=== PATIENT | male | born 1950 | race Caucasian/White ===

== ENCOUNTER 2018-08-16 14:28 | Inpatient (IN) ==
[2018-08-16] MEDS ORDERED: IPRATROPIUM/ALBUTEROL 3 ML AMPUL.NEB NEB ONE ×3 (14:31→19:34)
[2018-08-16] MEDS ORDERED: 0.9 % SODIUM CHLORIDE 1,000 ML IV ONE (14:31)
[2018-08-16 14:45] LABS: POC Blood Urea Nitrogen 19 mg/dl (8-23); POC CO2 22 mmol/L (22-30); POC Calcium, Ionized 1.14 mmol/L (1.16-1.32); POC Chloride 99 mmol/L (96-108); POC Creatinine 1.2 mg/dl (0.7-1.2); POC Glucose, Random 137 mg/dL (70-105); POC Potassium 5.3 mmol/L (3.3-5.1); POC Sodium 132 mmol/L (133-145)
--- NOTE | 2018-08-16 15:03 | Emergency Department Note ---
SOB HPI - General Chief Complaint: Shortness of Breath/Dyspnea Stated Complaint: Shortness of breath Time Seen by Provider: 08/16/18 14:49 Source: patient Mode of arrival: ambulatory Limitations: physical limitation - History of Present Illness This gentleman was wheezing and short of breath and feels like he has abdominal swelling pushing up into his lungs causing it to be difficult to breathe. He is felt like this bloating is been going on for the last week and a half. He is also noted that his legs have been swelling. He is concerned about may be having pulmonary edema, has not had this before. 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 He has no history of liver or kidney disease. No recent upper respiratory infection. He is gained 20 pounds in the last 2 weeks. He does have a history of a heart attack in his 30s in 1982 with an LAD that was two thirds blocked. He has not had angioplasty or bypass. - Related Data Home Medications Medication Instructions Recorded Confirmed Alprostadil [Edex] 40 mcg IC PRN PRN 08/16/18 08/16/18 Atenolol [Tenormin] 10 mg PO DAILY 08/16/18 08/16/18 FLUoxetine HCL [Prozac] 40 mg PO DAILY 08/16/18 08/16/18 HYDROcodone/APAP 10/325MG [[place] 1 tab PO Q4H PRN 08/16/18 08/16/18 10-325Mg] Ipratropium/Albuterol Sulfate 1 puff INH PRN PRN 08/16/18 08/16/18 [Combivent] Isosorbide Mononitrate [Isosorbide 120 mg PO DAILY 08/16/18 08/16/18 Mononitrate ER] Lisinopril [Zestril] 20 mg PO DAILY 08/16/18 08/16/18 OLANZapine [Zyprexa] 10 mg PO DAILY 08/16/18 08/16/18 Omeprazole [PriLOSEC] 20 mg PO BIDAC 08/16/18 08/16/18 amLODIPine [Norvasc] 5 mg PO DAILY 08/16/18 08/16/18 Allergies Allergy/AdvReac Type Severity Reaction Status Date / Time morphine [MORPHINE] Allergy Severe ITCHING Verified 08/16/18 15:00 oxycodone Allergy Unknown Verified 08/16/18 15:00 niacin [NIACIN] AdvReac Mild FLUSH Verified 08/16/18 15:00 aspirin AdvReac Itching Verified 08/16/18 15:01 Review of Systems Review of Systems: No fevers. No chills. Has had some sweats but he recently finished treatment under Dr. Saunders, oncologist of [facility] (sp?), 1 of the hormonal treatments for prostate cancer. No chest pain Has been coughing a fair amount and some wheezing this been significant. No phlegm or minimal. No nausea vomiting No dysuria or frequency Has some chronic back pain with history of surgery. No rashes Chronic anxiety and depression for which she recently has been placed on fluoxetine per Past Medical History - Past Medical History [facility] Narrative: Medical History (Last Updated 08/16/18 @ 16:25 by Ray Smith DO) Depression with anxiety (Chronic) Cigarette smoker (Chronic) Hypertension, essential (Chronic) Prostate cancer (Chronic) Obesity (BMI 30.0-34.9) (Chronic) CAD (coronary artery disease) (Chronic) Hx of myocardial infarction (Chronic) Past Surgical History (Last Updated 08/16/18 @ 16:28 by Ray Smith DO) S/P cholecystectomy (Acute) S/P lumbar discectomy (Acute) S/P lumbar fusion (Acute) Family History (Last Updated 08/16/18 @ 16:29 by Ray Smith DO) Father CAD (coronary artery disease) Diabetes mellitus Psychiatric history: Reports: anxiety, depression - Social History smoking status: Current every day smoker Packs per day: 1 Alcohol use: Reports: None Drug use: Reports: none. Denies: marijuana Physical Exam Limitations: physical limitation General appearance: alert, in distress (Mild tripoding and sitting up in chair, refuses bed.) Head: atraumatic, normocephalic Eye: Present: EOMI ENT: mucous membranes dry Neck: Present: trachea midline. Absent: lymphadenopathy, thyromegaly Chest: Present: symmetric chest wall rise Respiratory: Present: respiratory distress (Some rapid breathing.), rales/crack les (Trace), wheezes (Polyphonic expiratory mild moderately through multiple lung manning.), accessory muscle use (Mildly). Absent: stridor, prolonged expiratory phase Cardiovascular: Present: regular rate, normal rhythm. Absent: systolic murmur, diastolic murmur Abdominal: Present: soft. Absent: distention, tenderness, guarding, rebound, rigidity, organomegaly, mass Extremities: Present: pedal edema, pretibial edema (2+/4 pitting bilateral.). Absent: calf tenderness Neurological: Present: alert, oriented X3 Psychiatric: Present: normal affect, normal mood Skin: Present: warm, dry Course Vital Signs Pulse Rate 99 H 08/16/18 14:37 Respiratory Rate 30 H 08/16/18 14:37 Blood Pressure 141/121 08/16/18 14:37 Pulse Oximetry (%) 82 L 08/16/18 14:37 Pulse Rate 96 H 08/16/18 16:01 Respiratory Rate 22 08/16/18 15:09 Blood Pressure 117/77 08/16/18 16:01 Pulse Oximetry (%) 99 08/16/18 16:01 Shortness of Breath/Dyspnea - [facility] Narrative Medical decision making narrative: 2:52 PM - Patient received 1 DuoNeb early in his transport and stay. On my repeat exam was still wheezing and a second DuoNeb was ordered. Labs ordered. Ordered. ABG ordered. Chest x-ray is read as having increase in interstitial markings increased size of the heart but not specifically cardiomegaly at this point in time. No infiltrate visible. 3:32 PM - ABG demonstrates relatively normal pH and PCO2. PO2 is 69 but oximetry was 82%. Carboxyhemoglobin interestingly enough was 12%! We will place him on high flow oxygen. 4:00 PM - patient reports that he is not around any gas burning or propane burning or other sources of carbon monoxide that he is aware of. He does not have a sense of exhaust in his vehicle. He has not been in an enclosed garage around engines or equipment. He has had some headache and some dizziness recently. He is not had confusion or memory difficulties or visual disturbances. 5:10 PM - spoke with Dr. Lara, hospitalist, who kindly accepts this patient's care. He would like to have patient on BiPAP to help see if that will clear air spaces of her interstitial spaces of extra fluid. Patient is received furosemide 20 mg. His BNP was 2700; troponin less than 0.01. He was able to ambulate to the bathroom stably and easily and well. He still goes down to 84% on room air. We also concluded to go ahead with Solu- Medrol to 62.5 mg. Antibiotics are not being initiated at this point, patient had a procalcitonin less than 0.05. With patient having the 20 pound weight gain that is somewhat unexplained, if this does not turn around easily and well from a cardiopulmonary standpoint, consider CT scan of abdomen and pelvis. - Medical Records Medical records reviewed: Yes I reviewed the patient's medical records. - Lab Data Lab results reviewed: Yes I reviewed the patient's lab results. Result diagrams: 08/16/18 14:38 08/16/18 14:39 Lab Results 08/16/18 08/16/18 08/16/18 Range/Units 14:32 14:38 14:38 WBC 11.0 (4.5-11.0) K/mcL RBC 4.41 L (4.50-5.90) M/mcL Hgb 14.3 (13.5-16.5) g/dL Hct 43.0 (41.0-55.0) % POC Hct 44.0 (41.0-55.0) % MCV 97.6 (80.0-100.0) fL MCH 32.4 (26.0-34.0) pg MCHC 33.2 (31.0-36.0) g/dL RDW 16.3 H (11.5-14.5) % Plt Count 236 (140-440) K/mcL MPV 7.1 L (7.4-10.4) fL Gran % 83.5 H (38.0-78.0) % Lymph % (Auto) 9.5 L (15.5-49.0) % Dewey % (Auto) 6.0 (1.0-12.0) % Eos % (Auto) 0.7 (0.0-7.0) % Baso % (Auto) 0.3 (0.0-2.0) % Gran # 9.2 H (1.8-8.0) K/mcL Lymph # (Auto) 1.0 L (1.5-4.8) K/mcL Dewey # (Auto) 0.7 (0.1-0.9) K/mcL Eos # (Auto) 0.1 (0.0-0.7) K/mcL Baso # (Auto) 0 (0.0-0.3) K/mcL D-Dimer Patient Temperature ABG pH (7.35-7.45) U ABG pH (Temp Correct) ABG pCO2 (35.0-45.0) mmHg ABG pCO2 (Temp Corrct ABG pO2 (80-100) mmHg ABG pO2 (Temp Correct ABG HCO3 (22.0-26.0) mmol/L ABG Total CO2 (23.0-27.0) mmol/L ABG O2 Saturation (94.0-97.0) % ABG Base Excess (-2.0-2.0) ABG Methemoglobin (0.4-1.5) % VBG Lactic Acid (0.5-2.0) mmol/L Carboxyhemoglobin (0.0-1.5) % THgb Total Hemoglobin (13.5-16.5) gm/dL Respiration Rate O2 Delivery Method O2 Delivery Level Vent Mode FiO2 Tidal Volume PEEP POC Sodium 132 L (133-145) mmol/L Sodium 134 (133-145) mmol/L POC Potassium 5.3 H (3.3-5.1) mmol/L Potassium 5.6 H (3.3-5.1) mmol/L POC Chloride 99 (96-108) mmol/L Chloride 99 (96-108) mmol/L Carbon Dioxide 20 L (22-30) mmol/L POC Total CO2 22 (22-30) mmol/L Anion Gap 15.0 (8-16) POC BUN 19 (8-23) mg/dl BUN 17 (8-23) mg/dl Creatinine 1.2 (0.7-1.2) mg/dl POC Creatinine 1.2 (0.7-1.2) mg/dl GFR Calculation 63 Glucose 139 H (70-105) mg/dL POC Glucose 137 H (70-105) mg/dL Calcium 9.0 (8.6-10.4) mg/dl POC WB Ioniz Calcium 1.14 L (1.16-1.32) mmol/L Total Bilirubin 0.5 (0.0-1.0) mg/dL AST 14 (0-37) U/l ALT 52 H (0-40) U/l Alkaline Phosphatase 114 (39-117) U/L Total Creatine Kinase 194 (24-195) IU/L CK-MB (CK-2) 8.4 H (0-4.9) ng/ml Troponin T < 0.01 (0-0.03) ng/ml NT-Pro-B Natriuret Pep 2699.0 H (0-125) pg/ml Total Protein 6.0 (5.9-8.4) gm/dL Albumin 3.7 (3.2-5.2) gm/dL Globulin 2.3 (2.2-3.7) gm/dL Albumin/Globulin Ratio 1.6 (1.0-2.3) Procalcitonin (<0.10) ng/mL 08/16/18 08/16/18 08/16/18 Range/Units 14:38 14:38 14:39 WBC (4.5-11.0) K/mcL RBC (4.50-5.90) M/mcL Hgb (13.5-16.5) g/dL Hct (41.0-55.0) % POC Hct (41.0-55.0) % MCV (80.0-100.0) fL MCH (26.0-34.0) pg MCHC (31.0-36.0) g/dL RDW (11.5-14.5) % Plt Count (140-440) K/mcL MPV (7.4-10.4) fL Gran % (38.0-78.0) % Lymph % (Auto) (15.5-49.0) % Dewey % (Auto) (1.0-12.0) % Eos % (Auto) (0.0-7.0) % Baso % (Auto) (0.0-2.0) % Gran # (1.8-8.0) K/mcL Lymph # (Auto) (1.5-4.8) K/mcL [place]wey # (Auto) (0.1-0.9) K/mcL Eos # (Auto) (0.0-0.7) K/mcL Baso # (Auto) (0.0-0.3) K/mcL D-Dimer Cancelled Patient Temperature ABG pH (7.35-7.45) U ABG pH (Temp Correct) ABG pCO2 (35.0-45.0) mmHg ABG pCO2 (Temp Corrct ABG pO2 (80-100) mmHg ABG pO2 (Temp Correct ABG HCO3 (22.0-26.0) mmol/L ABG Total CO2 (23.0-27.0) mmol/L ABG O2 Saturation (94.0-97.0) % ABG Base Excess (-2.0-2.0) ABG Methemoglobin (0.4-1.5) % VBG Lactic Acid (0.5-2.0) mmol/L Carboxyhemoglobin (0.0-1.5) % THgb Total Hemoglobin (13.5-16.5) gm/dL Respiration Rate O2 Delivery Method O2 Delivery Level Vent Mode FiO2 Tidal Volume PEEP POC Sodium (133-145) mmol/L Sodium TNP (133-145) mmol/L POC Potassium (3.3-5.1) mmol/L Potassium TNP (3.3-5.1) mmol/L POC Chloride (96-108) mmol/L Chloride TNP (96-108) mmol/L Carbon Dioxide TNP (22-30) mmol/L POC Total CO2 (22-30) mmol/L Anion Gap TNP (8-16) POC BUN (8-23) mg/dl BUN TNP (8-23) mg/dl Creatinine TNP (0.7-1.2) mg/dl POC Creatinine (0.7-1.2) mg/dl GFR Calculation TNP Glucose TNP (70-105) mg/dL POC Glucose (70-105) mg/dL Calcium TNP (8.6-10.4) mg/dl POC WB Ioniz Calcium (1.16-1.32) mmol/L Total Bilirubin TNP (0.0-1.0) mg/dL AST TNP (0-37) U/l ALT TNP (0-40) U/l Alkaline Phosphatase TNP (39-117) U/L Total Creatine Kinase TNP (24-195) IU/L CK-MB (CK-2) (0-4.9) ng/ml Troponin T (0-0.03) ng/ml NT-Pro-B Natriuret Pep (0-125) pg/ml Total Protein TNP (5.9-8.4) gm/dL Albumin TNP (3.2-5.2) gm/dL Globulin TNP (2.2-3.7) gm/dL Albumin/Globulin Ratio TNP (1.0-2.3) Procalcitonin < 0.05 (<0.10) ng/mL 08/16/18 08/16/18 Range/Units 14:40 14:47 WBC (4.5-11.0) K/mcL RBC (4.50-5.90) M/mcL Hgb (13.5-16.5) g/dL Hct (41.0-55.0) % POC Hct (41.0-55.0) % MCV (80.0-100.0) fL MCH (26.0-34.0) pg MCHC (31.0-36.0) g/dL RDW (11.5-14.5) % Plt Count (140-440) K/mcL MPV (7.4-10.4) fL Gran % (38.0-78.0) % Lymph % (Auto) (15.5-49.0) % Dewey % (Auto) (1.0-12.0) % Eos % (Auto) (0.0-7.0) % Baso % (Auto) (0.0-2.0) % Gran # (1.8-8.0) K/mcL Lymph # (Auto) (1.5-4.8) K/mcL [place]wey # (Auto) (0.1-0.9) K/mcL Eos # (Auto) (0.0-0.7) K/mcL Baso # (Auto) (0.0-0.3) K/mcL D-Dimer Patient Temperature Not Reportable ABG pH 7.37 (7.35-7.45) U ABG pH (Temp Correct) Not Reportable ABG pCO2 39.5 (35.0-45.0) mmHg ABG pCO2 (Temp Corrct Not Reportable ABG pO2 69 L (80-100) mmHg ABG pO2 (Temp Correct Not Reportable ABG HCO3 22.1 (22.0-26.0) mmol/L ABG Total CO2 23.3 (23.0-27.0) mmol/L ABG O2 Saturation 80.3 L (94.0-97.0) % ABG Base Excess -3.0 L (-2.0-2.0) ABG Methemoglobin 0.3 L (0.4-1.5) % VBG Lactic Acid 2.2 H (0.5-2.0) mmol/L Carboxyhemoglobin 12.0 H (0.0-1.5) % THgb Total Hemoglobin 13.5 (13.5-16.5) gm/dL Respiration Rate Not Reportable O2 Delivery Method Not Reportable O2 Delivery Level Not Reportable Vent Mode Not Reportable FiO2 Not Reportable Tidal Volume Not Reportable PEEP Not Reportable POC Sodium (133-145) mmol/L Sodium (133-145) mmol/L POC Potassium (3.3-5.1) mmol/L Potassium (3.3-5.1) mmol/L POC Chloride (96-108) mmol/L Chloride (96-108) mmol/L Carbon Dioxide (22-30) mmol/L POC Total CO2 (22-30) mmol/L Anion Gap (8-16) POC BUN (8-23) mg/dl BUN (8-23) mg/dl Creatinine (0.7-1.2) mg/dl POC Creatinine (0.7-1.2) mg/dl GFR Calculation Glucose (70-105) mg/dL POC Glucose (70-105) mg/dL Calcium (8.6-10.4) mg/dl POC WB Ioniz Calcium (1.16-1.32) mmol/L Total Bilirubin (0.0-1.0) mg/dL AST (0-37) U/l ALT (0-40) U/l Alkaline Phosphatase (39-117) U/L Total Creatine Kinase (24-195) IU/L CK-MB (CK-2) (0-4.9) ng/ml Troponin T (0-0.03) ng/ml NT-Pro-B Natriuret Pep (0-125) pg/ml Total Protein (5.9-8.4) gm/dL Albumin (3.2-5.2) gm/dL Globulin (2.2-3.7) gm/dL Albumin/Globulin Ratio (1.0-2.3) Procalcitonin (<0.10) ng/mL - Radiology Data Radiology results reviewed: Yes I reviewed the patient's radiology results. - EKG Data EKG results narrative: No acute coronary syndrome findings. This ECG will be read by a equipment validation specialist. Disposition Pt seen by SALES PRODUCT MANAGER/PA only: No Clinical Impression: Hypoxia, Anasarca, Interstitial lung disease CHF (congestive heart failure) Qualifiers: Heart failure type: unspecified Heart failure chronicity: acute Qualified Code(s): I50.9 - Heart failure, unspecified Disposition: Xfer As Inpt ([facility]) Referrals: Papo Vega MD [Primary Care Provider] -
[2018-08-16 15:10] LABS: ABG HCO3 22.1 mmol/L (22.0-26.0); ABG Methemoglobin 0.3 % (0.4-1.5); ABG Oxygen Saturation 80.3 % (94.0-97.0); ABG PCO2 39.5 mmHg (35.0-45.0); ABG PH 7.37 U (7.35-7.45); ABG PO2 69 mmHg (80-100); ABG TCO2 23.3 mmol/L (23.0-27.0); Total Hemoglobin 13.5 gm/dL (13.5-16.5)
--- NOTE | 2018-08-16 15:13 | XRay Report ---
HISTORY: Shortness of breath FINDINGS: There are prominent increased interstitial lung markings bilaterally. Lung volumes are normal and there is no lobar consolidation or evidence of a mass. No pleural effusion is present. Although the heart is not enlarged, it has increased in size since 04/23/11. The interstitial lung disease has also become worse. IMPRESSION: Interstitial lung disease, predominantly involving the lower lobes. This could be a combination of underlying pulmonary fibrosis and inflammation. Superimposed congestive heart failure cannot be excluded. Increasing heart size since 2011 Interpreted and Authenticated by: Jose Gross 08/16/18
[2018-08-16 15:18] LABS: Basophils # (Auto) 0 K/mcL (0.0-0.3); Basophils % (Auto) 0.3 % (0.0-2.0); Eosinophils # (Auto) 0.1 K/mcL (0.0-0.7); Eosinophils % (Auto) 0.7 % (0.0-7.0); Granulocytes % (Auto) 83.5 % (38.0-78.0); Hemoglobin 14.3 g/dL (13.5-16.5); Lymphocytes % (Auto) 9.5 % (15.5-49.0); Mean Cell Volume 97.6 fL (80.0-100.0); Mean Corpuscular HGB Conc 33.2 g/dL (31.0-36.0); Mean Platelet Volume 7.1 fL (7.4-10.4); Monocytes # (Auto) 0.7 K/mcL (0.1-0.9); Platelet Count 236 K/mcL (140-440); RBC 4.41 M/mcL (4.50-5.90); Red Cell Distribution Width 16.3 % (11.5-14.5)
[2018-08-16] MEDS ORDERED: FUROSEMIDE 20 MG/2 ML VIAL IV ONE ×2 (15:26→17:05)
[2018-08-16 15:39] LABS: Creatine Kinase MB 8.4 ng/ml (0-4.9)
[2018-08-16 15:41] LABS: ALT/SGPT 52 U/l (0-40); AST/SGOT 14 U/l (0-37); Albumin 3.7 gm/dL (3.2-5.2); Albumin/Globulin Ratio 1.6 (1.0-2.3); Alkaline Phosphatase 114 U/L (39-117); Bilirubin,Total 0.5 mg/dL (0.0-1.0); Blood Urea Nitrogen 17 mg/dl (8-23); Carbon Dioxide 20 mmol/L (22-30); Chloride 99 mmol/L (96-108); Creatine Kinase 194 IU/L (24-195); Globulin 2.3 gm/dL (2.2-3.7); Glomerular Filtration Rate 63; Glucose 139 mg/dL (70-105); Potassium 5.6 mmol/L (3.3-5.1); Sodium 134 mmol/L (133-145)
[2018-08-16] MEDS ORDERED: methylPREDNISolone SOD SUCC 125 MG/2 ML VIAL IV ONE (17:23)
--- NOTE | 2018-08-16 18:30 | Internal Med History&Physical ---
Medical - H&P: [facility] Patient information: Note initiated : 08/16/18 at 6:27 pm Service Date, if different from initiated Date: [] Patient: Sam Dexter a 68 y/o M admitted on for SOB . Chief Complaint: [] Chief complaint: progressive shortness of breath, cough History of present illness: Mr. Dexter is a 68 year old M history of COPD/hypertension and coronary artery disease at age 33 who presents to 2 week onset of worsening shortness of breath, gradual weight gain, orthopnea and productive cough along with wheezing. Patient denied associated chest pain or changes in medication or NSAID intake. He tried to work with the symptoms only to get progressively worse with what started as dyspnea on maximal exertion dramatically progressed to dyspnea at rest along with orthopnea. In process patient endorses to gaining over 20 pounds weight mostly in the lower extremity and torso. He also continues to smoke a pack a day. He denies paroxysmal nocturnal dyspnea but endorses to non-bloody cough, denies chest palpitation, tearing headache, photophobia or fever. Denies sick contact. He lives alone and continues to smoke a pack a day. Denies alcohol or substance abuse. He denies previous hospitalization except for myocardial infarction is 33. Follows up with primary care physician Dr. Vega Review of systems 10 point review of system was performed and is negative except ones Medical - H&P: PMH Medical history: COPD Depression with anxiety (Chronic) Cigarette smoker (Chronic) Hypertension, essential (Chronic) Prostate cancer (Chronic) Obesity (BMI 30.0-34.9) (Chronic) History of [place]/CAD at age 33 (coronary artery disease) (Chronic) DJD GERD ANXIETY Past Surgical History S/P cholecystectomy (Acute) S/P lumbar discectomy (Acute) S/P lumbar fusion (Acute) Family History Father CAD (coronary artery disease) Diabetes mellitus Psychiatric history: Reports: anxiety, depression - Social History smoking status: Current every day smoker Packs per day: 1 Alcohol use: Reports: None Drug use: Reports: none. 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 Medical - H&P: Meds Home Medications Medication Instructions Recorded Confirmed Type Alprostadil [Edex] 40 mcg IC PRN PRN 08/16/18 08/16/18 History Atenolol [Tenormin] 10 mg PO DAILY 08/16/18 08/16/18 History FLUoxetine HCL [Prozac] 40 mg PO HS 08/16/18 08/17/18 History HYDROcodone/APAP 10/325MG [[place] 1 tab PO Q4H PRN 08/16/18 08/16/18 History 10-325Mg] Ipratropium/Albuterol Sulfate 1 puff INH PRN PRN 08/16/18 08/16/18 History [Combivent] Isosorbide Mononitrate [Isosorbide 120 mg PO DAILY 08/16/18 08/16/18 History Mononitrate ER] Lisinopril [Zestril] 20 mg PO DAILY 08/16/18 08/16/18 History OLANZapine [Zyprexa] 10 mg PO HS 08/16/18 08/17/18 History Omeprazole [PriLOSEC] 20 mg PO BIDAC 08/16/18 08/16/18 History amLODIPine [Norvasc] 5 mg PO DAILY 08/16/18 08/16/18 History Allergies Allergy/AdvReac Type Severity Reaction Status Date / Time aspirin AdvReac Mild Itching Verified 08/17/18 07:36 morphine [MORPHINE] AdvReac Mild Itching Verified 08/17/18 07:36 niacin [NIACIN] AdvReac Mild FLUSH Verified 08/16/18 15:00 oxycodone AdvReac Mild Itching Verified 08/17/18 10:18 Medical - H&P: Exam - Constitutional Vitals: Pulse Resp BP Pulse Ox 69 30 H 126/84 97 08/16/18 17:35 08/16/18 17:59 08/16/18 17:00 08/16/18 17:35 General appearance: average body habitus, no acute distress Exam: Short of breath but able to talk in near full sentences Head normocephalic Neck no lymphadenopathy oral cavity dry no ear discharge S1 and S2 regular rhythm no murmur Diminished breath sounds/bilateral late inspiratory crackles posteriorly and lateral chest Abdomen soft nontender Lower extremity bilateral pitting edema from knee to the dorsum of the foot Skin no suspicious lesion Psych alert cooperative Neuro nonfocal Medical - H&P: Reslt - Labs CBC & Chem 7: 08/17/18 03:45 08/17/18 03:45 Labs: Short CBC 08/16/18 Range/Units 14:38 WBC 11.0 (4.5-11.0) K/mcL Hgb 14.3 (13.5-16.5) g/dL Hct 43.0 (41.0-55.0) % Plt Count 236 (140-440) K/mcL BMP 08/16/18 08/16/18 14:38 14:39 Sodium 134 TNP Potassium 5.6 H TNP Chloride 99 TNP Carbon Dioxide 20 L TNP BUN 17 TNP Creatinine 1.2 TNP Glucose 139 H TNP Calcium 9.0 TNP Cardiac Enzymes 08/16/18 08/16/18 08/16/18 Range/Units 14:32 14:38 14:39 Total Creatine Kinase 194 TNP (24-195) IU/L CK-MB (CK-2) 8.4 H (0-4.9) ng/ml Troponin T < 0.01 (0-0.03) ng/ml Liver Function 08/16/18 08/16/18 Range/Units 14:38 14:39 Total Bilirubin 0.5 TNP (0.0-1.0) mg/dL AST 14 TNP (0-37) U/l ALT 52 H TNP (0-40) U/l Alkaline Phosphatase 114 TNP (39-117) U/L Albumin 3.7 TNP (3.2-5.2) gm/dL - ABG Interpretation ABG results: 08/16/18 14:40 ABG pH 7.37 ABG pCO2 39.5 ABG pO2 69 L ABG HCO3 22.1 ABG Total CO2 23.3 ABG O2 Saturation 80.3 L ABG Base Excess -3.0 L ABG Methemoglobin 0.3 L Medical - H&P: A/P (1) CHF (congestive heart failure) Current visit: Yes Status: Acute * Acute decompensated heart failure-start aggressive diuresis. Optimize management based on echo finding. Telemetry monitoring. * COPD exacerbation-continuous steroid/bronchodilators/smoking cessation counseling/oxygen * Hypoxic respiratory failure start noninvasive ventilation for increased work of breathing and clearing interstitial edema secondary to underlying CHF * Hypertension continue lisinopril/atenolol/amlodipine history of CAD continue isosorbide/ESTELA inhibitor * Anxiety disorder continue fluoxetine/olanzapine * GERD continue PPI * DJD continue home dose hydrocodone * Full code * Prophylaxis heparin Plan * Inpatient admission * Noninvasive ventilation * Aggressive diuresis/echocardiogram * Bronchodilators steroids * Smoking cessation counseling * Pre-existing medical condition management as above Time spent on his physical over 65 minutes, additional 25 minutes critical time spent on management of hypoxic respiratory failure/decompensated heart failure/noninvasive ventilation, reviewing blood gases and imaging (2) Hypoxia Current visit: Yes Status: Acute
[2018-08-16] MEDS ORDERED: MAGNESIUM SULFATE 2 GM/50 ML BAG IV PRN (19:19)
[2018-08-16] MEDS ORDERED: ACETAMINOPHEN 325 MG TABLET PO PRN (19:19)
[2018-08-16] MEDS ORDERED: ALPROSTADIL 40 MCG IC PRN (19:19)
[2018-08-16] MEDS ORDERED: ONDANSETRON 4 MG/2 ML VIAL IV PRN (19:19)
[2018-08-16] MEDS ORDERED: IPRATROPIUM/ALBUTEROL SULFATE 1 PUFF INHALER INH PRN (19:19)
[2018-08-16] MEDS ORDERED: ACETAMINOPHEN 1,000 MG/100 ML BOTTLE IV PRN (19:19)
[2018-08-16] MEDS ORDERED: POTASSIUM CHLORIDE 20 MEQ PACKET PO PRN (19:19)
[2018-08-16] MEDS: IPRATROPIUM/ALBUTEROL 3 ML AMPUL.NEB NEB SCH ×2 (19:28→23:20)
[2018-08-16] MEDS: BUDESONIDE 0.5 MG/2 ML AMPUL.NEB NEB SCH (19:28)
[2018-08-16 19:54] LABS: Appearance,Urine CLEAR; Bacteria,Urine 0 /hpf (0); Bilirubin,Urine NEG (NEG); Color,Urine YELLOW; Culture Indicated,Urine NO; Glucose,Urine (UA) NEGATIVE (NEG); Ketones,Urine NEG (NEG); Leukocyte Esterase,Urine NEG /uL (NEG); Mucus,Urine FEW /hpf (0); Nitrate,Urine NEG (NEG); Protein,Urine 100 mg/dL (NEG); Urine Blood NEG mg/dL (<0.03); Urine Hyaline Cast 14 /lpf (0-2); Urine RBC 1 /hpf (0-1); Urine Squamous Epithelial Cell 0 /hpf (0-4); Urine Transitional Epi Cells < 1 /hpf (0-2); Urine WBC 1 /hpf (0-4); Urobilinogen,Urine NEG (NEG)
[2018-08-16] MEDS: HYDROcodone/APAP 10/325MG TABLET PO PRN (20:34)
[2018-08-16] MEDS: OMEPRAZOLE 20 MG CAPSULE PO SCH (20:35)
[2018-08-16] MEDS: LEVOFLOXACIN 750 MG/150 ML BAG IV SCH (20:35)
[2018-08-16] MEDS: DOCUSATE SODIUM 100 MG CAPSULE PO SCH (21:25)
[2018-08-16] MEDS: SENNOSIDES/DOCUSATE SODIUM 1 TAB TABLET PO SCH (21:25)
[2018-08-16] MEDS: HEPARIN 5,000 UNIT/ML VIAL SQ SCH (21:25)
[2018-08-16] MEDS: 0.9 % SODIUM CHLORIDE 10 ML SYRINGE IV SCH (21:30)
[2018-08-16] MEDS: FLUoxetine HCL 20 MG CAPSULE PO SCH (22:56)
[2018-08-16] MEDS: OLANZapine 5 MG TABLET PO SCH (22:56)
[2018-08-17] MEDS ORDERED: FUROSEMIDE 40 MG/4 ML VIAL IV ONE ×2 (01:26→01:31)
[2018-08-17] MEDS: HYDROcodone/APAP 10/325MG TABLET PO PRN ×5 (01:31→20:23)
[2018-08-17] MEDS: IPRATROPIUM/ALBUTEROL 3 ML AMPUL.NEB NEB SCH ×4 (02:50→18:53)
[2018-08-17 06:09] LABS: Hematocrit 42.4 % (41.0-55.0); Hemoglobin 14.1 g/dL (13.5-16.5); Mean Cell Volume 98.3 fL (80.0-100.0); Mean Corpuscular HGB Conc 33.2 g/dL (31.0-36.0); Mean Platelet Volume 7.4 fL (7.4-10.4); Platelet Count 220 K/mcL (140-440); RBC 4.32 M/mcL (4.50-5.90); Red Cell Distribution Width 16.2 % (11.5-14.5); WBC 6.6 K/mcL (4.5-11.0)
[2018-08-17 06:33] LABS: ALT/SGPT 48 U/l (0-40); AST/SGOT 13 U/l (0-37); Albumin 3.7 gm/dL (3.2-5.2); Albumin/Globulin Ratio 1.5 (1.0-2.3); Alkaline Phosphatase 114 U/L (39-117); Bilirubin,Direct < 0.2 mg/dL (0.0-0.3); Bilirubin,Total 0.4 mg/dL (0.0-1.0); Blood Urea Nitrogen 17 mg/dl (8-23); Carbon Dioxide 22 mmol/L (22-30); Chloride 97 mmol/L (96-108); Gamma Glutamyl Transpeptidase 33 U/L (8-61); Globulin 2.4 gm/dL (2.2-3.7); Glomerular Filtration Rate 63; Glucose 168 mg/dL (70-105); Lactate Dehydrogenase 257 U/L (94-250); Magnesium 1.5 mg/dL (1.6-2.5); Potassium 4.9 mmol/L (3.3-5.1); Sodium 134 mmol/L (133-145); Triglycerides 90 mg/dl (<150); Uric Acid 5.3 mg/dL (2.5-8.0)
[2018-08-17] MEDS: 0.9 % SODIUM CHLORIDE 10 ML SYRINGE IV SCH ×3 (06:54→20:20)
[2018-08-17] MEDS: BUDESONIDE 0.5 MG/2 ML AMPUL.NEB NEB SCH ×3 (07:09→19:26)
[2018-08-17] MEDS: OMEPRAZOLE 20 MG CAPSULE PO SCH ×2 (07:42→16:24)
[2018-08-17] MEDS ORDERED: FUROSEMIDE 40 MG/4 ML VIAL IV SCH (08:00)
[2018-08-17 08:14] LABS: Anisocytosis 1+ (NONE SEEN); Band Neutrophils % 1 % (0-10); Lymphocytes % 6 % (15-49); Monocytes % (Manual) 2 % (1-12); Platelet Estimate NORMAL (NORMAL); RBC Morphology ABNORM (NORMAL); Segmented Neutrophils % 91 % (38-78)
[2018-08-17] MEDS ORDERED: ATENOLOL 25 MG TABLET PO SCH (09:00)
[2018-08-17] MEDS ORDERED: FLUoxetine HCL 20 MG CAPSULE PO SCH (09:00)
[2018-08-17] MEDS: LISINOPRIL 20 MG TABLET PO SCH (10:03)
[2018-08-17] MEDS: amLODIPine 5 MG TABLET PO SCH (10:03)
[2018-08-17] MEDS: ISOSORBIDE MONONITRATE 60 MG TAB.XL.24H PO SCH (10:03)
[2018-08-17] MEDS: THIAMINE 100 MG TABLET PO SCH (10:03)
[2018-08-17] MEDS: DOCUSATE SODIUM 100 MG CAPSULE PO SCH ×2 (10:03→20:19)
[2018-08-17] MEDS: MULTIVIT,THER IRON,CA,FA & MIN 1 TABLET PO SCH (10:03)
[2018-08-17] MEDS: HEPARIN 5,000 UNIT/ML VIAL SQ SCH ×2 (10:03→20:19)
[2018-08-17] MEDS: METOPROLOL SUCCINATE 25 MG TAB.XL.24H PO SCH (11:02)
--- NOTE | 2018-08-17 11:22 | Cat Scan Report ---
CLINICAL INFORMATION: COPD, pneumonia, cor pulmonale and prostate cancer COMPARISON: 04/13/10, 08/21/09 TECHNIQUE: 2.5 mm axial slices were obtained from the lung apices through the bases without intravenous contrast. Sagittal, coronal and axial reformatted images were processed and reviewed at bone, lung and soft tissue windows. 7 mm axial MIP images were also reconstructed. The radiation exposure was limited using dose reduction technology. FINDINGS: There is moderate centrilobular emphysema throughout both lungs with the greatest involvement in the upper lobes. This has gradually progressed since 2009. There is no evidence of pneumonia. There are bands of scar tissue in the right middle lobe, lingula and posteriorly in both lower lobes. Associated with this is some traction bronchiectasis in the medial segment of the right middle lobe. There are 8-10 small scattered peripheral noncalcified pulmonary nodules throughout both lungs. The largest is located laterally in the right lower lobe on image #[id number]. It Measures 10 mm. These nodules have been present for many years and there has been subtle variability in size of the nodules. The dominant nodule in the right lower lobe measured 8.3 mm in 2010. No new lung mass has developed. The pulmonary arteries are difficult to evaluate without contrast but there is enlargement of the central arteries. Main pulmonary artery is 3.8 cm in diameter. The ascending aorta is 3.3 cm in diameter. Pulmonary emboli cannot be detected on this study. There are a few reactive lymph nodes in the pretracheal retrocaval space. These were seen on prior studies and have not changed significantly. There is no pleural effusion. Patient does have bronchial wall thickening of both lower lobes and there are segments of the spleen; the third order branches in the medial and posterior basal segments of the right lower lobe. The heart is normal in size and contour. There is mild plaque formation in the left main proximal left anterior descending coronary artery. There is also plaque formation in the aorta. Bone windows show no lytic or blastic metastasis. IMPRESSION: Moderate emphysema which may cause pulmonary artery hypertension Multiple small peripheral pulmonary nodules. Some of them have increased in size when millimeter since 2010. These are most likely granulomata. Bronchitis in the lower lobes, right worse than left Interpreted and Authenticated by: Jose Gross 08/17/18
--- NOTE | 2018-08-17 14:48 | Internal Med Progress Note ---
Medical - PN: Subj Patient information: Note initiated : 08/17/18 at 2:46 pm Service Date, if different from initiated Date: [] Patient: Sam Dexter 68 y/o M admitted on 08/16/18 for SOB . Chief Complaint: [] Interval history: Mr. Dexter is a 68 year old M history of COPD/hypertension and coronary artery disease at age 33 who presents to 2 week onset of worsening shortness of breath, gradual weight gain, orthopnea and productive cough along with wheezing. Patient denied associated chest pain or changes in medication or NSAID intake. He tried to work with the symptoms only to get progressively worse with what started as dyspnea on maximal exertion dramatically progressed to dyspnea at rest along with orthopnea. In process patient endorses to gaining over 20 pounds weight mostly in the lower extremity and torso. He also continues to smoke a pack a day. He denies paroxysmal nocturnal dyspnea but endorses to non-bloody cough, denies chest palpitation, tearing headache, photophobia or fever. Denies sick contact. He lives alone and continues to smoke a pack a day. Denies alcohol or substance abuse. He denies previous hospitalization except for myocardial infarction is 33. Follows up with primary care physician Dr. Vega 08/17-patient clinically improving. Improved hypoxia. Off noninvasive ventilation currently on 4 L oxygen. However echocardiograms revealed severe hypertension with cor pulmonale. Tachycardic at 130s. Diuresis is discontinued as cardiac output preload dependent. Atenolol discontinued and switched to metoprolol. CT scan reveals emphysematous change. Neurology consulted for evaluation of severe pulmonary hypertension. Patient will require right heart catheterization/cardiology follow-up for better optimization of pulmonary hypertension. At this time patient will be continued on oxygen. Continue levofloxacin for COPD exacerbation along with bronchodilators. Discussed echo finding along with treatment plan with patient. - Constitutional Vitals: Vital Signs Temp Pulse Resp BP Pulse Ox 96.6 F L 111 H 24 H 102/61 90 08/17/18 11:51 08/17/18 11:51 08/17/18 11:51 08/17/18 11:51 08/17/18 11:51 Period Temp Pulse Resp BP Sys/Nuñez Pulse Ox Last 24 Hr 96.6 F-99.2 F 57-123 12-30 87-154/59-135 81-100 Intake and Output 08/17/18 08/17/18 08/17/18 05:59 13:59 21:59 Intake Total 387 530 Output Total 1575 1300 Balance -1188 -770 Weight 176 lb 8 oz Patient Weight 08/18/18 05:59 Weight 176 lb 8 oz Intake & Output: Intake & Output 08/17/18 08/17/18 08/17/18 05:59 13:59 21:59 Intake Total 387 530 Output Total 1575 1300 Balance -1188 -770 Weight 176 lb 8 oz Intake: IV 150 50 Oral 237 480 Output: Void Amount 1575 1300 Other: Meal 2 sandwiches/fruit cup Percent of Meal Consumed 100% Feeding Ability Independent Urine Appearance Clear Urine Color Bright Yellow General appearance: no acute distress Exam: Alert Much improved breathing Improving lymphedema Tachycardia Course respiratory crackles bilaterally Medical - PN: Obj Da - Labs CBC & Chem 7: 08/17/18 03:45 08/17/18 03:45 Labs: Abnormal Lab Results 08/17/18 08/17/18 08/16/18 03:45 03:45 19:15 RBC 4.32 L RDW 16.2 H MPV Gran % Lymph % (Auto) Gran # Lymph # (Auto) Seg Neutrophils % 91 H Lymphocytes % 6 L RBC Morphology Abnorm A Anisocytosis 1+ A ABG pO2 ABG O2 Saturation ABG Base Excess ABG Methemoglobin VBG Lactic Acid Carboxyhemoglobin POC Sodium POC Potassium Potassium Carbon Dioxide Glucose 168 H POC Glucose POC WB Ioniz Calcium Magnesium 1.5 L ALT 48 H Lactate Dehydrogenase 257 H CK-MB (CK-2) NT-Pro-B Natriuret Pep Urine Protein 100 A Hyaline Casts 14 H 08/16/18 08/16/18 08/16/18 14:47 14:40 14:38 RBC RDW MPV Gran % Lymph % (Auto) Gran # Lymph # (Auto) Seg Neutrophils % Lymphocytes % RBC Morphology Anisocytosis ABG pO2 69 L ABG O2 Saturation 80.3 L ABG Base Excess -3.0 L ABG Methemoglobin 0.3 L VBG Lactic Acid 2.2 H Carboxyhemoglobin 12.0 H POC Sodium 132 L POC Potassium 5.3 H Potassium 5.6 H Carbon Dioxide 20 L Glucose 139 H POC Glucose 137 H POC WB Ioniz Calcium 1.14 L Magnesium ALT 52 H Lactate Dehydrogenase CK-MB (CK-2) 8.4 H NT-Pro-B Natriuret Pep 2699.0 H Urine Protein Hyaline Casts 08/16/18 14:38 RBC 4.41 L RDW 16.3 H MPV 7.1 L Gran % 83.5 H Lymph % (Auto) 9.5 L Gran # 9.2 H Lymph # (Auto) 1.0 L Seg Neutrophils % Lymphocytes % RBC Morphology Anisocytosis ABG pO2 ABG O2 Saturation ABG Base Excess ABG Methemoglobin VBG Lactic Acid Carboxyhemoglobin POC Sodium POC Potassium Potassium Carbon Dioxide Glucose POC Glucose POC WB Ioniz Calcium Magnesium ALT Lactate Dehydrogenase CK-MB (CK-2) NT-Pro-B Natriuret Pep Urine Protein Hyaline Casts Meds: Medications Acetaminophen (Tylenol) 650 mg PO Q4-6HP PRN PRN Reason: PAIN/FEVER > 101 Hydrocodone Bitart/Acetaminophen ([place] 10/325mg) 1 tab PO Q4HP PRN PRN Reason: Pain Last Admin: 08/17/18 12:12 Dose: 1 tab Documented by: Albuterol/Ipratropium (Combivent) 1 puff INH Q4HP PRN PRN Reason: Shortness Of Breath Albuterol/Ipratropium (Duoneb) 3 ml NEB Q6HRT [facility] Amlodipine Besylate (Norvasc) 5 mg PO DAILY [facility] Last Admin: 08/17/18 10:03 Dose: 5 mg Documented by: Budesonide (Pulmicort) 0.5 mg NEB Q12 [facility] Last Admin: 08/17/18 07:09 Dose: 0.5 mg Documented by: Docusate Sodium (Colace) 100 mg PO BID [facility] Last Admin: 08/17/18 10:03 Dose: 100 mg Documented by: Fluoxetine HCl (Prozac) 40 mg PO HS [facility] Last Admin: 08/16/18 22:56 Dose: 40 mg Documented by: Heparin Sodium (Porcine) (Heparin) 5,000 unit SQ Q12 [facility] Last Admin: 08/17/18 10:03 Dose: 5,000 unit Documented by: Levofloxacin (Levaquin) 750 mg in 150 mls @ 100 mls/hr IV Q24H [facility]; Protocol Last Infusion: 08/16/18 22:10 Dose: Infused Documented by: Magnesium Sulfate (Magnesium Sulfate) 2 gm in 50 mls @ 50 mls/hr IV UD PRN PRN Reason: MG = or < 1.7 Last Infusion: 08/17/18 08:45 Dose: Infused Documented by: Acetaminophen (Ofirmev) 1,000 mg in 100 mls @ 200 mls/hr IV Q6HP PRN PRN Reason: PAIN/FEVER > 101 Iron Carb/Multivit/Recording Engineer/Folic Acid (Multivitamin W/Minerals) 1 tab PO DAILY [facility] Last Admin: 08/17/18 10:03 Dose: 1 tab Documented by: Isosorbide Mononitrate (Imdur) 120 mg PO DAILY [facility] Last Admin: 08/17/18 10:03 Dose: 120 mg Documented by: Lisinopril (Zestril) 20 mg PO DAILY [facility] Last Admin: 08/17/18 10:03 Dose: 20 mg Documented by: Metoprolol Succinate (Toprol Xl) 25 mg PO DAILY [facility] Last Admin: 08/17/18 11:02 Dose: 25 mg Documented by: Olanzapine (Zyprexa) 10 mg PO HS [facility] Last Admin: 08/16/18 22:56 Dose: 10 mg Documented by: Omeprazole (Prilosec) 20 mg PO BIDAC [facility] Last Admin: 08/17/18 07:42 Dose: 20 mg Documented by: Ondansetron HCl (Zofran) 4 mg IV Q4-6HP PRN PRN Reason: Nausea And Vomiting Potassium Chloride (Klor-Con) 40 meq PO DAILYP PRN PRN Reason: K+ < 3.5 Senna/Docusate Sodium (Senna Plus Tablet) 1 tab PO HS [facility] Last Admin: 08/16/18 21:25 Dose: 1 tab Documented by: Sodium Chloride (Saline Flush) 10 ml IV Q8 [facility] Last Admin: 08/17/18 06:54 Dose: Not Given Documented by: Thiamine HCl (Vitamin B1) 100 mg PO DAILY [facility] Last Admin: 08/17/18 10:03 Dose: 100 mg Documented by: - ABG Interpretation ABG results: 08/16/18 14:40 ABG pH 7.37 ABG pCO2 39.5 ABG pO2 69 L ABG HCO3 22.1 ABG Total CO2 23.3 ABG O2 Saturation 80.3 L ABG Base Excess -3.0 L ABG Methemoglobin 0.3 L Medical - PN: A/P - Time Spent With Patient Total time spent is greater than 50% in coordination of care (as documented) at patient's floor/unit and/or counseling patient: 25 - 35 minutes (1) CHF (congestive heart failure) Status: Acute Assessment and plan: * Severe pulmonary hypertension with cor pulmonale-oncology consulted. Patient on oxygen. Lower diuretic dose to avoid preload drop. Continue telemetry monitoring. Start beta shawn. Patient will need outpatient cardiology fol low-up/right heart catheterization for evaluation of pulmonary hypertension etiology. * COPD exacerbation-continuous steroid/bronchodilators/smoking cessation counseling/oxygen * Hypoxic respiratory failure off noninvasive ventilation. Currently on 4 L oxygen. Perform exercise or nocturnal oximetry/home oxygen * Hypertension continue lisinopril/atenolol/amlodipine history of CAD continue isosorbide/ESTELA inhibitor. Start beta shawn admission release metoprolol * Anxiety disorder continue fluoxetine/olanzapine * GERD continue PPI * DJD continue home dose hydrocodone * Full code * Prophylaxis heparin Plan * Pulmonary consult * Lower diuretic dose * Continue Bronchodilators steroids * Exercise/nocturnal oximetry/home oxygen on discharge * Cardiology follow-up for right heart catheterization/pulmonary hypertension evaluation * Continue Smoking cessation counseling * Pre-existing medical condition management as above Current Visit: Yes (2) Hypoxia Status: Acute Current Visit: Yes Medical - PN: Qual - Stroke Symptom Onset Unknown: No - VTE Deep Vein Thrombosis/Pulmonary Embolism Present on Admission: No
--- NOTE | 2018-08-17 15:25 | Consultation ---
DATE OF CONSULTATION: 08/17/2018 REQUESTING PHYSICIAN: Joseph Mcclure MD CONSULTING PHYSICIAN: Severo Devine MD HISTORY OF PRESENT ILLNESS: The patient is a 68-year-old gentleman who presented last evening to [facility] because of a chief complaint of increasing shortness of breath and cough. He does have a [id number] tobacco use history and continues to smoke. He indicates that he had become more difficult with his breathing and having swelling over the last 2 to 3 weeks. He had an arterial blood gas which showed a PaO2 of 65, PaCO2 of 39.5, a pH of 7.37 and a 12% carboxyhemoglobin level. He denied known source of his carbon monoxide level other than his smoking. He states that is approximately a pack plus of cigarettes a day. Echocardiogram subsequently demonstrated the presence of pulmonary hypertension with right ventricular enlargement and right ventricular systolic pressures in the 60s and 70s, estimated. The patient had not been on oxygen prior to presenting to the hospital. He was using albuterol and Combivent. He has been trying to get his health care through the [place] [facility] system. He reports a history of myocardial infarction in his early 30s. He apparently had a workup at the [place] in [place] approximately 8 years ago. He reports at that time he did have some atherosclerotic lesions, but they were either not in need of treatment or were in locations where a stent could not be delivered. He describes a dry cough going back some years, usually productive of clear sputum. He reports spring allergies. 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 He denies unusual pets, plants, or birds in the home. He does have fairly profound symptomatic gastroesophageal reflux disease. This time he is only treating stomach acid and is encouraged to implement an antireflux regimen with elevation of head of bed, empty stomach at bedtime and weight reduction as well. Regarding his pulmonary hypertension, he is given a description of circulation and hypoxic pulmonary vasoconstriction. He has carbon monoxide level of 12%. It is hard to imagine that he was not hypoxic for some extended period of time, perhaps contributing to his pulmonary hypertension. With his history of coronary artery disease, likely his pulmonary hypertension is multifactorial. He is encouraged as was discussion with Dr. Mcclure to consider cardiology evaluation in detail and consideration of right heart catheterization to better understand his pulmonary hypertension given his young age at 68 years. The patient does have issues with chronic pain and has a medical regimen, which includes hydrocodone. This could contribute to a central sleep apnea. He sleeps alone and has poor sleep secondary to pain issues. REVIEW OF SYSTEMS: Otherwise, negative on questioning in a detailed fashion. PHYSICAL EXAMINATION: GENERAL: A pleasant stated-age appearing gentleman in mild respiratory distress. High flow nasal prongs oxygen in place. HEAD: Atraumatic and normocephalic. NECK: Supple, carotids difficult to hear through high flow nasal cannula, but no apparent bruits. Neck is supple. LUNGS: Significant prolonged expiratory phase with coarse scattered rhonchi and rare wheeze. I do not hear rales. HEART: Regular at this time, pulse is weak and he is tachycardic in the 120s. There is significant dependent edema and a doughy abdomen. ABDOMEN: Soft. Bowel sounds present decreased. BONES/JOINTS/EXTREMITIES: Without acute changes. Edema significantly bilaterally, left slightly worse than the right. NEUROLOGIC: Nonfocal. LABORATORY DATA: Collected thus far has an initial white blood cell count of 11, improved today; hemoglobin in the 14 range yesterday and today despite diuresis, initially elevated potassium at 5.6; negative troponin on one determination; an elevated CK 8.4. Arterial blood gas as discussed. CT scan of the chest done today demonstrated significant emphysema, panlobular of a moderate degree and some thickened airways, some very small pulmonary nodules. IMPRESSION: 1. 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 2. Pulmonary hypertension, likely multifactorial hypoxemia and cardiac issues. 3. Significant gastroesophageal reflux disease with risk of aspiration and additional pulmonary compromise. Educated and discussed with the patient. 4. Ongoing tobacco use. 5. Elevated carboxyhemoglobin level. PLAN: Plan would be to agree with high flow oxygen to try and reduce carbon monoxide levels, gradual diuresis as able for dependent edema as blood pressure and heart rate will stand the therapy given his significant pulmonary vascular resistance. Recommend cardiology evaluation given his young age with right heart catheterization to determine the nature of his pulmonary hypertension and processes, with a plan. Will discuss. Thank you for the opportunity to participate in the care of this pleasant gentleman. DAKOTA:héctor Job ID: [id number] Doc ID: [id number] Severo Devine MD
[2018-08-17] MEDS: OLANZapine 5 MG TABLET PO SCH (20:18)
[2018-08-17] MEDS: FLUoxetine HCL 20 MG CAPSULE PO SCH (20:19)
[2018-08-17] MEDS: LEVOFLOXACIN 750 MG/150 ML BAG IV SCH (20:19)
[2018-08-17] MEDS: SENNOSIDES/DOCUSATE SODIUM 1 TAB TABLET PO SCH (20:19)
[2018-08-18] MEDS: IPRATROPIUM/ALBUTEROL 3 ML AMPUL.NEB NEB SCH ×4 (01:01→19:28)
[2018-08-18] MEDS: HYDROcodone/APAP 10/325MG TABLET PO PRN ×5 (04:10→20:10)
[2018-08-18] MEDS: 0.9 % SODIUM CHLORIDE 10 ML SYRINGE IV SCH ×3 (04:11→20:11)
[2018-08-18 06:38] LABS: Hematocrit 38.7 % (41.0-55.0); Hemoglobin 12.8 g/dL (13.5-16.5); Mean Cell Volume 98.5 fL (80.0-100.0); Mean Corpuscular HGB Conc 33.1 g/dL (31.0-36.0); Mean Platelet Volume 7.2 fL (7.4-10.4); Platelet Count 194 K/mcL (140-440); RBC 3.93 M/mcL (4.50-5.90); Red Cell Distribution Width 16.4 % (11.5-14.5); WBC 6.7 K/mcL (4.5-11.0)
[2018-08-18 07:11] LABS: ALT/SGPT 38 U/l (0-40); AST/SGOT 11 U/l (0-37); Albumin 3.5 gm/dL (3.2-5.2); Albumin/Globulin Ratio 1.8 (1.0-2.3); Alkaline Phosphatase 98 U/L (39-117); Bilirubin,Direct < 0.2 mg/dL (0.0-0.3); Bilirubin,Total 0.2 mg/dL (0.0-1.0); Blood Urea Nitrogen 22 mg/dl (8-23); Calcium 8.8 mg/dl (8.6-10.4); Carbon Dioxide 28 mmol/L (22-30); Chloride 94 mmol/L (96-108); Gamma Glutamyl Transpeptidase 29 U/L (8-61); Globulin 1.9 gm/dL (2.2-3.7); Glomerular Filtration Rate 78; Glucose 100 mg/dL (70-105); Lactate Dehydrogenase 235 U/L (94-250); Magnesium 1.9 mg/dL (1.6-2.5); Phosphorous 3.4 mg/dL (2.7-4.5); Potassium 4.8 mmol/L (3.3-5.1); Sodium 132 mmol/L (133-145); Triglycerides 161 mg/dl (<150); Uric Acid 5.1 mg/dL (2.5-8.0)
[2018-08-18] MEDS: OMEPRAZOLE 20 MG CAPSULE PO SCH ×2 (07:17→16:13)
[2018-08-18] MEDS: BUDESONIDE 0.5 MG/2 ML AMPUL.NEB NEB SCH ×2 (07:28→19:29)
[2018-08-18 07:57] LABS: Anisocytosis 1+ (NONE SEEN); Lymphocytes % 12 % (15-49); Monocytes % (Manual) 7 % (1-12); Platelet Estimate NORMAL (NORMAL); RBC Morphology ABNORM (NORMAL); Segmented Neutrophils % 81 % (38-78)
--- NOTE | 2018-08-18 08:09 | XRay Report ---
HISTORY: COPD with shortness of breath FINDINGS: Patient has interstitial fibrosis and COPD. The diaphragms are not abnormally flattened. No acute infiltrate is seen. On the CT scan performed yesterday several small peripheral lung nodules were identified. They cannot be clearly seen on the chest x-ray. The heart size is normal. IMPRESSION: pulmonary fibrosis and COPD with no significant change Interpreted and Authenticated by: Jose Gross 08/18/18
[2018-08-18] MEDS: amLODIPine 5 MG TABLET PO SCH (08:43)
[2018-08-18] MEDS: ISOSORBIDE MONONITRATE 60 MG TAB.XL.24H PO SCH (08:43)
[2018-08-18] MEDS: LISINOPRIL 20 MG TABLET PO SCH (08:43)
[2018-08-18] MEDS: MULTIVIT,THER IRON,CA,FA & MIN 1 TABLET PO SCH (08:43)
[2018-08-18] MEDS: HEPARIN 5,000 UNIT/ML VIAL SQ SCH ×2 (08:43→20:11)
[2018-08-18] MEDS: DOCUSATE SODIUM 100 MG CAPSULE PO SCH ×2 (08:43→20:11)
[2018-08-18] MEDS: THIAMINE 100 MG TABLET PO SCH (08:43)
[2018-08-18] MEDS: METOPROLOL SUCCINATE 25 MG TAB.XL.24H PO SCH (08:43)
--- NOTE | 2018-08-18 10:43 | Internal Med Progress Note ---
Medical - PN: Subj Patient information: Note initiated : 08/18/18 at 10:41 am Service Date, if different from initiated Date: [] Patient: Sam Dexter 68 y/o M admitted on 08/16/18 for SOB . Chief Complaint: [] Interval history: Mr. Dexter is a 68 year old M history of COPD/hypertension and coronary artery disease at age 33 who presents to 2 week onset of worsening shortness of breath, gradual weight gain, orthopnea and productive cough along with wheezing. Patient denied associated chest pain or changes in medication or NSAID intake. He tried to work with the symptoms only to get progressively worse with what started as dyspnea on maximal exertion dramatically progressed to dyspnea at rest along with orthopnea. In process patient endorses to gaining over 20 pounds weight mostly in the lower extremity and torso. He also continues to smoke a pack a day. He denies paroxysmal nocturnal dyspnea but endorses to non-bloody cough, denies chest palpitation, tearing headache, photophobia or fever. Denies sick contact. He lives alone and continues to smoke a pack a day. Denies alcohol or substance abuse. He denies previous hospitalization except for myocardial infarction is 33. Follows up with primary care physician Dr. Vega 08/17-patient clinically improving. Improved hypoxia. Off noninvasive ventilation currently on 4 L oxygen. However echocardiograms revealed severe hypertension with cor pulmonale. Tachycardic at 130s. Diuresis is discontinued as cardiac output preload dependent. Atenolol discontinued and switched to metoprolol. CT scan reveals emphysematous change. Neurology consulted for evaluation of severe pulmonary hypertension. Patient will require right heart c atheterization/cardiology follow-up for better optimization of pulmonary hypertension. At this time patient will be continued on oxygen. Continue levofloxacin for COPD exacerbation along with bronchodilators. Discussed echo finding along with treatment plan with patient. 08/18-patient continues to be on high flow oxygen. Persistent shortness of breath. Gentle diuresis is ongoing. Per pulmonology patient require right heart catheterization for evaluation of exact cause of pulmonary hypertension which is likely multifactorial at this time. Case management to help [facility] and [facility] follow-up. Continue current treatment. No overnight telemetry events or fever chills. Nonproductive persistent cough - Constitutional Vitals: Vital Signs Temp Pulse Resp BP Pulse Ox 96.4 F L 72 16 97/68 97 08/18/18 06:49 08/18/18 07:30 08/18/18 08:00 08/18/18 06:49 08/18/18 08:00 Period Temp Pulse Resp BP Sys/Nuñez Pulse Ox Last 24 Hr 96.3 F-98.2 F 72-116 14-24 74-102/56-70 90-97 Intake and Output 08/17/18 08/18/18 08/18/18 21:59 05:59 13:59 Intake Total 820 240 390 Output Total 400 100 Balance 820 -160 290 Weight 180 lb 8 oz Intake & Output: Intake & Output 08/17/18 08/18/18 08/18/18 21:59 05:59 13:59 Intake Total 820 240 390 Output Total 400 100 Balance 820 -160 290 Weight 180 lb 8 oz Intake: IV 150 Oral 820 240 240 Output: Void Amount 400 100 Other: Meal Breakfast Percent of Meal Consumed 100% Feeding Ability Independent Urine Appearance Clear Urine Color Light Meenu Bright Yellow Stool Size Moderate Stool Color Brown Stool Consistency Formed # Bowel Movements 1 General appearance: moderate distress (shortness of breath) Exam: Anxious and labored Diffuse rhonchus breath sounds Abdomen soft Persistent lymphedema but improving Medical - PN: Obj Da - Labs CBC & Chem 7: 08/18/18 03:30 08/18/18 03:30 Labs: Abnormal Lab Results 08/18/18 08/18/18 08/17/18 03:30 03:30 03:45 RBC 3.93 L Hgb 12.8 L Hct 38.7 L RDW 16.4 H MPV 7.2 L Gran % Lymph % (Auto) Gran # Lymph # (Auto) Seg Neutrophils % 81 H Lymphocytes % 12 L RBC Morphology Abnorm A Anisocytosis 1+ A ABG pO2 ABG O2 Saturation ABG Base Excess ABG Methemoglobin VBG Lactic Acid Carboxyhemoglobin POC Sodium Sodium 132 L POC Potassium Potassium Chloride 94 L Carbon Dioxide Glucose 168 H POC Glucose POC WB Ioniz Calcium Magnesium 1.5 L ALT 48 H Lactate Dehydrogenase 257 H CK-MB (CK-2) NT-Pro-B Natriuret Pep Total Protein 5.4 L Globulin 1.9 L Triglycerides 161 H Urine Protein Hyaline Casts 08/17/18 08/16/18 08/16/18 03:45 19:15 14:47 RBC 4.32 L Hgb Hct RDW 16.2 H MPV Gran % Lymph % (Auto) Gran # Lymph # (Auto) Seg Neutrophils % 91 H Lymphocytes % 6 L RBC Morphology Abnorm A Anisocytosis 1+ A ABG pO2 ABG O2 Saturation ABG Base Excess ABG Methemoglobin VBG Lactic Acid 2.2 H Carboxyhemoglobin POC Sodium Sodium POC Potassium Potassium Chloride Carbon Dioxide Glucose POC Glucose POC WB Ioniz Calcium Magnesium ALT Lactate Dehydrogenase CK-MB (CK-2) NT-Pro-B Natriuret Pep Total Protein Globulin Triglycerides Urine Protein 100 A Hyaline Casts 14 H 08/16/18 08/16/18 08/16/18 14:40 14:38 14:38 RBC 4.41 L Hgb Hct RDW 16.3 H MPV 7.1 L Gran % 83.5 H Lymph % (Auto) 9.5 L Gran # 9.2 H Lymph # (Auto) 1.0 L Seg Neutrophils % Lymphocytes % RBC Morphology Anisocytosis ABG pO2 69 L ABG O2 Saturation 80.3 L ABG Base Excess -3.0 L ABG Methemoglobin 0.3 L VBG Lactic Acid Carboxyhemoglobin 12.0 H POC Sodium 132 L Sodium POC Potassium 5.3 H Potassium 5.6 H Chloride Carbon Dioxide 20 L Glucose 139 H POC Glucose 137 H POC WB Ioniz Calcium 1.14 L Magnesium ALT 52 H Lactate Dehydrogenase CK-MB (CK-2) 8.4 H NT-Pro-B Natriuret Pep 2699.0 H Total Protein Globulin Triglycerides Urine Protein Hyaline Casts Meds: Medications Acetaminophen (Tylenol) 650 mg PO Q4-6HP PRN PRN Reason: PAIN/FEVER > 101 Hydrocodone Bitart/Acetaminophen ([place] 10/325mg) 1 tab PO Q4HP PRN PRN Reason: Pain Last Admin: 08/18/18 07:44 Dose: 1 tab Documented by: Albuterol/Ipratropium (Combivent) 1 puff INH Q4HP PRN PRN Reason: Shortness Of Breath Albuterol/Ipratropium (Duoneb) 3 ml NEB Q6HRT [facility] Last Admin: 08/18/18 07:27 Dose: 3 ml Documented by: Amlodipine Besylate (Norvasc) 5 mg PO DAILY [facility] Last Admin: 08/18/18 08:43 Dose: 5 mg Documented by: Budesonide (Pulmicort) 0.5 mg NEB Q12 [facility] Last Admin: 08/18/18 07:28 Dose: 0.5 mg Documented by: Docusate Sodium (Colace) 100 mg PO BID [facility] Last Admin: 08/18/18 08:43 Dose: 100 mg Documented by: Fluoxetine HCl (Prozac) 40 mg PO HS [facility] Last Admin: 08/17/18 20:19 Dose: 40 mg Documented by: Furosemide (Lasix) 40 mg PO BIDD [facility] Heparin Sodium (Porcine) (Heparin) 5,000 unit SQ Q12 [facility] Last Admin: 08/18/18 08:43 Dose: 5,000 unit Documented by: Levofloxacin (Levaquin) 750 mg in 150 mls @ 100 mls/hr IV Q24H [facility]; Protocol Last Infusion: 08/18/18 07:17 Dose: Infused Documented by: Magnesium Sulfate (Magnesium Sulfate) 2 gm in 50 mls @ 50 mls/hr IV UD PRN PRN Reason: MG = or < 1.7 Last Infusion: 08/17/18 08:45 Dose: Infused Documented by: Acetaminophen (Ofirmev) 1,000 mg in 100 mls @ 200 mls/hr IV Q6HP PRN PRN Reason: PAIN/FEVER > 101 Iron Carb/Multivit/[place]/Folic Acid (Multivitamin W/Minerals) 1 tab PO DAILY [facility] Last Admin: 08/18/18 08:43 Dose: 1 tab Documented by: Isosorbide Mononitrate (Imdur) 120 mg PO DAILY [facility] Last Admin: 08/18/18 08:43 Dose: 120 mg Documented by: Lisinopril (Zestril) 20 mg PO DAILY [facility] Last Admin: 08/18/18 08:43 Dose: 20 mg Documented by: Metoprolol Succinate (Toprol Xl) 25 mg PO DAILY [facility] Last Admin: 08/18/18 08:43 Dose: 25 mg Documented by: Olanzapine (Zyprexa) 10 mg PO HS [facility] Last Admin: 08/17/18 20:18 Dose: 10 mg Documented by: Omeprazole (Prilosec) 20 mg PO BIDAC [facility] Last Admin: 08/18/18 07:17 Dose: 20 mg Documented by: Ondansetron HCl (Zofran) 4 mg IV Q4-6HP PRN PRN Reason: Nausea And Vomiting Potassium Chloride (Klor-Con) 40 meq PO DAILYP PRN PRN Reason: K+ < 3.5 Senna/Docusate Sodium (Senna Plus Tablet) 1 tab PO HS [facility] Last Admin: 08/17/18 20:19 Dose: Not Given Documented by: Sodium Chloride (Saline Flush) 10 ml IV Q8 [facility] Last Admin: 08/18/18 04:11 Dose: 10 ml Documented by: Thiamine HCl (Vitamin B1) 100 mg PO DAILY [facility] Last Admin: 08/18/18 08:43 Dose: 100 mg Documented by: - ABG Interpretation ABG results: 08/16/18 14:40 ABG pH 7.37 ABG pCO2 39.5 ABG pO2 69 L ABG HCO3 22.1 ABG Total CO2 23.3 ABG O2 Saturation 80.3 L ABG Base Excess -3.0 L ABG Methemoglobin 0.3 L Medical - PN: A/P - Time Spent With Patient Total time spent is greater than 50% in coordination of care (as documented) at patient's floor/unit and/or counseling patient: 25 - 35 minutes (1) CHF (congestive heart failure) Status: Acute Assessment and plan: * Severe pulmonary hypertension with cor pulmonale-pulmonology recommends outpatient follow-up with cardiology however multifactorial etiology. Recommends continues oxygen/smoking cessation.will need outpatient cardiology follow-up/right heart catheterization case management [facility] * COPD exacerbation-continuous steroid/bronchodilators/smoking cessation counseling/oxygen * Acute Hypoxic respiratory failure - currently off noninvasive ventilation. On 45% FiO2 high flow. Anticipate discharge on 24-hour oxygen. * Hypertension continue lisinopril/metoprolol/amlodipine * History of CAD continue isosorbide/ESTELA inhibitor/extended release beta shawn * Anxiety disorder continue fluoxetine/olanzapine * GERD continue PPI * DJD continue home dose hydrocodone * Full code * Prophylaxis heparin Plan * High flow oxygen * Oral diuretics * Bronchodilators steroids * 24 7 oxygen * Cardiology follow-up for right heart catheterization/pulmonary hypertension evaluation * Smoking cessation counseling * Pre-existing medical condition management as above * Schedule follow-up with [facility] cardiology Current Visit: Yes (2) Hypoxia Status: Acute Current Visit: Yes Medical - PN: Qual - Stroke Symptom Onset Unknown: No - VTE Deep Vein Thrombosis/Pulmonary Embolism Present on Admission: No
[2018-08-18] MEDS: FUROSEMIDE 40 MG TABLET PO SCH ×2 (11:46→16:10)
[2018-08-18] MEDS: guaiFENesin 600 MG TAB.SR.12H PO PRN (11:46)
[2018-08-18] MEDS: LEVOFLOXACIN 750 MG/150 ML BAG IV SCH (16:13)
[2018-08-18] MEDS: OLANZapine 5 MG TABLET PO SCH (20:10)
[2018-08-18] MEDS: FLUoxetine HCL 20 MG CAPSULE PO SCH (20:10)
[2018-08-18] MEDS: SENNOSIDES/DOCUSATE SODIUM 1 TAB TABLET PO SCH (20:11)
[2018-08-19] MEDS: IPRATROPIUM/ALBUTEROL 3 ML AMPUL.NEB NEB SCH ×4 (00:54→19:18)
[2018-08-19] MEDS: HYDROcodone/APAP 10/325MG TABLET PO PRN ×4 (01:04→16:28)
[2018-08-19] MEDS: 0.9 % SODIUM CHLORIDE 10 ML SYRINGE IV SCH ×3 (05:15→20:23)
[2018-08-19 05:51] LABS: Hematocrit 37.8 % (41.0-55.0); Hemoglobin 12.5 g/dL (13.5-16.5); Mean Corpuscular HGB Conc 33.1 g/dL (31.0-36.0); Platelet Count 191 K/mcL (140-440); RBC 3.86 M/mcL (4.50-5.90); Red Cell Distribution Width 15.9 % (11.5-14.5); WBC 6.9 K/mcL (4.5-11.0)
[2018-08-19 06:07] LABS: ALT/SGPT 33 U/l (0-40); AST/SGOT 8 U/l (0-37); Albumin 3.3 gm/dL (3.2-5.2); Albumin/Globulin Ratio 1.7 (1.0-2.3); Alkaline Phosphatase 93 U/L (39-117); Bilirubin,Direct < 0.2 mg/dL (0.0-0.3); Bilirubin,Total 0.3 mg/dL (0.0-1.0); Blood Urea Nitrogen 21 mg/dl (8-23); Calcium 8.7 mg/dl (8.6-10.4); Carbon Dioxide 30 mmol/L (22-30); Chloride 95 mmol/L (96-108); Gamma Glutamyl Transpeptidase 29 U/L (8-61); Globulin 1.9 gm/dL (2.2-3.7); Glomerular Filtration Rate 78; Glucose 109 mg/dL (70-105); Lactate Dehydrogenase 207 U/L (94-250); Magnesium 1.8 mg/dL (1.6-2.5); Phosphorous 3.4 mg/dL (2.7-4.5); Potassium 4.9 mmol/L (3.3-5.1); Sodium 134 mmol/L (133-145); Triglycerides 202 mg/dl (<150); Uric Acid 5.2 mg/dL (2.5-8.0)
[2018-08-19] MEDS: OMEPRAZOLE 20 MG CAPSULE PO SCH ×2 (07:16→16:28)
[2018-08-19] MEDS: BUDESONIDE 0.5 MG/2 ML AMPUL.NEB NEB SCH ×2 (07:34→19:18)
[2018-08-19] MEDS: FUROSEMIDE 40 MG TABLET PO SCH ×2 (08:14→16:26)
[2018-08-19] MEDS: DOCUSATE SODIUM 100 MG CAPSULE PO SCH ×2 (09:07→20:23)
[2018-08-19] MEDS: ISOSORBIDE MONONITRATE 60 MG TAB.XL.24H PO SCH (09:07)
[2018-08-19] MEDS: THIAMINE 100 MG TABLET PO SCH (09:07)
[2018-08-19] MEDS: HEPARIN 5,000 UNIT/ML VIAL SQ SCH ×2 (09:07→20:23)
[2018-08-19] MEDS: METOPROLOL SUCCINATE 25 MG TAB.XL.24H PO SCH (09:07)
[2018-08-19] MEDS: LISINOPRIL 20 MG TABLET PO SCH (09:07)
[2018-08-19] MEDS: MULTIVIT,THER IRON,CA,FA & MIN 1 TABLET PO SCH (09:07)
[2018-08-19] MEDS: amLODIPine 5 MG TABLET PO SCH (09:07)
[2018-08-19] MEDS: LEVOFLOXACIN 750 MG/150 ML BAG IV SCH (09:08)
--- NOTE | 2018-08-19 10:13 | Internal Med Progress Note ---
Medical - PN: Subj Patient information: Note initiated : 08/19/18 at 10:09 am Service Date, if different from initiated Date: [] Patient: Sam Dexter a 68 y/o M admitted on 08/16/18 for SOB . Chief Complaint: [] Interval history: Mr. Dexter is a 68 year old M history of COPD/hypertension and coronary artery disease at age 33 who presents to 2 week onset of worsening shortness of breath, gradual weight gain, orthopnea and productive cough along with wheezing. Patient denied associated chest pain or changes in medication or NSAID intake. He tried to work with the symptoms only to get progressively worse with what started as dyspnea on maximal exertion dramatically progressed to dyspnea at rest along with orthopnea. In process patient endorses to gaining over 20 pounds weight mostly in the lower extremity and torso. He also continues to smoke a pack a day. He denies paroxysmal nocturnal dyspnea but endorses to non-bloody cough, denies chest palpitation, tearing headache, photophobia or fever. Denies sick contact. He lives alone and continues to smoke a pack a day. Denies alcohol or substance abuse. He denies previous hospitalization except for myocardial infarction is 33. Follows up with primary care physician Dr. Vega 08/17-patient clinically improving. Improved hypoxia. Off noninvasive ventilation currently on 4 L oxygen. However echocardiograms revealed severe hypertension with cor pulmonale. Tachycardic at 130s. Diuresis is discontinued as cardiac output preload dependent. Atenolol discontinued and switched to metoprolol. CT scan reveals emphysematous change. Neurology consulted for evaluation of severe pulmonary hypertension. Patient will require right heart c atheterization/cardiology follow-up for better optimization of pulmonary hypertension. At this time patient will be continued on oxygen. Continue levofloxacin for COPD exacerbation along with bronchodilators. Discussed echo finding along with treatment plan with patient. 08/18-patient continues to be on high flow oxygen. Persistent shortness of breath. Gentle diuresis is ongoing. Per pulmonology patient require right heart catheterization for evaluation of exact cause of pulmonary hypertension which is likely multifactorial at this time. Case management to help facilitate [facility] and [facility]ology follow-up. Continue current treatment. No overnight telemetry events or fever chills. Nonproductive persistent cough 08/19-patient continues to remain hypoxic on 40 L high flow oxygen. Persistent cough. No significant improvement since previous day. In the setting of persistent hypoxic respiratory failure patient with a candidate for transfer to tertiary Center for further evaluation including right heart. However case management and coordinating approval from [place] for the same. Patient made aware of labs, imaging, clinical status and possible transfer to tertiary Center. - Constitutional Vitals: Vital Signs Temp Pulse Resp BP Pulse Ox 97.2 F 89 18 114/81 99 08/19/18 08:00 08/19/18 07:37 08/19/18 08:00 08/19/18 08:00 08/19/18 08:00 Period Temp Pulse Resp BP Sys/Nuñez Pulse Ox Last 24 Hr 96.5 F-98.2 F 75-109 14-21 86-129/68-81 91-99 Intake and Output 08/18/18 08/19/18 08/19/18 21:59 05:59 13:59 Intake Total 3185 216 7952 Output Total 4064 762 1462 Balance -675 -405 -20 Weight 176 lb Intake & Output: Intake & Output 08/18/18 08/19/18 08/19/18 21:59 05:59 13:59 Intake Total 8552 042 5626 Output Total 9397 180 0217 Balance -675 -405 -20 Weight 176 lb Intake: IV 150 Oral 526 229 1539 Output: Void Amount 1627 408 3733 Other: Meal Breakfast Percent of Meal Consumed 100% Urine Appearance Clear Clear Clear Urine Color Pale Pale Straw Urine Odor Normal Normal General appearance: no acute distress Exam: Persistent shortness of breath on 40 L high flow Minimal anxiety Bilateral rhonchi Abdomen soft Lymphedema much improved Medical - PN: Obj Da - Labs CBC & Chem 7: 08/19/18 03:35 08/19/18 03:35 Labs: Abnormal Lab Results 08/19/18 08/19/18 08/18/18 03:35 03:35 03:30 RBC 3.86 L Hgb 12.5 L Hct 37.8 L RDW 15.9 H MPV 7.0 L Gran % Lymph % (Auto) Gran # Lymph # (Auto) Seg Neutrophils % Lymphocytes % RBC Morphology Anisocytosis ABG pO2 ABG O2 Saturation ABG Base Excess ABG Methemoglobin VBG Lactic Acid Carboxyhemoglobin POC Sodium Sodium 132 L POC Potassium Potassium Chloride 95 L 94 L Carbon Dioxide Glucose 109 H POC Glucose POC WB Ioniz Calcium Magnesium ALT Lactate Dehydrogenase CK-MB (CK-2) NT-Pro-B Natriuret Pep Total Protein 5.2 L 5.4 L Globulin 1.9 L 1.9 L Triglycerides 202 H 161 H Urine Protein Hyaline Casts 08/18/18 08/17/18 08/17/18 03:30 03:45 03:45 RBC 3.93 L 4.32 L Hgb 12.8 L Hct 38.7 L RDW 16.4 H 16.2 H MPV 7.2 L Gran % Lymph % (Auto) Gran # Lymph # (Auto) Seg Neutrophils % 81 H 91 H Lymphocytes % 12 L 6 L RBC Morphology Abnorm A Abnorm A Anisocytosis 1+ A 1+ A ABG pO2 ABG O2 Saturation ABG Base Excess ABG Methemoglobin VBG Lactic Acid Carboxyhemoglobin POC Sodium Sodium POC Potassium Potassium Chloride Carbon Dioxide Glucose 168 H POC Glucose POC WB Ioniz Calcium Magnesium 1.5 L ALT 48 H Lactate Dehydrogenase 257 H CK-MB (CK-2) NT-Pro-B Natriuret Pep Total Protein Globulin Triglycerides Urine Protein Hyaline Casts 08/16/18 08/16/18 08/16/18 19:15 14:47 14:40 RBC Hgb Hct RDW MPV Gran % Lymph % (Auto) Gran # Lymph # (Auto) Seg Neutrophils % Lymphocytes % RBC Morphology Anisocytosis ABG pO2 69 L ABG O2 Saturation 80.3 L ABG Base Excess -3.0 L ABG Methemoglobin 0.3 L VBG Lactic Acid 2.2 H Carboxyhemoglobin 12.0 H POC Sodium Sodium POC Potassium Potassium Chloride Carbon Dioxide Glucose POC Glucose POC WB Ioniz Calcium Magnesium ALT Lactate Dehydrogenase CK-MB (CK-2) NT-Pro-B Natriuret Pep Total Protein Globulin Triglycerides Urine Protein 100 A Hyaline Casts 14 H 08/16/18 08/16/18 14:38 14:38 RBC 4.41 L Hgb Hct RDW 16.3 H MPV 7.1 L Gran % 83.5 H Lymph % (Auto) 9.5 L Gran # 9.2 H Lymph # (Auto) 1.0 L Seg Neutrophils % Lymphocytes % RBC Morphology Anisocytosis ABG pO2 ABG O2 Saturation ABG Base Excess ABG Methemoglobin VBG Lactic Acid Carboxyhemoglobin POC Sodium 132 L Sodium POC Potassium 5.3 H Potassium 5.6 H Chloride Carbon Dioxide 20 L Glucose 139 H POC Glucose 137 H POC WB Ioniz Calcium 1.14 L Magnesium ALT 52 H Lactate Dehydrogenase CK-MB (CK-2) 8.4 H NT-Pro-B Natriuret Pep 2699.0 H Total Protein Globulin Triglycerides Urine Protein Hyaline Casts Meds: Medications Acetaminophen (Tylenol) 650 mg PO Q4-6HP PRN PRN Reason: PAIN/FEVER > 101 Hydrocodone Bitart/Acetaminophen ([place] 10/325mg) 1 tab PO Q4HP PRN PRN Reason: Pain Last Admin: 08/19/18 07:16 Dose: 1 tab Documented by: Albuterol/Ipratropium (Combivent) 1 puff INH Q4HP PRN PRN Reason: Shortness Of Breath Albuterol/Ipratropium (Duoneb) 3 ml NEB Q6HRT [facility] Last Admin: 08/19/18 07:34 Dose: 3 ml Documented by: Amlodipine Besylate (Norvasc) 5 mg PO DAILY [facility] Last Admin: 08/19/18 09:07 Dose: 5 mg Documented by: Budesonide (Pulmicort) 0.5 mg NEB Q12 [facility] Last Admin: 08/19/18 07:34 Dose: 0.5 mg Documented by: Docusate Sodium (Colace) 100 mg PO BID [facility] Last Admin: 08/19/18 09:07 Dose: 100 mg Documented by: Fluoxetine HCl (Prozac) 40 mg PO HS [facility] Last Admin: 08/18/18 20:10 Dose: 40 mg Documented by: Furosemide (Lasix) 40 mg PO BIDD [facility] Last Admin: 08/19/18 08:14 Dose: 40 mg Documented by: Guaifenesin (Mucinex) 600 mg PO BIDP PRN PRN Reason: Congestion Last Admin: 08/18/18 11:46 Dose: 600 mg Documented by: Heparin Sodium (Porcine) (Heparin) 5,000 unit SQ Q12 [facility] Last Admin: 08/19/18 09:07 Dose: 5,000 unit Documented by: Levofloxacin (Levaquin) 750 mg in 150 mls @ 100 mls/hr IV Q24H [facility]; Protocol Last Admin: 08/19/18 09:08 Dose: 100 mls/hr Documented by: Magnesium Sulfate (Magnesium Sulfate) 2 gm in 50 mls @ 50 mls/hr IV UD PRN PRN Reason: MG = or < 1.7 Last Infusion: 08/17/18 08:45 Dose: Infused Documented by: Acetaminophen (Ofirmev) 1,000 mg in 100 mls @ 200 mls/hr IV Q6HP PRN PRN Reason: PAIN/FEVER > 101 Iron Carb/Multivit/[place]/Folic Acid (Multivitamin W/Minerals) 1 tab PO DAILY [facility] Last Admin: 08/19/18 09:07 Dose: 1 tab Documented by: Isosorbide Mononitrate (Imdur) 120 mg PO DAILY [facility] Last Admin: 08/19/18 09:07 Dose: 120 mg Documented by: Lisinopril (Zestril) 20 mg PO DAILY [facility] Last Admin: 08/19/18 09:07 Dose: 20 mg Documented by: Metoprolol Succinate (Toprol Xl) 25 mg PO DAILY [facility] Last Admin: 08/19/18 09:07 Dose: 25 mg Documented by: Olanzapine (Zyprexa) 10 mg PO HS [facility] Last Admin: 08/18/18 20:10 Dose: 10 mg Documented by: Omeprazole (Prilosec) 20 mg PO BIDAC [facility] Last Admin: 08/19/18 07:16 Dose: 20 mg Documented by: Ondansetron HCl (Zofran) 4 mg IV Q4-6HP PRN PRN Reason: Nausea And Vomiting Potassium Chloride (Klor-Con) 40 meq PO DAILYP PRN PRN Reason: K+ < 3.5 Senna/Docusate Sodium (Senna Plus Tablet) 1 tab PO [facility] Last Admin: 08/18/18 20:11 Dose: Not Given Documented by: Sodium Chloride (Saline Flush) 10 ml IV Q8 [facility] Last Admin: 08/19/18 05:15 Dose: 10 ml Documented by: Thiamine HCl (Vitamin B1) 100 mg PO DAILY [facility] Last Admin: 08/19/18 09:07 Dose: 100 mg Documented by: - ABG Interpretation ABG results: 08/16/18 14:40 ABG pH 7.37 ABG pCO2 39.5 ABG pO2 69 L ABG HCO3 22.1 ABG Total CO2 23.3 ABG O2 Saturation 80.3 L ABG Base Excess -3.0 L ABG Methemoglobin 0.3 L Medical - PN: A/P - Time Spent With Patient Total time spent is greater than 50% in coordination of care (as documented) at patient's floor/unit and/or counseling patient: 25 - 35 minutes (1) CHF (congestive heart failure) Status: Acute Assessment and plan: * Acute Hypoxic respiratory failure -on high flow 40 L. Await approval from [place] for transfer to tertiary Center for further evaluation. * Severe pulmonary hypertension with COR Pulmonale-pulmonology recommends follow-up with cardiology however likely multifactorial etiology. Recommends continues oxygen/smoking cessation and gentle diuresis. Case management coordinating approval from [place] for cardiology follow-up/right heart catheterization. * COPD exacerbation-continuous steroid/bronchodilators/smoking cessation counseling/oxygen * Hypertension continue lisinopril/metoprolol/amlodipine * History of CAD continue isosorbide/ESTELA inhibitor/extended release beta shawn * Anxiety disorder continue fluoxetine/olanzapine * GERD continue PPI * DJD continue home dose hydrocodone * Full code * Prophylaxis heparin Plan * Continue High flow oxygen * Await approval from [place] for right heart catheterization/cardiology consult and transfer to tertiary Center * Oral diuretics * Bronchodilators /steroids * Pre-existing medical condition management as above Current Visit: Yes (2) Hypoxia Status: Acute Current Visit: Yes Medical - PN: Qual - Stroke Symptom Onset Unknown: No - VTE Deep Vein Thrombosis/Pulmonary Embolism Present on Admission: No
[2018-08-19 10:22] LABS: Band Neutrophils % 10 % (0-10); Eosinophils % (Manual) 3 % (0-7); Lymphocytes % 4 % (15-49); Monocytes % (Manual) 6 % (1-12); Platelet Estimate NORMAL (NORMAL); RBC Morphology NORMAL (NORMAL); Segmented Neutrophils % 77 % (38-78)
--- NOTE | 2018-08-19 13:15 | Internal Med Progress Note ---
Medical - PN: Subj Patient information: Note initiated : 08/19/18 at 1:05 pm Service Date, if different from initiated Date: [] Patient: Sam Dexter a 68 y/o M admitted on 08/16/18 for SOB . Chief Complaint: [] Interval history: Mr. Dexter is a 68 year old M history of COPD/hypertension and coronary artery disease at age 33 who presents to 2 week onset of worsening shortness of breath, gradual weight gain, orthopnea and productive cough along with wheezing. Patient denied associated chest pain or changes in medication or NSAID intake. He tried to work with the symptoms only to get progressively worse with what started as dyspnea on maximal exertion dramatically progressed to dyspnea at rest along with orthopnea. In process patient endorses to gaining over 20 pounds weight mostly in the lower extremity and torso. He also continues to smoke a pack a day. He denies paroxysmal nocturnal dyspnea but endorses to non-bloody cough, denies chest palpitation, tearing headache, photophobia or fever. Denies sick contact. He lives alone and continues to smoke a pack a day. Denies alcohol or substance abuse. He denies previous hospitalization except for myocardial infarction is 33. Follows up with primary care physician Dr. Vega 08/17-patient clinically improving. Improved hypoxia. Off noninvasive ventilation currently on 4 L oxygen. However echocardiograms revealed severe hypertension with cor pulmonale. Tachycardic at 130s. Diuresis is discontinued as cardiac output preload dependent. Atenolol discontinued and switched to metoprolol. CT scan reveals emphysematous change. Neurology consulted for evaluation of severe pulmonary hypertension. Patient will require right heart catheterization/cardiology follow-up for better optimization of pulmonary hypertension. At this time patient will be continued on oxygen. Continue levofloxacin for COPD exacerbation along with bronchodilators. Discussed echo finding along with treatment plan with patient. 08/18-patient continues to be on high flow oxygen. Persistent shortness of breath. Gentle diuresis is ongoing. Per pulmonology patient require right heart catheterization for evaluation of exact cause of pulmonary hypertension which is likely multifactorial at this time. [facility] management [facility] and [facility] follow-[facility]. Continue current treatment. No overnight telemetry events or fever chills. Nonproductive persistent cough 08/19-patient continues to remain hypoxic on 40 L high flow oxygen. Persistent cough. No significant improvement since previous day. In the setting of persistent hypoxic respiratory failure patient with a candidate for transfer to tertiary Center for further evaluation including right heart. However case management and coordinating approval from [place] for the same. Patient made aware of labs, imaging, clinical status and possible transfer to tertiary Center. 08/20 - Constitutional Vitals: Vital Signs Temp Pulse Resp BP Pulse Ox 97.7 F 89 21 87/64 95 08/19/18 12:00 08/19/18 07:37 08/19/18 12:00 08/19/18 12:00 08/19/18 12:00 Period Temp Pulse Resp BP Sys/Nuñez Pulse Ox Last 24 Hr 96.5 F-98.2 F 75-109 14-21 86-129/64-81 86-99 Intake and Output 08/18/18 08/19/18 08/19/18 21:59 05:59 13:59 Intake Total 2923 812 5014 Output Total 7475 652 5605 Balance -675 -405 180 Weight 79.832 kg Intake & Output: Intake & Output 08/18/18 08/19/18 08/19/18 21:59 05:59 13:59 Intake Total 3592 949 3684 Output Total 1363 952 6519 Balance -675 -405 180 Weight 79.832 kg Intake: IV 150 Oral 441 116 5464 Output: Void Amount 5569 414 9603 Other: Meal Lunch Percent of Meal Consumed 100% Feeding Ability Independent Urine Appearance Clear Clear Clear Urine Color Pale Pale Pale Urine Odor Normal Normal Exam: General: Alert, Awake, No acute Distress Eyes/N/T: EOMI, Head/Neck: neck supple, CV: RRR, No murmurs, Pulm: Abd: soft, nontender, +BS x4 Ext: no clubbing/cyanosis, b/l LE lymphedema Neuro: Alert, no focal deficits, moves all extremities, Skin: warm/dry Medical - PN: Obj Da - Labs CBC & Chem 7: 08/19/18 03:35 08/19/18 03:35 Labs: Abnormal Lab Results 08/19/18 08/19/18 08/18/18 03:35 03:35 03:30 RBC 3.86 L Hgb 12.5 L Hct 37.8 L RDW 15.9 H MPV 7.0 L Gran % Lymph % (Auto) Gran # Lymph # (Auto) Seg Neutrophils % Lymphocytes % 4 L RBC Morphology Anisocytosis ABG pO2 ABG O2 Saturation ABG Base Excess ABG Methemoglobin VBG Lactic Acid Carboxyhemoglobin POC Sodium Sodium 132 L POC Potassium Potassium Chloride 95 L 94 L Carbon Dioxide Glucose 109 H POC Glucose POC WB Ioniz Calcium Magnesium ALT Lactate Dehydrogenase CK-MB (CK-2) NT-Pro-B Natriuret Pep Total Protein 5.2 L 5.4 L Globulin 1.9 L 1.9 L Triglycerides 202 H 161 H Urine Protein Hyaline Casts 08/18/18 08/17/18 08/17/18 03:30 03:45 03:45 RBC 3.93 L 4.32 L Hgb 12.8 L Hct 38.7 L RDW 16.4 H 16.2 H MPV 7.2 L Gran % Lymph % (Auto) Gran # Lymph # (Auto) Seg Neutrophils % 81 H 91 H Lymphocytes % 12 L 6 L RBC Morphology Abnorm A Abnorm A Anisocytosis 1+ A 1+ A ABG pO2 ABG O2 Saturation ABG Base Excess ABG Methemoglobin VBG Lactic Acid Carboxyhemoglobin POC Sodium Sodium POC Potassium Potassium Chloride Carbon Dioxide Glucose 168 H POC Glucose POC WB Ioniz Calcium Magnesium 1.5 L ALT 48 H Lactate Dehydrogenase 257 H CK-MB (CK-2) NT-Pro-B Natriuret Pep Total Protein Globulin Triglycerides Urine Protein Hyaline Casts 08/16/18 08/16/18 08/16/18 19:15 14:47 14:40 RBC Hgb Hct RDW MPV Gran % Lymph % (Auto) Gran # Lymph # (Auto) Seg Neutrophils % Lymphocytes % RBC Morphology Anisocytosis ABG pO2 69 L ABG O2 Saturation 80.3 L ABG Base Excess -3.0 L ABG Methemoglobin 0.3 L VBG Lactic Acid 2.2 H Carboxyhemoglobin 12.0 H POC Sodium Sodium POC Potassium Potassium Chloride Carbon Dioxide Glucose POC Glucose POC WB Ioniz Calcium Magnesium ALT Lactate Dehydrogenase CK-MB (CK-2) NT-Pro-B Natriuret Pep Total Protein Globulin Triglycerides Urine Protein 100 A Hyaline Casts 14 H 08/16/18 08/16/18 14:38 14:38 RBC 4.41 L Hgb Hct RDW 16.3 H MPV 7.1 L Gran % 83.5 H Lymph % (Auto) 9.5 L Gran # 9.2 H Lymph # (Auto) 1.0 L Seg Neutrophils % Lymphocytes % RBC Morphology Anisocytosis ABG pO2 ABG O2 Saturation ABG Base Excess ABG Methemoglobin VBG Lactic Acid Carboxyhemoglobin POC Sodium 132 L Sodium POC Potassium 5.3 H Potassium 5.6 H Chloride Carbon Dioxide 20 L Glucose 139 H POC Glucose 137 H POC WB Ioniz Calcium 1.14 L Magnesium ALT 52 H Lactate Dehydrogenase CK-MB (CK-2) 8.4 H NT-Pro-B Natriuret Pep 2699.0 H Total Protein Globulin Triglycerides Urine Protein Hyaline Casts Meds: Medications Acetaminophen (Tylenol) 650 mg PO Q4-6HP PRN PRN Reason: PAIN/FEVER > 101 Hydrocodone Bitart/Acetaminophen ([place] 10/325mg) 1 tab PO Q4HP PRN PRN Reason: Pain Last Admin: 08/19/18 12:05 Dose: 1 tab Documented by: Albuterol/Ipratropium (Combivent) 1 puff INH Q4HP PRN PRN Reason: Shortness Of Breath Albuterol/Ipratropium (Duoneb) 3 ml NEB Q6HRT [facility] Last Admin: 08/19/18 13:05 Dose: 3 ml Documented by: Amlodipine Besylate (Norvasc) 5 mg PO DAILY [facility] Last Admin: 08/19/18 09:07 Dose: 5 mg Documented by: Budesonide (Pulmicort) 0.5 mg NEB Q12 [facility] Last Admin: 08/19/18 07:34 Dose: 0.5 mg Documented by: Docusate Sodium (Colace) 100 mg PO BID [facility] Last Admin: 08/19/18 09:07 Dose: 100 mg Documented by: Fluoxetine HCl (Prozac) 40 mg PO HS [facility] Last Admin: 08/18/18 20:10 Dose: 40 mg Documented by: Furosemide (Lasix) 40 mg PO BIDD [facility] Last Admin: 08/19/18 08:14 Dose: 40 mg Documented by: Guaifenesin (Mucinex) 600 mg PO BIDP PRN PRN Reason: Congestion Last Admin: 08/18/18 11:46 Dose: 600 mg Documented by: Heparin Sodium (Porcine) (Heparin) 5,000 unit SQ Q12 [facility] Last Admin: 08/19/18 09:07 Dose: 5,000 unit Documented by: Levofloxacin (Levaquin) 750 mg in 150 mls @ 100 mls/hr IV Q24H [facility]; Protocol Last Admin: 08/19/18 09:08 Dose: 100 mls/hr Documented by: Magnesium Sulfate (Magnesium Sulfate) 2 gm in 50 mls @ 50 mls/hr IV UD PRN PRN Reason: MG = or < 1.7 Last Infusion: 08/17/18 08:45 Dose: Infused Documented by: Acetaminophen (Ofirmev) 1,000 mg in 100 mls @ 200 mls/hr IV Q6HP PRN PRN Reason: PAIN/FEVER > 101 Iron Carb/Multivit/Drew/Folic Acid (Multivitamin W/Minerals) 1 tab PO DAILY [facility] Last Admin: 08/19/18 09:07 Dose: 1 tab Documented by: Isosorbide Mononitrate (Imdur) 120 mg PO DAILY [facility] Last Admin: 08/19/18 09:07 Dose: 120 mg Documented by: Lisinopril (Zestril) 20 mg PO DAILY [facility] Last Admin: 08/19/18 09:07 Dose: 20 mg Documented by: Metoprolol Succinate (Toprol Xl) 25 mg PO DAILY [facility] Last Admin: 08/19/18 09:07 Dose: 25 mg Documented by: Olanzapine (Zyprexa) 10 mg PO HS [facility] Last Admin: 08/18/18 20:10 Dose: 10 mg Documented by: Omeprazole (Prilosec) 20 mg PO BIDAC [facility] Last Admin: 08/19/18 07:16 Dose: 20 mg Documented by: Ondansetron HCl (Zofran) 4 mg IV Q4-6HP PRN PRN Reason: Nausea And Vomiting Potassium Chloride (Klor-Con) 40 meq PO DAILYP PRN PRN Reason: K+ < 3.5 Senna/Docusate Sodium (Senna Plus Tablet) 1 tab PO HS [facility] Last Admin: 08/18/18 20:11 Dose: Not Given Documented by: Sodium Chloride (Saline Flush) 10 ml IV Q8 [facility] Last Admin: 08/19/18 05:15 Dose: 10 ml Documented by: Thiamine HCl (Vitamin B1) 100 mg PO DAILY [facility] Last Admin: 08/19/18 09:07 Dose: 100 mg Documented by: - ABG Interpretation ABG results: 08/16/18 14:40 ABG pH 7.37 ABG pCO2 39.5 ABG pO2 69 L ABG HCO3 22.1 ABG Total CO2 23.3 ABG O2 Saturation 80.3 L ABG Base Excess -3.0 L ABG Methemoglobin 0.3 L Medical - PN: A/P - Time Spent With Patient Total time spent is greater than 50% in coordination of care (as documented) at patient's floor/unit and/or counseling patient: - Narrative A/P Narrative: A: *Acute Hypoxic respiratory failure: -was on high flow 40 L. now on 5L NC at rest, desats to mid 80's with exertion *Severe pulmonary hypertension with COR Pulmonale: -PA pressure ~70 *COPD exacerbation: *Hypertension: *h/o CAD: *Anxiety: continue fluoxetine/olanzapine *GERD: continue PPI *DJD: home dose hydrocodone *tobacco abuse: Plan: -Continue High flow oxygen -Await approval from [place] for right heart catheterization/cardiology consult and transfer to tertiary Center -seen by Dr. Devine: recommends f/u with cardiology however likely multifactorial etiology. Recommends continues oxygen/smoking cessation and gentle diuresis. -Oral diuretics -continuous steroid/bronchodilators -continue lisinopril/metoprolol/amlodipine -continue isosorbide/ESTELA inhibitor/extended release beta shawn -Smoking cessation counseling -ppx: heparin full code Medical - PN: Qual - Stroke Symptom Onset Unknown: No - VTE Deep Vein Thrombosis/Pulmonary Embolism Present on Admission: No
[2018-08-19] MEDS: FLUoxetine HCL 20 MG CAPSULE PO SCH (20:23)
[2018-08-19] MEDS: OLANZapine 5 MG TABLET PO SCH (20:23)
[2018-08-19] MEDS: SENNOSIDES/DOCUSATE SODIUM 1 TAB TABLET PO SCH (20:23)
[2018-08-20] MEDS: IPRATROPIUM/ALBUTEROL 3 ML AMPUL.NEB NEB SCH ×4 (01:22→19:22)
[2018-08-20] MEDS: HYDROcodone/APAP 10/325MG TABLET PO PRN ×5 (03:26→21:12)
[2018-08-20 05:35] LABS: Hematocrit 40.4 % (41.0-55.0); Hemoglobin 13.1 g/dL (13.5-16.5); Mean Cell Volume 98.1 fL (80.0-100.0); Mean Corpuscular HGB Conc 32.5 g/dL (31.0-36.0); Mean Platelet Volume 6.9 fL (7.4-10.4); Platelet Count 191 K/mcL (140-440); RBC 4.12 M/mcL (4.50-5.90); Red Cell Distribution Width 16.3 % (11.5-14.5); WBC 6.3 K/mcL (4.5-11.0)
[2018-08-20 05:43] LABS: ALT/SGPT 32 U/l (0-40); AST/SGOT 10 U/l (0-37); Albumin 3.5 gm/dL (3.2-5.2); Albumin/Globulin Ratio 1.7 (1.0-2.3); Alkaline Phosphatase 96 U/L (39-117); Bilirubin,Direct < 0.2 mg/dL (0.0-0.3); Bilirubin,Total 0.7 mg/dL (0.0-1.0); Blood Urea Nitrogen 16 mg/dl (8-23); Carbon Dioxide 31 mmol/L (22-30); Chloride 91 mmol/L (96-108); Gamma Glutamyl Transpeptidase 36 U/L (8-61); Globulin 2.1 gm/dL (2.2-3.7); Glomerular Filtration Rate 78; Glucose 142 mg/dL (70-105); Lactate Dehydrogenase 207 U/L (94-250); Magnesium 1.8 mg/dL (1.6-2.5); Phosphorous 3.3 mg/dL (2.7-4.5); Potassium 4.1 mmol/L (3.3-5.1); Sodium 133 mmol/L (133-145); Triglycerides 177 mg/dl (<150); Uric Acid 4.7 mg/dL (2.5-8.0)
[2018-08-20] MEDS: 0.9 % SODIUM CHLORIDE 10 ML SYRINGE IV SCH ×3 (05:53→22:00)
[2018-08-20 06:55] LABS: Eosinophils % (Manual) 1 % (0-7); Lymphocytes % 17 % (15-49); Monocytes % (Manual) 9 % (1-12); Platelet Estimate NORMAL (NORMAL); Polychromasia OCC (NONE SEEN); RBC Morphology ABNORMAL (NORMAL); Segmented Neutrophils % 73 % (38-78)
[2018-08-20] MEDS: OMEPRAZOLE 20 MG CAPSULE PO SCH ×2 (07:03→16:58)
[2018-08-20] MEDS: guaiFENesin 600 MG TAB.SR.12H PO PRN ×2 (07:14→21:12)
[2018-08-20] MEDS: BENZOCAINE/MENTHOL 1 LOZENGE PO PRN ×3 (07:14→22:09)
[2018-08-20] MEDS: BUDESONIDE 0.5 MG/2 ML AMPUL.NEB NEB SCH ×2 (07:20→19:23)
[2018-08-20] MEDS ORDERED: methylPREDNISolone SOD SUCC 125 MG/2 ML VIAL IV ONE (07:45)
--- NOTE | 2018-08-20 07:49 | Internal Med Progress Note ---
Medical - PN: Subj Patient information: Note initiated : 08/20/18 at 7:40 am Service Date, if different from initiated Date: [] Patient: Sam Dexter a 68 y/o M admitted on 08/16/18 for SOB . Chief Complaint: [] Interval history: Mr. Dexter is a 68 year old M history of COPD/hypertension and coronary artery disease at age 33 who presents to 2 week onset of worsening shortness of breath, gradual weight gain, orthopnea and productive cough along with wheezing. Patient denied associated chest pain or changes in medication or NSAID intake. He tried to work with the symptoms only to get progressively worse with what started as dyspnea on maximal exertion dramatically progressed to dyspnea at rest along with orthopnea. In process patient endorses to gaining over 20 pounds weight mostly in the lower extremity and torso. He also continues to smoke a pack a day. He denies paroxysmal nocturnal dyspnea but endorses to non-bloody cough, denies chest palpitation, tearing headache, photophobia or fever. Denies sick contact. He lives alone and continues to smoke a pack a day. Denies alcohol or substance abuse. He denies previous hospitalization except for myocardial infarction is 33. Follows up with primary care physician Dr. Vega 08/17-patient clinically improving. Improved hypoxia. Off noninvasive ventilation currently on 4 L oxygen. However echocardiograms revealed severe hypertension with cor pulmonale. Tachycardic at 130s. Diuresis is discontinued as cardiac output preload dependent. Atenolol discontinued and switched to metoprolol. CT scan reveals emphysematous change. Neurology consulted for evaluation of severe pulmonary hypertension. Patient will require right heart catheterization/cardiology follow-up for better optimization of pulmonary hypertension. At this time patient will be continued on oxygen. Continue levofloxacin for COPD exacerbation along with bronchodilators. Discussed echo finding along with treatment plan with patient. 08/18-patient continues to be on high flow oxygen. Persistent shortness of breath. Gentle diuresis is ongoing. Per pulmonology patient require right heart catheterization for evaluation of exact cause of pulmonary hypertension which is likely multifactorial at this time. [facility] management [facility] and [facility] follow-up. Continue current treatment. No overnight telemetry events or fever chills. Nonproductive persistent cough 08/19-patient continues to remain hypoxic on 40 L high flow oxygen. Persistent cough. No significant improvement since previous day. In the setting of persistent hypoxic respiratory failure patient with a candidate for transfer to tertiary Center for further evaluation including right heart. However case management and coordinating approval from [place] for the same. Patient made aware of labs, imaging, clinical status and possible transfer to tertiary Center. 08/20 No overnight events. Sleeping okay. Cough is more dry now. Shortness of breath about the same as yesterday. Yesterday he required 8 L of oxygen while ambulating. Today required 6 L of oxygen while ambulating. He is currently on 4 L of oxygen at rest. Has a headache this morning Review of Systems: denies fever/chills/nausea/vomiting/abdominal pain/diarrhea. Otherwise see above. - Constitutional Vitals: Vital Signs Temp Pulse Resp BP Pulse Ox 98.2 F 83 16 113/70 95 08/20/18 04:00 08/20/18 07:20 08/20/18 07:20 08/20/18 04:00 08/20/18 07:20 Period Temp Pulse Resp BP Sys/Nuñez Pulse Ox Last 24 Hr 96.6 F-98.2 F 78-94 16-22 87-114/57-81 86-99 Intake and Output 08/19/18 08/20/18 08/20/18 21:59 05:59 13:59 Intake Total 1080 120 360 Output Total 2900 1100 Balance -1820 -980 360 Weight 78.018 kg Intake & Output: Intake & Output 08/19/18 08/20/18 08/20/18 21:59 05:59 13:59 Intake Total 1080 120 360 Output Total 2900 1100 Balance -1820 -980 360 Weight 78.018 kg Intake: Oral 1080 120 360 Output: Void Amount 2900 1100 Other: Meal Dinner Percent of Meal Consumed 100% Feeding Ability Independent Urine Appearance Clear Clear Urine Color Pale Pale Urine Odor Normal Normal Exam: General: Alert, Awake, No acute Distress Eyes/N/T: EOMI, Head/Neck: neck supple, CV: RRR, No murmurs, Pulm: Mild bilateral rhonchi, mild wheezing bilaterally Abd: soft, nontender, +BS x4 Ext: no clubbing/cyanosis, b/l LE lymphedema 1+ Neuro: Alert, no focal deficits, moves all extremities, Skin: warm/dry Medical - PN: Obj Da - Labs CBC & Chem 7: 08/20/18 03:30 08/20/18 03:30 Labs: Abnormal Lab Results 08/20/18 08/20/18 08/19/18 03:30 03:30 03:35 RBC 4.12 L Hgb 13.1 L Hct 40.4 L RDW 16.3 H MPV 6.9 L Seg Neutrophils % Lymphocytes % RBC Morphology Polychromasia Occ A Anisocytosis Sodium Chloride 91 L 95 L Carbon Dioxide 31 H Glucose 142 H 109 H Total Protein 5.6 L 5.2 L Globulin 2.1 L 1.9 L Triglycerides 177 H 202 H 08/19/18 08/18/18 08/18/18 03:35 03:30 03:30 RBC 3.86 L 3.93 L Hgb 12.5 L 12.8 L Hct 37.8 L 38.7 L RDW 15.9 H 16.4 H MPV 7.0 L 7.2 L Seg Neutrophils % 81 H Lymphocytes % 4 L 12 L RBC Morphology Abnorm A Polychromasia Anisocytosis 1+ A Sodium 132 L Chloride 94 L Carbon Dioxide Glucose Total Protein 5.4 L Globulin 1.9 L Triglycerides 161 H 08/17/18 03:45 RBC Hgb Hct RDW MPV Seg Neutrophils % 91 H Lymphocytes % 6 L RBC Morphology Abnorm A Polychromasia Anisocytosis 1+ A Sodium Chloride Carbon Dioxide Glucose Total Protein Globulin Triglycerides Meds: Medications Acetaminophen (Tylenol) 650 mg PO Q4-6HP PRN PRN Reason: PAIN/FEVER > 101 Hydrocodone Bitart/Acetaminophen ([place] 10/325mg) 1 tab PO Q4HP PRN PRN Reason: Pain Last Admin: 08/20/18 07:14 Dose: 1 tab Documented by: Albuterol/Ipratropium (Combivent) 1 puff INH Q4HP PRN PRN Reason: Shortness Of Breath Albuterol/Ipratropium (Duoneb) 3 ml NEB Q6HRT [facility] Last Admin: 08/20/18 07:20 Dose: 3 ml Documented by: Amlodipine Besylate (Norvasc) 5 mg PO DAILY [facility] Last Admin: 08/19/18 09:07 Dose: 5 mg Documented by: Budesonide (Pulmicort) 0.5 mg NEB Q12 [facility] Last Admin: 08/20/18 07:20 Dose: 0.5 mg Documented by: Docusate Sodium (Colace) 100 mg PO BID [facility] Last Admin: 08/19/18 20:23 Dose: Not Given Documented by: Fluoxetine HCl (Prozac) 40 mg PO HS [facility] Last Admin: 08/19/18 20:23 Dose: 40 mg Documented by: Furosemide (Lasix) 40 mg PO BIDD [facility] Last Admin: 08/19/18 16:26 Dose: 40 mg Documented by: Guaifenesin (Mucinex) 600 mg PO BIDP PRN PRN Reason: Congestion Last Admin: 08/20/18 07:14 Dose: 600 mg Documented by: Heparin Sodium (Porcine) (Heparin) 5,000 unit SQ Q12 [facility] Last Admin: 08/19/18 20:23 Dose: 5,000 unit Documented by: Levofloxacin (Levaquin) 750 mg in 150 mls @ 100 mls/hr IV Q24H [facility]; Protocol Last Infusion: 08/19/18 11:00 Dose: Infused Documented by: Magnesium Sulfate (Magnesium Sulfate) 2 gm in 50 mls @ 50 mls/hr IV UD PRN PRN Reason: MG = or < 1.7 Last Infusion: 08/17/18 08:45 Dose: Infused Documented by: Acetaminophen (Ofirmev) 1,000 mg in 100 mls @ 200 mls/hr IV Q6HP PRN PRN Reason: PAIN/FEVER > 101 Iron Carb/Multivit/Extrusion Die Template Maker/Folic Acid (Multivitamin W/Minerals) 1 tab PO DAILY [facility] Last Admin: 08/19/18 09:07 Dose: 1 tab Documented by: Isosorbide Mononitrate (Imdur) 120 mg PO DAILY [facility] Last Admin: 08/19/18 09:07 Dose: 120 mg Documented by: Lisinopril (Zestril) 20 mg PO DAILY [facility] Last Admin: 08/19/18 09:07 Dose: 20 mg Documented by: Metoprolol Succinate (Toprol Xl) 25 mg PO DAILY [facility] Last Admin: 08/19/18 09:07 Dose: 25 mg Documented by: Olanzapine (Zyprexa) 10 mg PO HS [facility] Last Admin: 08/19/18 20:23 Dose: 10 mg Documented by: Omeprazole (Prilosec) 20 mg PO BIDAC [facility] Last Admin: 08/20/18 07:03 Dose: 20 mg Documented by: Ondansetron HCl (Zofran) 4 mg IV Q4-6HP PRN PRN Reason: Nausea And Vomiting Potassium Chloride (Klor-Con) 40 meq PO DAILYP PRN PRN Reason: K+ < 3.5 Senna/Docusate Sodium (Senna Plus Tablet) 1 tab PO HS [facility] Last Admin: 08/19/18 20:23 Dose: Not Given Documented by: Sodium Chloride (Saline Flush) 10 ml IV Q8 [facility] Last Admin: 08/20/18 05:53 Dose: 10 ml Documented by: Thiamine HCl (Vitamin B1) 100 mg PO DAILY [facility] Last Admin: 08/19/18 09:07 Dose: 100 mg Documented by: Throat Lozenges (Cepacol) 1 lozenge PO PRN PRN PRN Reason: Sore Throat Last Admin: 08/20/18 07:14 Dose: 1 lozenge Documented by: - ABG Interpretation ABG results: 08/16/18 14:40 ABG pH 7.37 ABG pCO2 39.5 ABG pO2 69 L ABG HCO3 22.1 ABG Total CO2 23.3 ABG O2 Saturation 80.3 L ABG Base Excess -3.0 L ABG Methemoglobin 0.3 L Medical - PN: A/P - Time Spent With Patient Total time spent is greater than 50% in coordination of care (as documented) at patient's floor/unit and/or counseling patient: - Narrative A/P Narrative: A: *Acute Hypoxic respiratory failure: -was on high flow 40 L. now on 5L NC at rest sats mid 90's, desats to mid 80's with exertion *Severe pulmonary hypertension with COR Pulmonale: -PA pressure ~70 *COPD exacerbation: *Hypertension: bp low normal here *h/o CAD: *Anxiety: continue fluoxetine/olanzapine *GERD: continue PPI *DJD: home dose hydrocodone *tobacco abuse: Plan: -Continue wean oxygen, IS/[place] -Await approval from [place] for right heart catheterization/cardiology consult and transfer to tertiary Center -seen by Dr. Devine: recommends f/u with cardiology however likely multifactorial etiology. Recommends continues oxygen/smoking cessation and gentle diuresis. -Oral diuretics -continuous steroid/bronchodilators -continue isosorbide/ESTELA inhibitor(decrease)/extended release beta shawn/ norv asc d/c -Smoking cessation counseling -ppx: heparin full code Medical - PN: Qual - Stroke Symptom Onset Unknown: No - VTE Deep Vein Thrombosis/Pulmonary Embolism Present on Admission: No
[2018-08-20] MEDS: FUROSEMIDE 40 MG TABLET PO SCH ×2 (08:13→16:26)
[2018-08-20] MEDS: LEVOFLOXACIN 750 MG/150 ML BAG IV SCH (09:31)
[2018-08-20] MEDS: HEPARIN 5,000 UNIT/ML VIAL SQ SCH ×2 (09:48→21:11)
[2018-08-20] MEDS: LISINOPRIL 20 MG TABLET PO SCH (09:49)
[2018-08-20] MEDS: ISOSORBIDE MONONITRATE 60 MG TAB.XL.24H PO SCH (09:49)
[2018-08-20] MEDS: THIAMINE 100 MG TABLET PO SCH (09:49)
[2018-08-20] MEDS: MULTIVIT,THER IRON,CA,FA & MIN 1 TABLET PO SCH (09:49)
[2018-08-20] MEDS: DOCUSATE SODIUM 100 MG CAPSULE PO SCH ×2 (09:49→21:14)
[2018-08-20] MEDS: METOPROLOL SUCCINATE 25 MG TAB.XL.24H PO SCH (09:49)
[2018-08-20] MEDS: FLUoxetine HCL 20 MG CAPSULE PO SCH (21:13)
[2018-08-20] MEDS: OLANZapine 5 MG TABLET PO SCH (21:13)
[2018-08-20] MEDS: SENNOSIDES/DOCUSATE SODIUM 1 TAB TABLET PO SCH (21:13)
[2018-08-21] MEDS: HYDROcodone/APAP 10/325MG TABLET PO PRN ×4 (00:33→17:04)
[2018-08-21] MEDS: IPRATROPIUM/ALBUTEROL 3 ML AMPUL.NEB NEB SCH ×4 (00:34→18:36)
[2018-08-21] MEDS: 0.9 % SODIUM CHLORIDE 10 ML SYRINGE IV SCH ×3 (05:03→21:17)
[2018-08-21] MEDS: OMEPRAZOLE 20 MG CAPSULE PO SCH ×3 (05:06→17:03)
[2018-08-21 06:02] LABS: ALT/SGPT 31 U/l (0-40); AST/SGOT 10 U/l (0-37); Albumin 3.7 gm/dL (3.2-5.2); Albumin/Globulin Ratio 1.7 (1.0-2.3); Alkaline Phosphatase 96 U/L (39-117); Bilirubin,Direct < 0.2 mg/dL (0.0-0.3); Bilirubin,Total 0.5 mg/dL (0.0-1.0); Blood Urea Nitrogen 19 mg/dl (8-23); Calcium 9.4 mg/dl (8.6-10.4); Carbon Dioxide 30 mmol/L (22-30); Chloride 94 mmol/L (96-108); Gamma Glutamyl Transpeptidase 33 U/L (8-61); Globulin 2.2 gm/dL (2.2-3.7); Glomerular Filtration Rate 89; Glucose 107 mg/dL (70-105); Lactate Dehydrogenase 219 U/L (94-250); Magnesium 2.1 mg/dL (1.6-2.5); Phosphorous 3.4 mg/dL (2.7-4.5); Potassium 4.1 mmol/L (3.3-5.1); Sodium 136 mmol/L (133-145); Triglycerides 165 mg/dl (<150); Uric Acid 4.4 mg/dL (2.5-8.0)
[2018-08-21] MEDS: BUDESONIDE 0.5 MG/2 ML AMPUL.NEB NEB SCH ×2 (07:38→18:36)
--- NOTE | 2018-08-21 07:57 | Internal Med Progress Note ---
Medical - PN: Subj Patient information: Note initiated : 08/21/18 at 7:55 am Service Date, if different from initiated Date: [] Patient: Sam Dexter a 68 y/o M admitted on 08/16/18 for SOB . Chief Complaint: [] Interval history: Mr. Dexter is a 68 year old M history of COPD/hypertension and coronary artery disease at age 33 who presents to 2 week onset of worsening shortness of breath, gradual weight gain, orthopnea and productive cough along with wheezing. Patient denied associated chest pain or changes in medication or NSAID intake. He tried to work with the symptoms only to get progressively worse with what started as dyspnea on maximal exertion dramatically progressed to dyspnea at rest along with orthopnea. In process patient endorses to gaining over 20 pounds weight mostly in the lower extremity and torso. He also continues to smoke a pack a day. He denies paroxysmal nocturnal dyspnea but endorses to non-bloody cough, denies chest palpitation, tearing headache, photophobia or fever. Denies sick contact. He lives alone and continues to smoke a pack a day. Denies alcohol or substance abuse. He denies previous hospitalization except for myocardial infarction is 33. Follows up with primary care physician Dr. Vega 08/17-patient clinically improving. Improved hypoxia. Off noninvasive ventilation currently on 4 L oxygen. However echocardiograms revealed severe hypertension with cor pulmonale. Tachycardic at 130s. Diuresis is discontinued as cardiac output preload dependent. Atenolol discontinued and switched to metoprolol. CT scan reveals emphysematous change. Neurology consulted for evaluation of severe pulmonary hypertension. Patient will require right heart catheterization/cardiology follow-up for better optimization of pulmonary hypertension. At this time patient will be continued on oxygen. Continue levofloxacin for COPD exacerbation along with bronchodilators. Discussed echo finding along with treatment plan with patient. 08/18-patient continues to be on high flow oxygen. Persistent shortness of breath. Gentle diuresis is ongoing. Per pulmonology patient require right heart catheterization for evaluation of exact cause of pulmonary hypertension which is likely multifactorial at this time. Case management to help [facility] and [facility] follow-up. Continue current treatment. No overnight telemetry events or fever chills. Nonproductive persistent cough 08/19-patient continues to remain hypoxic on 40 L high flow oxygen. Persistent cough. No significant improvement since previous day. In the setting of persistent hypoxic respiratory failure patient with a candidate for transfer to tertiary Center for further evaluation including right heart. However case management and coordinating approval from [place] for the same. Patient made aware of labs, imaging, clinical status and possible transfer to tertiary Center. 08/20 No overnight events. Sleeping okay. Cough is more dry now. Shortness of breath about the same as yesterday. Yesterday he required 8 L of oxygen while ambulating. Today required 6 L of oxygen while ambulating. He is currently on 4 L of oxygen at rest. Has a headache this morning 08/21 Has cough but is continued to be dry Review of Systems: denies fever/chills/nausea/vomiting/abdominal pain/diarrhea. Otherwise see above. - Constitutional Vitals: Vital Signs Temp Pulse Resp BP Pulse Ox 96.4 F L 70 18 119/75 94 08/21/18 06:23 08/21/18 07:38 08/21/18 07:38 08/21/18 06:23 08/21/18 07:38 Period Temp Pulse Resp BP Sys/Nuñez Pulse Ox Last 24 Hr 96.4 F-98.5 F 70-119 16-24 89-119/62-76 91-97 Intake and Output 08/20/18 08/21/18 08/21/18 21:59 05:59 13:59 Intake Total 870 687 480 Output Total 1600 500 900 Balance -730 187 -420 Weight 75.342 kg Intake & Output: Intake & Output 08/20/18 08/21/18 08/21/18 21:59 05:59 13:59 Intake Total 870 687 480 Output Total 1600 500 900 Balance -730 187 -420 Weight 75.342 kg Intake: IV 150 Oral 720 687 480 Output: Void Amount 1600 500 900 Other: Meal Dinner Percent of Meal Consumed 100% Feeding Ability Independent Urine Appearance Clear Urine Color Bright Yellow Urine Odor Normal Exam: General: Alert, Awake, No acute Distress Eyes/N/T: EOMI, Head/Neck: neck supple, CV: RRR, No murmurs, Pulm: Mild bilateral rhonchi, mild wheezing bilaterally Abd: soft, nontender, +BS x4 Ext: no clubbing/cyanosis, b/l LE lymphedema 1+ Neuro: Alert, no focal deficits, moves all extremities, Skin: warm/dry Medical - PN: Obj Da - Labs CBC & Chem 7: 08/20/18 03:30 08/21/18 03:35 Labs: Abnormal Lab Results 08/21/18 08/20/18 08/20/18 03:35 03:30 03:30 RBC 4.12 L Hgb 13.1 L Hct 40.4 L RDW 16.3 H MPV 6.9 L Seg Neutrophils % Lymphocytes % RBC Morphology Polychromasia Occ A Anisocytosis Chloride 94 L 91 L Carbon Dioxide 31 H Glucose 107 H 142 H Total Protein 5.6 L Globulin 2.1 L Triglycerides 165 H 177 H 08/19/18 08/19/18 08/18/18 03:35 03:35 03:30 RBC 3.86 L Hgb 12.5 L Hct 37.8 L RDW 15.9 H MPV 7.0 L Seg Neutrophils % 81 H Lymphocytes % 4 L 12 L RBC Morphology Abnorm A Polychromasia Anisocytosis 1+ A Chloride 95 L Carbon Dioxide Glucose 109 H Total Protein 5.2 L Globulin 1.9 L Triglycerides 202 H Meds: Medications Acetaminophen (Tylenol) 650 mg PO Q4-6HP PRN PRN Reason: PAIN/FEVER > 101 Hydrocodone Bitart/Acetaminophen ([place] 10/325mg) 1 tab PO Q4HP PRN PRN Reason: Pain Last Admin: 08/21/18 05:02 Dose: 1 tab Documented by: Albuterol/Ipratropium (Combivent) 1 puff INH Q4HP PRN PRN Reason: Shortness Of Breath Albuterol/Ipratropium (Duoneb) 3 ml NEB Q6HRT [facility] Last Admin: 08/21/18 07:38 Dose: 3 ml Documented by: Budesonide (Pulmicort) 0.5 mg NEB Q12 [facility] Last Admin: 08/21/18 07:38 Dose: 0.5 mg Documented by: Docusate Sodium (Colace) 100 mg PO BID [facility] Last Admin: 08/20/18 21:14 Dose: Not Given Documented by: Fluoxetine HCl (Prozac) 40 mg PO HS [facility] Last Admin: 08/20/18 21:13 Dose: 40 mg Documented by: Furosemide (Lasix) 40 mg PO BIDD [facility] Last Admin: 08/20/18 16:26 Dose: 40 mg Documented by: Guaifenesin (Mucinex) 600 mg PO BIDP PRN PRN Reason: Congestion Last Admin: 08/20/18 21:12 Dose: 600 mg Documented by: Heparin Sodium (Porcine) (Heparin) 5,000 unit SQ Q12 [facility] Last Admin: 08/20/18 21:11 Dose: 5,000 unit Documented by: Levofloxacin (Levaquin) 750 mg in 150 mls @ 100 mls/hr IV Q24H [facility]; Protocol Last Infusion: 08/20/18 21:14 Dose: Infused Documented by: Magnesium Sulfate (Magnesium Sulfate) 2 gm in 50 mls @ 50 mls/hr IV UD PRN PRN Reason: MG = or < 1.7 Last Infusion: 08/17/18 08:45 Dose: Infused Documented by: Acetaminophen (Ofirmev) 1,000 mg in 100 mls @ 200 mls/hr IV Q6HP PRN PRN Reason: PAIN/FEVER > 101 Iron Carb/Multivit/[place]/Folic Acid (Multivitamin W/Minerals) 1 tab PO DAILY [facility] Last Admin: 08/20/18 09:49 Dose: 1 tab Documented by: Isosorbide Mononitrate (Imdur) 120 mg PO DAILY [facility] Last Admin: 08/20/18 09:49 Dose: 120 mg Documented by: Lisinopril (Zestril) 10 mg PO DAILY [facility] Last Admin: 08/20/18 09:49 Dose: 10 mg Documented by: Metoprolol Succinate (Toprol Xl) 25 mg PO DAILY [facility] Last Admin: 08/20/18 09:49 Dose: 25 mg Documented by: Olanzapine (Zyprexa) 10 mg PO HS [facility] Last Admin: 08/20/18 21:13 Dose: 10 mg Documented by: Omeprazole (Prilosec) 20 mg PO BIDAC [facility] Last Admin: 08/21/18 07:09 Dose: Not Given Documented by: Ondansetron HCl (Zofran) 4 mg IV Q4-6HP PRN PRN Reason: Nausea And Vomiting Potassium Chloride (Klor-Con) 40 meq PO DAILYP PRN PRN Reason: K+ < 3.5 Senna/Docusate Sodium (Senna Plus Tablet) 1 tab PO [facility] Last Admin: 08/20/18 21:13 Dose: Not Given Documented by: Sodium Chloride (Saline Flush) 10 ml IV Q8 [facility] Last Admin: 08/21/18 05:03 Dose: 10 ml Documented by: Thiamine HCl (Vitamin B1) 100 mg PO DAILY [facility] Last Admin: 08/20/18 09:49 Dose: 100 mg Documented by: Throat Lozenges (Cepacol) 1 lozenge PO PRN PRN PRN Reason: Sore Throat Last Admin: 08/20/18 22:09 Dose: 1 lozenge Documented by: - ABG Interpretation ABG results: 08/16/18 14:40 ABG pH 7.37 ABG pCO2 39.5 ABG pO2 69 L ABG HCO3 22.1 ABG Total CO2 23.3 ABG O2 Saturation 80.3 L ABG Base Excess -3.0 L ABG Methemoglobin 0.3 L Medical - PN: A/P - Time Spent With Patient Total time spent is greater than 50% in coordination of care (as documented) at patient's floor/unit and/or counseling patient: - Narrative A/P Narrative: A: *Acute Hypoxic respiratory failure: -was on high flow 40 L initially -now on 3.5L NC at rest sats 94 this morning. walked in [place] on 6L and maintained at 86%. *Severe pulmonary hypertension with COR Pulmonale: -PA pressure ~70 *COPD exacerbation: *Hypertension: on bb/imdure/norvasc/lisinopril -bp low initially, better now after decreasing meds *h/o CAD: on BB/imdur. Intolerant of ASA, is on statin *Anxiety: continue fluoxetine/olanzapine *GERD: continue PPI *DJD: home dose hydrocodone *tobacco abuse: Plan: -Continue wean oxygen, IS/Acapella -Await approval from [place] for right heart catheterization/cardiology consult and transfer to tertiary Center -seen by Dr. Devine: recommends f/u with cardiology however likely multifactorial etiology. Recommends continues oxygen/smoking cessation and gentle diuresis. -Oral diuretics -continuous steroid/bronchodilators -continue isosorbide/ESTELA inhibitor(decreased)/extended release beta shawn/ norvasc (d/c'd) -cont statin -Smoking cessation counseling -ppx: heparin full code Medical - PN: Qual - Stroke Symptom Onset Unknown: No - VTE Deep Vein Thrombosis/Pulmonary Embolism Present on Admission: No
[2018-08-21] MEDS: HEPARIN 5,000 UNIT/ML VIAL SQ SCH ×2 (09:11→21:17)
[2018-08-21] MEDS: ISOSORBIDE MONONITRATE 60 MG TAB.XL.24H PO SCH (09:11)
[2018-08-21] MEDS: methylPREDNISolone SOD SUCC 40 MG/ML VIAL IV SCH ×2 (09:11→21:17)
[2018-08-21] MEDS: METOPROLOL SUCCINATE 25 MG TAB.XL.24H PO SCH (09:11)
[2018-08-21] MEDS: DOCUSATE SODIUM 100 MG CAPSULE PO SCH ×2 (09:12→21:18)
[2018-08-21] MEDS: THIAMINE 100 MG TABLET PO SCH (09:12)
[2018-08-21] MEDS: MULTIVIT,THER IRON,CA,FA & MIN 1 TABLET PO SCH (09:12)
[2018-08-21] MEDS: FUROSEMIDE 40 MG TABLET PO SCH ×2 (09:12→16:06)
[2018-08-21] MEDS: LISINOPRIL 20 MG TABLET PO SCH (09:12)
[2018-08-21] MEDS: LEVOFLOXACIN 750 MG/150 ML BAG IV SCH (10:11)
[2018-08-21] MEDS ORDERED: ATORVASTATIN 20 MG TABLET PO ONE (12:00)
[2018-08-21] MEDS: guaiFENesin 600 MG TAB.SR.12H PO PRN (13:19)
--- NOTE | 2018-08-21 14:29 | Discharge Summary ---
Medical - DS: Prov Patient information: Note initiated : 08/21/18 at 2:25 pm Service Date, if different from initiated Date: [] Patient: Sam Dexter 68 y/o M admitted on 08/16/18 for SOB . Chief Complaint: [] Date of admission: 08/16/18 19:03 Discharge date: 08/22/18 Primary care physician: Papo Vega Consults: 08/16/18 Consult to Physician [CONS] Stat Comment: Consulting Provider: Joseph Mcclure Reason For Exam: Physician to Consult 08/17/18 12:15 Consult to Physician [CONS] Routine Comment: PAHTN Consulting Provider: Severo Devine Reason For Exam: Physician to Consult Medical - DS: Meds - Discharge Medications Prescriptions: Fluticasone/Salmeterol [Advair 250-50 Diskus] 1 puff INH BID #1 inhaler Lisinopril [Zestril] 2.5 mg PO DAILY #30 tab predniSONE [Prednisone] 40 mg PO DAILY #1 tab Active and Home Medications: Home Medications Alprostadil [Edex] 40 mcg IC PRN PRN 08/16/18 [History Confirmed 08/16/18 Last Taken Unknown] Atenolol [Tenormin] 10 mg PO DAILY 08/16/18 [History Confirmed 08/16/18 Last Taken Unknown] FLUoxetine HCL [Prozac] 40 mg PO HS 08/16/18 [History Confirmed 08/17/18 Last Taken Unknown] HYDROcodone/APAP 10/325MG [[place] 10-325Mg] 1 tab PO Q4H PRN 08/16/18 [History Confirmed 08/16/18 Last Taken Unknown] Ipratropium/Albuterol Sulfate [Combivent] 1 puff INH PRN PRN 08/16/18 [History Confirmed 08/16/18 Last Taken Unknown] Isosorbide Mononitrate [Isosorbide Mononitrate ER] 120 mg PO DAILY 08/16/18 [History Confirmed 08/16/18 Last Taken Unknown] Lisinopril [Zestril] 20 mg PO DAILY 08/16/18 [History Confirmed 08/16/18 Last Taken Unknown] OLANZapine [Zyprexa] 10 mg PO HS 08/16/18 [History Confirmed 08/17/18 Last Taken Unknown] Omeprazole [PriLOSEC] 20 mg PO BIDAC 08/16/18 [History Confirmed 08/16/18 Last Taken Unknown] amLODIPine [Norvasc] 5 mg PO DAILY 08/16/18 [History Confirmed 08/16/18 Last Taken Unknown] Pravastatin Sodium [Pravachol] 20 mg PO HS 08/21/18 [History Confirmed 08/21/18 Last Taken Unknown] Home Medications Alprostadil [Edex] 40 mcg IC PRN PRN 08/16/18 [History Confirmed 08/16/18 Last Taken Unknown] Atenolol [Tenormin] 10 mg PO DAILY 08/16/18 [History Confirmed 08/16/18 Last Taken Unknown] FLUoxetine HCL [Prozac] 40 mg PO HS 08/16/18 [History Confirmed 08/17/18 Last Taken Unknown] HYDROcodone/APAP 10/325MG [[place] 10-325Mg] 1 tab PO Q4H PRN 08/16/18 [History Confirmed 08/16/18 Last Taken Unknown] Ipratropium/Albuterol Sulfate [Combivent] 1 puff INH PRN PRN 08/16/18 [History Confirmed 08/16/18 Last Taken Unknown] Isosorbide Mononitrate [Isosorbide Mononitrate ER] 120 mg PO DAILY 08/16/18 [History Confirmed 08/16/18 Last Taken Unknown] OLANZapine [Zyprexa] 10 mg PO HS 08/16/18 [History Confirmed 08/17/18 Last Taken Unknown] Omeprazole [Prilosec] 20 mg PO BIDAC 08/16/18 [History Confirmed 08/16/18 Last Taken Unknown] Fluticasone/Salmeterol [Advair 250-50 Diskus] 1 puff INH BID #1 inhaler 08/21/18 [Rx Last Taken Unknown] Pravastatin Sodium [Pravachol] 20 mg PO HS 08/21/18 [History Confirmed 08/21/18 Last Taken Unknown] predniSONE [Prednisone] 40 mg PO DAILY #1 tab 08/21/18 [Rx Last Taken Unknown] Lisinopril [Zestril] 2.5 mg PO DAILY #30 tab 08/22/18 [Rx Last Taken Unknown] Medical - DS: Hosp Hospital course: Mr. Dexter is a 68 year old M Mr. Dexter is a 68 year old M history of COPD/hypertension and coronary artery disease at age 33 who presents to 2 week onset of worsening shortness of breath, gradual weight gain, orthopnea and productive cough along with wheezing. Patient denied associated chest pain or changes in medication or NSAID intake. He tried to work with the symptoms only to get progressively worse with what started as dyspnea on maximal exertion dramatically progressed to dyspnea at rest along with orthopnea. In process patient endorses to gaining over 20 pounds weight mostly in the lower extremity and torso. He also continues to smoke a pack a day. He denies paroxysmal nocturnal dyspnea but endorses to non-bloody cough, denies chest palpitation, tearing headache, photophobia or fever. Denies sick contact. He lives alone and continues to smoke a pack a day. Denies alcohol or substance abuse. He denies previous hospitalization except for myocardial infarction is 33. Follows up with primary care physician Dr. Vega 08/17-patient clinically improving. Improved hypoxia. Off noninvasive ventilation currently on 4 L oxygen. However echocardiograms revealed severe hypertension with cor pulmonale. Tachycardic at 130s. Diuresis is discontinued as cardiac output preload dependent. Atenolol discontinued and switched to metoprolol. CT scan reveals emphysematous change. Neurology consulted for evaluation of severe pulmonary hypertension. Patient will require right heart catheterization/cardiology follow-up for better optimization of pulmonary hypertension. At this time patient will be continued on oxygen. Continue levofloxacin for COPD exacerbation along with bronchodilators. Discussed echo finding along with treatment plan with patient. 08/18-patient continues to be on high flow oxygen. Persistent shortness of breath. Gentle diuresis is ongoing. Per pulmonology patient require right heart catheterization for evaluation of exact cause of pulmonary hypertension which is likely multifactorial at this time. Case management to help facilitate outpatient follow-up with [place] including cardiology and pulmonology follow-up. Continue current treatment. No overnight telemetry events or fever chills. No nproductive persistent cough 08/19-patient continues to remain hypoxic on 40 L high flow oxygen. Persistent cough. No significant improvement since previous day. In the setting of persistent hypoxic respiratory failure patient with a candidate for transfer to tertiary Center for further evaluation including right heart. However case management and coordinating [facility] Patient made aware of labs, imaging, clinical status and possible transfer to tertiary Center. 08/20 No overnight events. Sleeping okay. Cough is more dry now. Shortness of breath about the same as yesterday. Yesterday he required 8 L of oxygen while ambulating. Today required 6 L of oxygen while ambulating. He is currently on 4 L of oxygen at rest. Has a headache this morning 6/2 Has cough but is continued to be dry. Down to 3.5 L o2 at rest, needs more with exertion. 6/3 Continues to feel little bit better every day. Does have continued dry cough. Shortness of breath slowly improving. Mild headache. Is down to 2.5L nasal cannula at rest. Patient continues to improve. He is maintaining above 90% while ambulating on 5L and only needs several liters while at rest. Stable for discharge with close follow-up with cardiology and pulmonology. Discharge diagnosis: Acute hypoxic respiratory failure severe pulmonary hypertension COPD exacer Secondary discharge diagnosis: Hypertension CAD anxiety GERD tobacco abuse - Time Spent with Patient Total time spent providing and/or coordinating discharge services: Greater than 30 minutes Medical - DS: Exam - Constitutional Vitals: Vital Signs Temp Pulse Pulse Resp BP BP Pulse Ox 08/21/18 13:53 73 18 08/21/18 12:00 97.2 F 90 22 87/60 92 08/21/18 07:38 70 18 94 08/21/18 06:47 94 08/21/18 06:23 96.4 F L 20 119/75 94 08/21/18 00:15 98.4 F 93 H 24 H 101/66 92 08/21/18 00:00 98.4 F 119 H 24 H 101/66 93 08/20/18 20:00 97.8 F 99 H 99 H 16 104/74 104/74 93 08/20/18 19:28 98 H 24 H 08/20/18 16:00 98.5 F 86 20 114/76 94 Intake and Output 08/21/18 08/21/18 08/21/18 05:59 13:59 21:59 Intake Total 687 1200 Output Total 500 1400 Balance 187 -200 Intake: Oral 687 1200 Output: Void Amount 500 1400 Other: Meal Lunch Percent of Meal Consumed 100% Feeding Ability Independent Urine Appearance Clear Urine Color Bright Yellow Urine Odor Normal Medical - DS: Data Labs on day of discharge: Labs from last 24 hours 08/21/18 03:35 Sodium 136 Potassium 4.1 Chloride 94 L Carbon Dioxide 30 Anion Gap 12.0 BUN 19 Creatinine 0.9 GFR Calculation 89 Glucose 107 H Uric Acid 4.4 Calcium 9.4 Phosphorus 3.4 Magnesium 2.1 Total Bilirubin 0.5 Direct Bilirubin < 0.2 GGT 33 AST 10 ALT 31 Alkaline Phosphatase 96 Lactate Dehydrogenase 219 Total Protein 5.9 Albumin 3.7 Globulin 2.2 Albumin/Globulin Ratio 1.7 Triglycerides 165 H Preliminary micro results at discharge 08/16/18 14:47 Blood Culture - Preliminary Blood 08/16/18 14:53 Blood Culture - Preliminary Blood Medical - DS: A/P - Patient/Caregiver Discharge Instructions Activity: increase activity as tolerated Diet: Cardiac Additional Instructions: Follow-up with Dr. Devine--A referral has been sent to their office Ref[facility] and further work-up of pulmonary hypertension as soon as possible--They will contact you for an appointment. Prescriptions: Fluticasone/Salmeterol [Advair 250-50 Diskus] 1 puff INH BID #1 inhaler Lisinopril [Zestril] 10 mg PO DAILY #10 tab predniSONE [Prednisone] 40 mg PO DAILY #1 tab - Follow up Plan Follow up with: Magen Shepherd MD [Physician] - (A referral has been sent to Dr. Shepherd's office (Cardiology) they will contact you to schedule an appointment. If you do not hear from them within a week please call ) Severo Devine MD [Physician] - (Dr. Devine's office will contact you after reviewing your hospital stay to schedule an appointment. If you do not hear from the within a week please call ) Papo Vega MD [Primary Care Provider] - 08/24/18 10:30 am Disposition: Home, Self-Care Prognosis: Fair Rehab Potential: Fair Overall status at discharge: patient is progressing back to baseline Medical - DS: Qual - VTE Deep Vein Thrombosis/Pulmonary Embolism Present on Admission: No
[2018-08-21] MEDS: FLUoxetine HCL 20 MG CAPSULE PO SCH (21:17)
[2018-08-21] MEDS: OLANZapine 5 MG TABLET PO SCH (21:17)
[2018-08-21] MEDS: SENNOSIDES/DOCUSATE SODIUM 1 TAB TABLET PO SCH (21:18)
[2018-08-22] MEDS: IPRATROPIUM/ALBUTEROL 3 ML AMPUL.NEB NEB SCH ×2 (01:15→07:30)
[2018-08-22] MEDS: HYDROcodone/APAP 10/325MG TABLET PO PRN ×3 (01:20→10:48)
[2018-08-22] MEDS: 0.9 % SODIUM CHLORIDE 10 ML SYRINGE IV SCH (05:39)
[2018-08-22] MEDS: guaiFENesin 600 MG TAB.SR.12H PO PRN (06:53)
[2018-08-22] MEDS: OMEPRAZOLE 20 MG CAPSULE PO SCH (06:53)
--- NOTE | 2018-08-22 07:05 | Internal Med Progress Note ---
Medical - PN: Subj Patient information: Note initiated : 08/22/18 at 7:02 am Service Date, if different from initiated Date: [] Patient: Sam Dexter a 68 y/o M admitted on 08/16/18 for SOB . Chief Complaint: [] Interval history: Mr. Dexter is a 68 year old M history of COPD/hypertension and coronary artery disease at age 33 who presents to 2 week onset of worsening shortness of breath, gradual weight gain, orthopnea and productive cough along with wheezing. Patient denied associated chest pain or changes in medication or NSAID intake. He tried to work with the symptoms only to get progressively worse with what started as dyspnea on maximal exertion dramatically progressed to dyspnea at rest along with orthopnea. In process patient endorses to gaining over 20 pounds weight mostly in the lower extremity and torso. He also continues to smoke a pack a day. He denies paroxysmal nocturnal dyspnea but endorses to non-bloody cough, denies chest palpitation, tearing headache, photophobia or fever. Denies sick contact. He lives alone and continues to smoke a pack a day. Denies alcohol or substance abuse. He denies previous hospitalization except for myocardial infarction is 33. Follows up with primary care physician Dr. Vega 08/17-patient clinically improving. Improved hypoxia. Off noninvasive ventilation currently on 4 L oxygen. However echocardiograms revealed severe hypertension with cor pulmonale. Tachycardic at 130s. Diuresis is discontinued as cardiac output preload dependent. Atenolol discontinued and switched to metoprolol. CT scan reveals emphysematous change. Neurology consulted for evaluation of severe pulmonary hypertension. Patient will require right heart catheterization/cardiology follow-up for better optimization of pulmonary hypertension. At this time patient will be continued on oxygen. Continue levofloxacin for COPD exacerbation along with bronchodilators. Discussed echo finding along with treatment plan with patient. 08/18-patient continues to be on high flow oxygen. Persistent shortness of breath. Gentle diuresis is ongoing. Per pulmonology patient require right heart catheterization for evaluation of exact cause of pulmonary hypertension which is likely multifactorial at this time. Case management to help [facility]. Continue current treatment. No overnight telemetry events or fever chills. Nonproductive persistent cough 08/19-patient continues to remain hypoxic on 40 L high flow oxygen. Persistent cough. No significant improvement since previous day. In the setting of persistent hypoxic respiratory failure patient with a candidate for transfer to tertiary Center for further evaluation including right heart. However case management and coordinating approval from [place] for the same. Patient made aware of labs, imaging, clinical status and possible transfer to tertiary Center. 08/20 No overnight events. Sleeping okay. Cough is more dry now. Shortness of breath about the same as yesterday. Yesterday he required 8 L of oxygen while ambulating. Today required 6 L of oxygen while ambulating. He is currently on 4 L of oxygen at rest. Has a headache this morning 08/21 Has cough but is continued to be dry. No other complaints. Absolutely does not want to be transferred to another facility, wants to be able to go home and then finish work-up outpatient. He is making progress with his oxygenation slowly. 08/22 Continues to feel little bit better every day. Does have continued dry cough. Shortness of breath slowly improving. Mild headache. Is down to 2.5L nasal cannula at rest. Review of Systems: denies fever/chills/nausea/vomiting/abdominal pain/diarrhea. Otherwise see above. - Constitutional Vitals: Vital Signs Temp Pulse Resp BP Pulse Ox 97.2 F 80 20 108/66 96 08/22/18 04:00 08/21/18 20:00 08/22/18 04:00 08/22/18 04:00 08/22/18 04:00 Period Temp Pulse Resp BP Sys/Nuñez Pulse Ox Last 24 Hr 97.2 F-100.2 F 70-90 18-22 87-111/60-72 90-96 Intake and Output 08/21/18 08/22/18 08/22/18 21:59 05:59 13:59 Intake Total 600 Output Total 1999 1899 Balance -1399 Weight 72.575 kg Intake & Output: Intake & Output 08/21/18 08/22/18 08/22/18 21:59 05:59 13:59 Intake Total 600 Output Total 1999 1899 Balance -1399 Weight 72.575 kg Intake: Oral 600 Output: Void Amount 1999 1899 Other: Urine Appearance Clear Urine Color Pale Urine Odor Normal Exam: General: Alert, Awake, No acute Distress Eyes/N/T: EOMI, Head/Neck: neck supple, CV: RRR, No murmurs, Pulm: Mild bilateral rhonchi/wheezing Abd: soft, nontender, +BS x4 Ext: no clubbing/cyanosis, b/l LE edema now trace, much improved Neuro: Alert, no focal deficits, moves all extremities, Skin: warm/dry Medical - PN: Obj Da - Labs CBC & Chem 7: 08/20/18 03:30 08/21/18 03:35 Labs: Abnormal Lab Results 08/21/18 08/20/18 08/20/18 03:35 03:30 03:30 RBC 4.12 L Hgb 13.1 L Hct 40.4 L RDW 16.3 H MPV 6.9 L Lymphocytes % Polychromasia Occ A Chloride 94 L 91 L Carbon Dioxide 31 H Glucose 107 H 142 H Total Protein 5.6 L Globulin 2.1 L Triglycerides 165 H 177 H 08/19/18 03:35 RBC Hgb Hct RDW MPV Lymphocytes % 4 L Polychromasia Chloride Carbon Dioxide Glucose Total Protein Globulin Triglycerides Meds: Medications Acetaminophen (Tylenol) 650 mg PO Q4-6HP PRN PRN Reason: PAIN/FEVER > 101 Hydrocodone Bitart/Acetaminophen ([place] 10/325mg) 1 tab PO Q4HP PRN PRN Reason: Pain Last Admin: 08/22/18 06:53 Dose: 1 tab Documented by: Albuterol/Ipratropium (Combivent) 1 puff INH Q4HP PRN PRN Reason: Shortness Of Breath Albuterol/Ipratropium (Duoneb) 3 ml NEB Q6HRT [facility] Last Admin: 08/22/18 01:15 Dose: 3 ml Documented by: Atorvastatin Calcium (Lipitor) 10 mg PO [facility] Budesonide (Pulmicort) 0.5 mg NEB Q12 [facility] Last Admin: 08/21/18 18:36 Dose: 0.5 mg Documented by: Docusate Sodium (Colace) 100 mg PO BID [facility] Last Admin: 08/21/18 21:18 Dose: 100 mg Documented by: Fluoxetine HCl (Prozac) 40 mg PO HS [facility] Last Admin: 08/21/18 21:17 Dose: 40 mg Documented by: Furosemide (Lasix) 40 mg PO BIDD [facility] Last Admin: 08/21/18 16:06 Dose: Not Given Documented by: Guaifenesin (Mucinex) 600 mg PO BIDP PRN PRN Reason: Congestion Last Admin: 08/22/18 06:53 Dose: 600 mg Documented by: Heparin Sodium (Porcine) (Heparin) 5,000 unit SQ Q12 [facility] Last Admin: 08/21/18 21:17 Dose: 5,000 unit Documented by: Levofloxacin (Levaquin) 750 mg in 150 mls @ 100 mls/hr IV Q24H [facility]; Protocol Last Infusion: 08/21/18 11:42 Dose: Infused Documented by: Magnesium Sulfate (Magnesium Sulfate) 2 gm in 50 mls @ 50 mls/hr IV UD PRN PRN Reason: MG = or < 1.7 Last Infusion: 08/17/18 08:45 Dose: Infused Documented by: Acetaminophen (Ofirmev) 1,000 mg in 100 mls @ 200 mls/hr IV Q6HP PRN PRN Reason: PAIN/FEVER > 101 Iron Carb/Multivit/Virgie/Folic Acid (Multivitamin W/Minerals) 1 tab PO DAILY [facility] Last Admin: 08/21/18 09:12 Dose: 1 tab Documented by: Isosorbide Mononitrate (Imdur) 120 mg PO DAILY [facility] Last Admin: 08/21/18 09:11 Dose: 120 mg Documented by: Methylprednisolone Sodium Succinate (Solu-Medrol) 40 mg IV Q12 [facility] Last Admin: 08/21/18 21:17 Dose: 40 mg Documented by: Metoprolol Succinate (Toprol Xl) 25 mg PO DAILY [facility] Last Admin: 08/21/18 09:11 Dose: 25 mg Documented by: Olanzapine (Zyprexa) 10 mg PO HS [facility] Last Admin: 08/21/18 21:17 Dose: 10 mg Documented by: Omeprazole (Prilosec) 20 mg PO BIDAC [facility] Last Admin: 08/22/18 06:53 Dose: 20 mg Documented by: Ondansetron HCl (Zofran) 4 mg IV Q4-6HP PRN PRN Reason: Nausea And Vomiting Potassium Chloride (Klor-Con) 40 meq PO DAILYP PRN PRN Reason: K+ < 3.5 Senna/Docusate Sodium (Senna Plus Tablet) 1 tab PO [facility] Last Admin: 08/21/18 21:18 Dose: 1 tab Documented by: Sodium Chloride (Saline Flush) 10 ml IV Q8 [facility] Last Admin: 08/22/18 05:39 Dose: 10 ml Documented by: Thiamine HCl (Vitamin B1) 100 mg PO DAILY [facility] Last Admin: 08/21/18 09:12 Dose: 100 mg Documented by: Throat Lozenges (Cepacol) 1 lozenge PO PRN PRN PRN Reason: Sore Throat Last Admin: 08/20/18 22:09 Dose: 1 lozenge Documented by: - ABG Interpretation ABG results: 08/16/18 14:40 ABG pH 7.37 ABG pCO2 39.5 ABG pO2 69 L ABG HCO3 22.1 ABG Total CO2 23.3 ABG O2 Saturation 80.3 L ABG Base Excess -3.0 L ABG Methemoglobin 0.3 L Medical - PN: A/P - Time Spent With Patient Total time spent is greater than 50% in coordination of care (as documented) at patient's floor/unit and/or counseling patient: - Narrative A/P Narrative: A: *Acute Hypoxic respiratory failure: -was on high flow 40 L initially -now on 2.5L NC at rest sats mid 90's *Severe pulmonary hypertension with COR Pulmonale: -PA pressure ~70 *COPD exacerbation: *Hypertension: on bb/imdure/norvasc/lisinopril -bp low initially, better now after decreasing meds *h/o CAD: on BB/imdur. Intolerant of ASA, is on statin *Anxiety: continue fluoxetine/olanzapine *GERD: continue PPI *DJD: home dose hydrocodone *tobacco abuse: Plan: -Continue wean oxygen, IS/Acapella -Await approval from [place] for right heart catheterization/cardiology consult and possible transfer to tertiary Center, however, he is now improving and likely can finish w/u with cardio outpt -seen by Dr. Devine: recommends f/u with cardiology however likely multifactorial etiology. Recommends continues oxygen/smoking cessation and gentle diuresis. -ambulate to determine if home oxygen adequate to keeps sats appropriate and when ok then will d/c home -Oral diuretics decreased -continuous steroid/bronchodilators -continue isosorbide/ESTELA inhibitor(decreased)/extended release beta shawn/ norvasc (d/c'd) -cont statin -Smoking cessation counseling -ppx: heparin full code Medical - PN: Qual - Stroke Symptom Onset Unknown: No - VTE Deep Vein Thrombosis/Pulmonary Embolism Present on Admission: No
[2018-08-22] MEDS: BUDESONIDE 0.5 MG/2 ML AMPUL.NEB NEB SCH (07:30)
[2018-08-22] MEDS: FUROSEMIDE 40 MG TABLET PO SCH (07:34)
[2018-08-22] MEDS ORDERED: FUROSEMIDE 40 MG TABLET PO SCH (09:00)
[2018-08-22] MEDS: METOPROLOL SUCCINATE 25 MG TAB.XL.24H PO SCH (09:10)
[2018-08-22] MEDS: ISOSORBIDE MONONITRATE 60 MG TAB.XL.24H PO SCH (09:10)
[2018-08-22] MEDS: HEPARIN 5,000 UNIT/ML VIAL SQ SCH (09:10)
[2018-08-22] MEDS: THIAMINE 100 MG TABLET PO SCH (09:10)
[2018-08-22] MEDS: DOCUSATE SODIUM 100 MG CAPSULE PO SCH (09:10)
[2018-08-22] MEDS: MULTIVIT,THER IRON,CA,FA & MIN 1 TABLET PO SCH (09:10)
[2018-08-22] MEDS: methylPREDNISolone SOD SUCC 40 MG/ML VIAL IV SCH (09:10)
[2018-08-22] MEDS: LEVOFLOXACIN 750 MG/150 ML BAG IV SCH (09:11)
[2018-08-22] MEDS ORDERED: predniSONE 20 MG TABLET PO SCH (17:30)
[2018-08-22] MEDS ORDERED: ATORVASTATIN 20 MG TABLET PO SCH (21:00)
== END 2018-08-22 12:20 | disposition home or self-care (01) | DRG 189 ==
LOC: ED 14:28 → ICU 19:03
PROVIDERS: ADMIT Internal Medicine; ATTEND Internal Medicine

== ENCOUNTER 2019-05-03 10:21 | Inpatient (IN) ==
[2019-05-03] MEDS ORDERED: IOPAMIDOL 100 ML BOTTLE IV ONE (10:22)
[2019-05-03] MEDS ORDERED: 0.9 % SODIUM CHLORIDE 1,000 ML IV ONE ×2 (10:36→12:14)
[2019-05-03] MEDS ORDERED: ONDANSETRON 4 MG/2 ML VIAL IV ONE (10:36)
[2019-05-03] MEDS ORDERED: VANCOMYCIN 1,000 MG in 0.9 % SODIUM CHLORIDE 250 ML IV ONE (10:40)
[2019-05-03] MEDS ORDERED: PIPERACILLIN SODIUM/TAZOBACTAM 3.375 GM in DEXTROSE 5% IN WATER 50 ML IV ONE (10:40)
--- NOTE | 2019-05-03 10:44 | Emergency Department Note ---
Weakness HPI - General Chief complaint: Weakness Stated complaint: Weakness, recent flu, low bp, sob Time Seen by Provider: 05/03/19 10:30 Source: patient, family Mode of arrival: wheelchair Limitations: no limitations - History of Present Illness HPI Narrative: 69-year-old male comes in for hypotension and hypoxia from his primary care provider's office, Dr. Vega. He had previously been admitted at [facility] for a week and was sent home 3 days ago on his home nasal cannula oxygen of 2 L. He has multiple comorbidities including CHF, COPD and a right lung mass. He continues to smoke occasionally. He was at [facility] with a CHF exacerbation as well as COPD, as well as human metapneumovirus. Anyways after being discharged home he was at Dr. Vega's office for follow-up and was sent over out of concern for pneumonia with sepsis. He is not complaining of fever but continues to have shortness of breath, hypoxia despite oxygen rylie atment, and hypotensive with profound weakness. He does have a history of CAD as well but has not had a stent placed in the past. I reviewed his records from [facility] including discharge summary imaging studies and ER note. I see that he does have a right middle lung collapse with hilar mass noted. Echocardiogram showed preserved left function but he does have diastolic dysfunction along with significant pulmonary hypertension likely secondary to his COPD - Related Data Home Medications Medication Instructions Recorded Confirmed Alprostadil [Edex] 40 mcg IC PRN PRN 08/16/18 02/24/19 FLUoxetine HCL [Prozac] 20 mg PO HS 08/16/18 05/03/19 HYDROcodone/APAP 10/325MG [[place] 1 tab PO Q4H PRN 08/16/18 05/03/19 10-325Mg] Ipratropium/Albuterol Sulfate 1 puff INH PRN PRN 08/16/18 05/03/19 [Combivent] Isosorbide Mononitrate [Isosorbide 60 mg PO DAILY 08/16/18 05/03/19 Mononitrate ER] Omeprazole [Prilosec] 20 mg PO DAILY 08/16/18 05/03/19 Pravastatin Sodium [Pravachol] 20 mg PO HS 08/21/18 05/03/19 atenolol 25 mg tablet 25 mg PO DAILY tab 02/24/19 05/03/19 quetiapine 50 mg tablet 50 mg PO BID 02/24/19 05/03/19 Docusate Sodium [Colace] 100 mg PO PRN PRN 05/03/19 05/03/19 Furosemide [Lasix] 40 mg PO DAILY 05/03/19 05/03/19 Lisinopril [Zestril] 2.5 mg PO DAILY 05/03/19 05/03/19 methylPREDNISolone [Medrol] 4 mg PO DAILY 05/03/19 05/03/19 Previous Rx's Medication Instructions Recorded budesonide-formoterol HFA 160 2 puff INHALATION BID #10.2 g 11/07/18 mcg-4.5 mcg/actuation aerosol inhaler Allergies Allergy/AdvReac Type Severity Reaction Status Date / Time ibuprofen Allergy Intermediate stomach Verified 05/03/19 10:22 upset naproxen Allergy Intermediate stomach Verified 05/03/19 10:22 upset metoprolol Allergy Unknown unknown Verified 05/03/19 10:22 Terazosin Allergy Unknown unknown Verified 05/03/19 10:22 aspirin AdvReac Mild Itching Verified 05/03/19 10:22 duloxetine AdvReac Mild Vomiting Verified 05/03/19 10:22 gabapentin AdvReac Mild Itching Verified 05/03/19 10:22 lovastatin AdvReac Mild Gastrointestinal Verified 05/03/19 10:22 Upset morphine [MORPHINE] AdvReac Mild Itching Verified 05/03/19 10:22 niacin [NIACIN] AdvReac Mild FLUSH Verified 05/03/19 10:22 oxycodone AdvReac Mild Itching Verified 05/03/19 10:22 simvastatin AdvReac Mild Gastrointestinal Verified 05/03/19 10:22 Upset Review of Systems All systems ED: reviewed and negative except as stated. Past Medical History - Past Medical History Attestation: Yes: The following information was validated with the patient. 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) use of opiate analgesic (Chronic) Cigarette smoker (Chronic) Hx of myocardial infarction (Chronic) CAD (coronary artery disease) (Chronic) COPD (chronic obstructive pulmonary disease) (Chronic) Pulmonary HTN (Chronic) Hypertension, essential (Chronic) Obesity (BMI 30.0-34.9) (Chronic) Gastroesophageal reflux disease (Chronic) Cough (Chronic) SOB (shortness of breath) (Chronic) CHF (congestive heart failure) (Resolved) Anasarca (Resolved) Interstitial lung disease (Chronic) Depression with anxiety (Chronic) Prostate cancer (Chronic) Fibromyalgia (Chronic) Heart failure (Chronic) Pulmonary hypertension (Chronic) Aspirated gastric contents in lower respiratory tract (Resolved) Hypoxia (Resolved) Past Surgical History (Last Reviewed 02/24/19 @ 10:33 by Severo Devine MD) S/P cholecystectomy (Acute) S/P lumbar discectomy (Acute) S/P lumbar fusion (Acute) Medical history: Denies: CVA Psychiatric history: Reports: anxiety, depression - Social History smoking status: Current every day smoker Alcohol use: Reports: None Drug use: Reports: none. Denies: marijuana Physical Exam Ill-appearing male grossly weak-he is afebrile but his blood pressure is low. Normocephalic atraumatic. Conjunctive are clear sclerae white nonicteric. No nasal discharge or congestion but he is wearing nasal cannula oxygen. Oropharynx is with dry buccal mucosa he does have dentures top and bottom. Neck is supple without lymphadenopathy or thyromegaly. Heart is regular rate and rhythm. No murmur appreciated. Lungs are with wheezes and rhonchi throughout all lung manning. He is hypoxic and requiring oxygen-84% here. Abdomen is soft nontender nondistended. No peritoneal signs or guarding. He does have a couple bruises on his belly from Lovenox injection over at [facility]. Trace edema bilaterally. He is alert and able answer questions appropriate Limitations: no limitations Course Vital Signs Temperature 97.8 F 05/03/19 10:22 Pulse Rate 78 05/03/19 10:22 Respiratory Rate 22 05/03/19 10:22 Blood Pressure 71/57 05/03/19 10:22 Pulse Oximetry (%) 99 05/03/19 10:22 Temperature 97.8 F 05/03/19 10:22 Pulse Rate 72 05/03/19 12:46 Respiratory Rate 14 05/03/19 12:46 Blood Pressure 101/56 05/03/19 12:46 Pulse Oximetry (%) 95 05/03/19 12:46 [facility] - Medical Records Medical records reviewed: Yes I reviewed the patient's medical records. From [facility] - Lab Data Lab results reviewed: Yes I reviewed the patient's lab results. Result diagrams: 05/03/19 10:45 05/03/19 10:44 Lab Results 05/03/19 05/03/19 05/03/19 Range/Units 10:44 10:45 10:45 WBC 11.6 H (4.50-11.00) K/mcL RBC 3.86 L (4.63-6.08) M/mcL Hgb 13.0 L (13.7-17.5) g/dL Hct 38.4 L (40.1-51.0) % POC Hct 38.0 L (41.0-55.0) % MCV 99.5 (80.0-100.0) fL MCH 33.7 (26.0-34.0) pg MCHC 33.9 (31.0-36.0) g/dL RDW 12.7 (11.5-14.5) % Plt Count 214 (140-440) K/mcL MPV 9.7 (7.4-10.4) fL Gran % 83.9 H (38.0-78.0) % Lymph % (Auto) 7.5 L (15.5-49.0) % Dundy % (Auto) 7.7 (1.0-12.0) % Eos % (Auto) 0.5 (0.0-7.0) % Baso % (Auto) 0.4 (0.0-2.0) % Gran # 9.76 H (1.80-8.00) K/mcL Lymph # (Auto) 0.87 L (1.50-4.80) K/mcL Dundy # (Auto) 0.90 (0.10-0.90) K/mcL Eos # (Auto) 0.06 (0.00-0.70) K/mcL Baso # (Auto) 0.05 (0.00-0.30) K/mcL VBG Lactic Acid 1.3 (0.5-2.0) mmol/L POC Sodium 137 (133-145) mmol/L Sodium 136 (133-145) mmol/L POC Potassium 3.7 (3.3-5.1) mmol/L Potassium 3.8 (3.3-5.1) mmol/L POC Chloride 98 (96-108) mmol/L Chloride 97 (96-108) mmol/L Carbon Dioxide 29 (22-30) mmol/L POC Total CO2 32 H (22-30) mmol/L Anion Gap 10.0 (8-16) POC BUN 18 (8-23) mg/dl BUN 17 (8-23) mg/dl Creatinine 1.0 (0.7-1.2) mg/dl POC Creatinine 0.9 (0.7-1.2) mg/dl GFR Calculation 78 Glucose 120 H (70-105) mg/dL POC Glucose 119 H (70-105) mg/dL Calcium 8.8 (8.6-10.4) mg/dl POC WB Ioniz Calcium 1.11 L (1.16-1.32) mmol/L Magnesium 1.8 (1.6-2.5) mg/dL Total Bilirubin 0.5 (0.0-1.0) mg/dL AST 10 (0-37) U/l ALT 72 H (0-40) U/l Alkaline Phosphatase 90 (39-117) U/L Troponin T (0-0.03) ng/ml NT-Pro-B Natriuret Pep 401.0 H (0-125) pg/ml Total Protein 5.7 L (5.9-8.4) gm/dL Albumin 3.5 (3.2-5.2) gm/dL Globulin 2.2 (2.2-3.7) gm/dL Albumin/Globulin Ratio 1.6 (1.0-2.3) 05/03/19 Range/Units 10:45 WBC (4.50-11.00) K/mcL RBC (4.63-6.08) M/mcL Hgb (13.7-17.5) g/dL Hct (40.1-51.0) % POC Hct (41.0-55.0) % MCV (80.0-100.0) fL MCH (26.0-34.0) pg MCHC (31.0-36.0) g/dL RDW (11.5-14.5) % Plt Count (140-440) K/mcL MPV (7.4-10.4) fL Gran % (38.0-78.0) % Lymph % (Auto) (15.5-49.0) % Dundy % (Auto) (1.0-12.0) % Eos % (Auto) (0.0-7.0) % Baso % (Auto) (0.0-2.0) % Gran # (1.80-8.00) K/mcL Lymph # (Auto) (1.50-4.80) K/mcL Dundy # (Auto) (0.10-0.90) K/mcL Eos # (Auto) (0.00-0.70) K/mcL Baso # (Auto) (0.00-0.30) K/mcL VBG Lactic Acid (0.5-2.0) mmol/L POC Sodium (133-145) mmol/L Sodium (133-145) mmol/L POC Potassium (3.3-5.1) mmol/L Potassium (3.3-5.1) mmol/L POC Chloride (96-108) mmol/L Chloride (96-108) mmol/L Carbon Dioxide (22-30) mmol/L POC Total CO2 (22-30) mmol/L Anion Gap (8-16) POC BUN (8-23) mg/dl BUN (8-23) mg/dl Creatinine (0.7-1.2) mg/dl POC Creatinine (0.7-1.2) mg/dl GFR Calculation Glucose (70-105) mg/dL POC Glucose (70-105) mg/dL Calcium (8.6-10.4) mg/dl POC WB Ioniz Calcium (1.16-1.32) mmol/L Magnesium (1.6-2.5) mg/dL Total Bilirubin (0.0-1.0) mg/dL AST (0-37) U/l ALT (0-40) U/l Alkaline Phosphatase (39-117) U/L Troponin T < 0.01 (0-0.03) ng/ml NT-Pro-B Natriuret Pep (0-125) pg/ml Total Protein (5.9-8.4) gm/dL Albumin (3.2-5.2) gm/dL Globulin (2.2-3.7) gm/dL Albumin/Globulin Ratio (1.0-2.3) ABG turned out to actually be a VBG with a pH of 7.42 PCO2 of 57 PO2 of 36 on 3 L nasal cannula - Radiology Data Radiology results reviewed: Yes I reviewed the patient's radiology results. Chest x-ray shows increased interstitial markings most likely from CHF but could be simply from pulmonary hypertension CT of the chest with contrast shows significant severe emphysema with new pneumonias in the upper lobes but no evidence of CHF - EKG Data EKG attestation: Yes I reviewed and interpreted this EKG., Yes There are no EKG findings of acute coronary syndrome EKG results narrative: EKG shows sinus rhythm with a short RI interval. Low voltage in extremity leads consistent with his lung disease. Some ST depression is noted in multiple leads but not significantly different than previous EKG from August 16, 2018. This will be reviewed by Dr. 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 However CHF is also remains a possibility. Concerning right hilar mass with right lung collapse on CT 1 week ago. We will go ahead and order laboratory get a CT scan of the lungs repeated and start blood cultures and antibiotic-Zosyn and vancomycin-as he meets sepsis criteria. We may need to add a pressor and start him on BiPAP depending on how things go. Initially started IV fluids but this was stopped secondary to his CHF history and requiring diuretics in the recent past. Chest x-ray pending Chest x-ray showed pulmonary vascular congestion consistent with CHF so we will go ahead and start furosemide-hopefully getting some of the fluid off lungs will enable him to breathe better and bring his blood pressure up. Suspect this is cor pulmonale. Start Solu-Medrol as well as DuoNeb. I revisited the patient's room and looked at his monitor. He continues to have low blood pressure so we will start some norepinephrine. VBG suggest compensation with a pH of 7.42. PCO2 is elevated but again this is likely a VBG. EKG is consistent with his lung disease. I am revisiting the chest x-ray and looking at the CT scan of the lungs it does not look like CHF after all. So we will start some IV fluids. CT does show upper lobe pneumonia. Discussed case with Dr. Lara, hospitalist who agreed except the patient for further care and evaluation in the hospital Disposition: Xfer As Inpt ([facility]) Condition: Serious Referrals: Papo Vega MD [Primary Care Provider] -
[2019-05-03 10:50] LABS: POC Blood Urea Nitrogen 18 mg/dl (8-23); POC CO2 32 mmol/L (22-30); POC Calcium, Ionized 1.11 mmol/L (1.16-1.32); POC Chloride 98 mmol/L (96-108); POC Creatinine 0.9 mg/dl (0.7-1.2); POC Glucose, Random 119 mg/dL (70-105); POC Potassium 3.7 mmol/L (3.3-5.1); POC Sodium 137 mmol/L (133-145)
[2019-05-03] MEDS ORDERED: FUROSEMIDE 40 MG/4 ML VIAL IV ONE (10:55)
[2019-05-03] MEDS ORDERED: IPRATROPIUM/ALBUTEROL 3 ML AMPUL.NEB NEB ONE (10:56)
[2019-05-03] MEDS ORDERED: methylPREDNISolone SOD SUCC 125 MG/2 ML VIAL IV ONE (10:56)
--- NOTE | 2019-05-03 11:13 | XRay Report ---
CLINICAL INFORMATION:Pneumonia TECHNIQUE: AP portable chest x-ray COMPARISON: Previous chest x-rays dated 08/18/2018, 08/16/2018, 04/23/2011 FINDINGS:Interstitial markings are prominent bilaterally. No focal pulmonary parenchymal infiltrate or consolidation. No pulmonary parenchymal mass. Heart size and vascularity are normal. Genesis and mediastinum are negative. No pulmonary edema or pulmonary congestion. No evidence for pleural fluid IMPRESSION: 1. No acute abnormality. 2. No interval change Interpreted and Authenticated by: Elliot Tavera 05/03/19
[2019-05-03 11:24] LABS: Basophils # (Auto) 0.05 K/mcL (0.00-0.30); Basophils % (Auto) 0.4 % (0.0-2.0); Eosinophils # (Auto) 0.06 K/mcL (0.00-0.70); Eosinophils % (Auto) 0.5 % (0.0-7.0); Granulocytes % (Auto) 83.9 % (38.0-78.0); Hematocrit 38.4 % (40.1-51.0); Lymphocytes # (Auto) 0.87 K/mcL (1.50-4.80); Lymphocytes % (Auto) 7.5 % (15.5-49.0); Mean Cell Volume 99.5 fL (80.0-100.0); Mean Corpuscular HGB Conc 33.9 g/dL (31.0-36.0); Mean Platelet Volume 9.7 fL (7.4-10.4); Monocytes % (Auto) 7.7 % (1.0-12.0); Platelet Count 214 K/mcL (140-440); RBC 3.86 M/mcL (4.63-6.08); Red Cell Distribution Width 12.7 % (11.5-14.5); WBC 11.6 K/mcL (4.50-11.00)
[2019-05-03] MEDS ORDERED: NOREPINEPHRINE BITARTRATE 8 MG in 0.9 % SODIUM CHLORIDE 242 ML IV SCH (11:30)
[2019-05-03] MEDS ORDERED: 0.9 % SODIUM CHLORIDE 250 ML IV SCH (11:30)
[2019-05-03 11:47] LABS: ALT/SGPT 72 U/l (0-40); AST/SGOT 10 U/l (0-37); Albumin 3.5 gm/dL (3.2-5.2); Albumin/Globulin Ratio 1.6 (1.0-2.3); Alkaline Phosphatase 90 U/L (39-117); Bilirubin,Total 0.5 mg/dL (0.0-1.0); Calcium 8.8 mg/dl (8.6-10.4); Carbon Dioxide 29 mmol/L (22-30); Chloride 97 mmol/L (96-108); Globulin 2.2 gm/dL (2.2-3.7); Glomerular Filtration Rate 78; Glucose 120 mg/dL (70-105)
[2019-05-03 11:49] LABS: Blood Urea Nitrogen 17 mg/dl (8-23)
--- NOTE | 2019-05-03 12:09 | Cat Scan Report ---
CLINICAL INFORMATION: hypoxia COMPARISON: Previous chest CT scan dated 08/17/2018 and 03/13/2011. Previous chest x-ray dated 05/03/2019 TECHNIQUE: Axial contrast enhanced images through the chest. Sagittally and coronally reformatted images. MIP reformatted images. 80ml Isovue 370 injected intravenously. FINDINGS: Lungs:Severe centrilobular emphysema. Is thickening of interlobular septa. There is no honeycombing. No bronchiectasis. There are multiple noncalcified pulmonary parenchymal nodules: - 6 mm right upper lobe, image 23 - 6 mm left upper lobe, image 33 - 6 mm right upper lobe, image 37 - 4 mm right middle lobe, image 61 - 4 mm right lower lobe, image 75 - 9 mm right lower lobe, image 85 - 11 mm left lower lobe, image 86 - 6 mm right lower lobe, image 91 These nodules are essentially stable since 2010 There is focal volume loss and possible pneumonia in the lingular segment of the left upper lobe. This is new. There is a small focal infiltrate in the apical posterior segment of the left upper lobe which is also new. No other focal infiltrates or interval change Mediastinum, vascular:No pathologic hilar or mediastinal lymphadenopathy. Main pulmonary artery measures 3.7 cm in cross-sectional diameter consistent with pulmonary arterial hypertension. Thoracic aorta is negative. There is calcification but no enlargement or dissection. There is reflux of contrast material into the inferior vena cava consistent with right heart strain Heart:No significant cardiomegaly. There is calcified coronary artery disease Pleura:No pleural fluid or pleural based mass. No pneumothorax. No hemothorax Axilla, supraclavicular regions, chest wall:No axillary adenopathy. No supraclavicular adenopathy. Musculoskeletal:No thoracic compression fractures. No thoracic lytic lesions. Ribs are negative. No acute rib fracture. Upper Abdomen:Negative IMPRESSION: 1. Severe centrilobular emphysema 2. Multiple pulmonary parenchymal nodules, stable 3. Focal areas of volume loss and possible pneumonia in the lingula and left upper lobe 4. Reflux of contrast material into the inferior vena cava consistent with right heart strain 5. Enlarged main pulmonary artery consistent with pulmonary arterial hypertension The exam was performed using radiation dose optimization techniques including, but not limited to, automated exposure control, adjustment of the mA and/or kV according to patient size and use of iterative reconstruction technique. Interpreted and Authenticated by: Elliot Tavera 2/12/20
--- NOTE | 2019-05-03 12:43 | Internal Med History&Physical ---
Medical - H&P: [facility] Patient information: Note initiated : 05/03/19 at 12:41 pm Service Date, if different from initiated Date: [] Patient: Sam Dexter a 69 y/o M admitted on for Weakness, Recent Flu, Low BP, SOB. Chief Complaint: [] Chief complaint: Worsening shortness of breath, hypotensive at PCP office History of present illness: Mr. Dexter is a 69 year old M who was recently hospitalized at [facility] and was discharged on April 30 with diagnosis of acute decompensated heart fail ure/COPD exacerbation. Patient was managed on steroids and bronchodilators. Echocardiogram revealed normal left ventricle systolic function. He was discharged home however he never really felt better and has progressive deteriorated with increasing shortness of breath, weakness and lightheadedness he presents to primary care physician's office where he was found to be hypotensive in the 90s with heart rate around 40 requiring 4 L oxygen with sats barely 90s. Patient was thereafter sent to [facility] ER initial work-up was consistent with left upper lobe pneumonia. Patient was started on Levophed in light of systolics dropping to 70s following administration of Lasix in the ER. Hospitalist service was consulted for management of above At the time evaluation patient is alert and respond to commands. He is barely able to talk in full sentences. He is currently on BiPAP. Initial blood gas 7.42/57/36 on 3 L oxygen. Systolics have improved to 90s on Levophed. EKG normal sinus Patient denies fever, chills but endorses to hot flashes, productive sputum. Denies diarrhea dysuria but has noticed a remarkable decline in functionality. Patient lives alone and receives help from a caregiver 2 to 3 hours a day. He risk factors include recent exposure to healthcare facility and recent smoking. Up-to-date on flu and pneumonia vaccine Review of systems 10 point review system was performed and is negative except for ones cussed above Medical - H&P: PMH Medical history: COPD Depression with anxiety (Chronic) Cigarette smoker (Chronic) Hypertension, essential (Chronic) Prostate cancer (Chronic) Obesity (BMI 30.0-34.9) (Chronic) History of NM/CAD at age 33 (coronary artery disease) (Chronic) DJD GERD ANXIETY Past Surgical History S/P cholecystectomy (Acute) S/P lumbar discectomy (Acute) S/P lumbar fusion (Acute) Family History Father CAD (coronary artery disease) Diabetes mellitus Psychiatric history: Reports: anxiety, depression - Social History smoking status: Current every day smoker Packs per day: 1 Alcohol use: Reports: None Drug use: Reports: none. 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 Follows up at [facility] for primary medical issues Medical - H&P: Meds Home Medications Medication Instructions Recorded Confirmed Type Alprostadil [Edex] 40 mcg IC PRN PRN 08/16/18 02/24/19 History FLUoxetine HCL [Prozac] 20 mg PO HS 08/16/18 05/03/19 History HYDROcodone/APAP 10/325MG [[place] 1 tab PO Q4H PRN 08/16/18 05/03/19 History 10-325Mg] Ipratropium/Albuterol Sulfate 1 puff INH PRN PRN 08/16/18 05/03/19 History [Combivent] Isosorbide Mononitrate [Isosorbide 60 mg PO DAILY 08/16/18 05/03/19 History Mononitrate ER] Omeprazole [Prilosec] 20 mg PO DAILY 08/16/18 05/03/19 History Pravastatin Sodium [Pravachol] 20 mg PO HS 08/21/18 05/03/19 History budesonide-formoterol HFA 160 2 puff INHALATION BID #10.2 g 11/07/18 05/03/19 Rx mcg-4.5 mcg/actuation aerosol inhaler atenolol 25 mg tablet 25 mg PO DAILY tab 02/24/19 05/03/19 History quetiapine 50 mg tablet 50 mg PO BID 02/24/19 05/03/19 History Docusate Sodium [Colace] 100 mg PO PRN PRN 05/03/19 05/03/19 History Furosemide [Lasix] 40 mg PO DAILY 05/03/19 05/03/19 History Lisinopril [Zestril] 2.5 mg PO DAILY 05/03/19 05/03/19 History methylPREDNISolone [Medrol] 4 mg PO DAILY 05/03/19 05/03/19 History Allergies Allergy/AdvReac Type Severity Reaction Status Date / Time ibuprofen Allergy Intermediate stomach Verified 05/03/19 10:22 upset naproxen Allergy Intermediate stomach Verified 05/03/19 10:22 upset metoprolol Allergy Unknown unknown Verified 05/03/19 10:22 Terazosin Allergy Unknown unknown Verified 05/03/19 10:22 aspirin AdvReac Mild Itching Verified 05/03/19 10:22 duloxetine AdvReac Mild Vomiting Verified 05/03/19 10:22 gabapentin AdvReac Mild Itching Verified 05/03/19 10:22 lovastatin AdvReac Mild Gastrointestinal Verified 05/03/19 10:22 Upset morphine [MORPHINE] AdvReac Mild Itching Verified 05/03/19 10:22 niacin [NIACIN] AdvReac Mild FLUSH Verified 05/03/19 10:22 oxycodone AdvReac Mild Itching Verified 05/03/19 10:22 simvastatin AdvReac Mild Gastrointestinal Verified 05/03/19 10:22 Upset Medical - H&P: Exam - Constitutional Vitals: Temp Pulse Resp BP Pulse Ox 97.8 F 74 15 98/65 94 05/03/19 10:22 05/03/19 12:16 05/03/19 12:16 05/03/19 12:16 05/03/19 12:16 General appearance: moderate distress (Shortness of breath) Exam: Alert oriented Head normocephalic Oral cavity dry no ear nose discharge Neck no lymphadenopathy S1-S2 regular rhythm no murmur Diminished breath sounds bases Expiratory rhonchi Abdomen soft nontender lower extremity no sinus clubbing no joint swelling Skin no suspicious lesion Psych alert cooperative but anxious Neuro nonfocal Medical - H&P: Reslt - Labs CBC & Chem 7: 05/03/19 10:45 05/03/19 10:44 Labs: Short CBC 05/03/19 Range/Units 10:45 WBC 11.6 H (4.50-11.00) K/mcL Hgb 13.0 L (13.7-17.5) g/dL Hct 38.4 L (40.1-51.0) % Plt Count 214 (140-440) K/mcL BMP 05/03/19 10:44 Sodium 136 Potassium 3.8 Chloride 97 Carbon Dioxide 29 BUN 17 Creatinine 1.0 Glucose 120 H Calcium 8.8 Cardiac Enzymes 05/03/19 Range/Units 10:45 Troponin T < 0.01 (0-0.03) ng/ml Liver Function 05/03/19 Range/Units 10:44 Total Bilirubin 0.5 (0.0-1.0) mg/dL AST 10 (0-37) U/l ALT 72 H (0-40) U/l Alkaline Phosphatase 90 (39-117) U/L Albumin 3.5 (3.2-5.2) gm/dL Medical - H&P: A/P (1) Acute and chronic respiratory failure with hypoxia Current visit: Yes Status: Acute * Acute respiratory failure with hypoxia-secondary to bilateral upper lobe pneumonia. Start noninvasive ventilation. Aspiration precautions/pulmonary toilet. * Bilateral upper lobe pneumonia continue aspiration precautions/antibiotic coverage * COPD exacerbation secondary above continue bronchodilators/jennifer roids/supplemental oxygen * Hypertension hold ESTELA inhibitor/atenolol/amlodipine until hypotension resolves * History of CAD continue isosorbide/ESTELA inhibitor * Anxiety disorder continue fluoxetine/olanzapine * GERD continue PPI * DJD continue home dose hydrocodone * Full code * Prophylaxis heparin Plan * Inpatient admission in light of Garrett 2 score of 15 * Noninvasive ventilation * Vasopressors * Serial blood gas chest imaging * Bronchodilators steroids * PT OT nutrition support
[2019-05-03] MEDS ORDERED: POLYETHYLENE GLYCOL 3350 17 GM PACKET PO PRN (14:16)
[2019-05-03] MEDS ORDERED: POTASSIUM CHLORIDE 20 MEQ PACKET PO PRN (14:16)
[2019-05-03] MEDS ORDERED: BISACODYL 10 MG SUPP.RECT PR PRN (14:16)
[2019-05-03] MEDS ORDERED: ACETAMINOPHEN 325 MG TABLET PO PRN (14:16)
[2019-05-03] MEDS ORDERED: ACETAMINOPHEN 650 MG/65 ML BOTTLE IV PRN (14:16)
[2019-05-03] MEDS ORDERED: MAGNESIUM SULFATE 2 GM/50 ML BAG IV PRN (14:16)
[2019-05-03] MEDS ORDERED: ONDANSETRON 4 MG/2 ML VIAL IV PRN (14:16)
[2019-05-03 14:21] LABS: Appearance,Urine CLEAR; Bilirubin,Urine NEG (NEG); Color,Urine YELLOW; Culture Indicated,Urine NO; Glucose,Urine (UA) NEGATIVE (NEG); Ketones,Urine NEG (NEG); Leukocyte Esterase,Urine NEG /uL (NEG); Nitrate,Urine NEG (NEG); Protein,Urine NEG (NEG); Specific Gravity,Urine 1.026 (1.000-1.035); Urine Blood NEG mg/dL (<0.03); Urobilinogen,Urine NEG (NEG)
[2019-05-03] MEDS: 0.9 % SODIUM CHLORIDE 10 ML SYRINGE IV SCH ×2 (14:36→20:24)
[2019-05-03] MEDS: IPRATROPIUM/ALBUTEROL 3 ML AMPUL.NEB NEB SCH ×3 (15:14→22:53)
[2019-05-03] MEDS ORDERED: 0.9 % SODIUM CHLORIDE 500 ML IV ONE (16:26)
[2019-05-03] MEDS: PIPERACILLIN SODIUM/TAZOBACTAM 3.375 GM in DEXTROSE 5% IN WATER 50 ML IV SCH (17:47)
[2019-05-03] MEDS: methylPREDNISolone SOD SUCC 125 MG/2 ML VIAL IV SCH (17:48)
[2019-05-03] MEDS: 0.9 % SODIUM CHLORIDE 250 ML IV SCH (17:54)
[2019-05-03] MEDS: BUDESONIDE 0.5 MG/2 ML AMPUL.NEB NEB SCH (19:04)
[2019-05-03] MEDS: SIMVASTATIN 10 MG TABLET PO SCH (20:23)
[2019-05-03] MEDS: QUEtiapine 100 MG TABLET PO SCH (20:23)
[2019-05-03] MEDS: FLUoxetine HCL 20 MG CAPSULE PO SCH (20:23)
[2019-05-03] MEDS: DOCUSATE SODIUM 100 MG CAPSULE PO SCH (20:24)
[2019-05-03] MEDS: LORazepam 2 MG/ML VIAL IV PRN (20:24)
[2019-05-03] MEDS: SENNOSIDES/DOCUSATE SODIUM 1 TAB TABLET PO SCH (20:24)
[2019-05-03] MEDS: HEPARIN 5,000 UNIT/ML VIAL SQ SCH (20:24)
[2019-05-03] MEDS: HYDROcodone/APAP 10/325MG TABLET PO PRN (20:37)
[2019-05-04] MEDS: PIPERACILLIN SODIUM/TAZOBACTAM 3.375 GM in DEXTROSE 5% IN WATER 50 ML IV SCH ×4 (00:45→17:44)
[2019-05-04] MEDS: methylPREDNISolone SOD SUCC 125 MG/2 ML VIAL IV SCH ×4 (00:50→17:46)
[2019-05-04] MEDS ORDERED: NOREPINEPHRINE BITARTRATE 8 MG in 0.9 % SODIUM CHLORIDE 242 ML IV PRN (01:30)
[2019-05-04] MEDS: 0.9 % SODIUM CHLORIDE 250 ML IV SCH ×2 (02:53→18:05)
[2019-05-04] MEDS: IPRATROPIUM/ALBUTEROL 3 ML AMPUL.NEB NEB SCH ×6 (02:54→23:05)
[2019-05-04] MEDS: 0.9 % SODIUM CHLORIDE 10 ML SYRINGE IV SCH ×4 (05:59→21:05)
[2019-05-04] MEDS: OMEPRAZOLE 20 MG CAPSULE PO SCH (07:41)
[2019-05-04] MEDS: HYDROcodone/APAP 10/325MG TABLET PO PRN ×3 (07:51→22:15)
[2019-05-04] MEDS: BUDESONIDE 0.5 MG/2 ML AMPUL.NEB NEB SCH ×2 (08:03→18:31)
[2019-05-04 08:18] LABS: Hematocrit 34.6 % (40.1-51.0); Hemoglobin 11.5 g/dL (13.7-17.5); Mean Cell Volume 99.7 fL (80.0-100.0); Mean Corpuscular HGB Conc 33.2 g/dL (31.0-36.0); Mean Platelet Volume 9.7 fL (7.4-10.4); Platelet Count 204 K/mcL (140-440); RBC 3.47 M/mcL (4.63-6.08); Red Cell Distribution Width 12.8 % (11.5-14.5); WBC 7.3 K/mcL (4.50-11.00)
[2019-05-04 08:36] LABS: Band Neutrophils % 1 % (0-10); Metamyelocytes % 1 % (0-0); Myelocytes % 1 % (0-0); Platelet Estimate NORMAL (NORMAL); RBC Morphology NORMAL (NORMAL); Segmented Neutrophils % 97 % (38-78)
[2019-05-04] MEDS: HEPARIN 5,000 UNIT/ML VIAL SQ SCH ×2 (08:46→21:04)
[2019-05-04] MEDS: MULTIVIT,THER IRON,CA,FA & MIN 1 TABLET PO SCH (08:47)
[2019-05-04] MEDS: QUEtiapine 100 MG TABLET PO SCH ×2 (08:47→21:04)
[2019-05-04] MEDS: DOCUSATE SODIUM 100 MG CAPSULE PO SCH ×2 (08:47→20:44)
[2019-05-04 09:03] LABS: ALT/SGPT 62 U/l (0-40); AST/SGOT 8 U/l (0-37); Albumin 3.5 gm/dL (3.2-5.2); Albumin/Globulin Ratio 1.6 (1.0-2.3); Alkaline Phosphatase 83 U/L (39-117); Bilirubin,Direct < 0.2 mg/dL (0.0-0.3); Bilirubin,Total 0.3 mg/dL (0.0-1.0); Blood Urea Nitrogen 24 mg/dl (8-23); Calcium 8.9 mg/dl (8.6-10.4); Carbon Dioxide 28 mmol/L (22-30); Chloride 99 mmol/L (96-108); Globulin 2.2 gm/dL (2.2-3.7); Glomerular Filtration Rate 92; Glucose 188 mg/dL (70-105); Lactate Dehydrogenase 224 U/L (94-250); Phosphorous 2.8 mg/dL (2.7-4.5); Triglycerides 277 mg/dl (<150); Uric Acid 2.1 mg/dL (2.5-8.0)
--- NOTE | 2019-05-04 10:41 | Internal Med Progress Note ---
Medical - PN: Subj Patient information: Note initiated : 05/04/19 at 10:37 am Service Date, if different from initiated Date: [] Patient: Sam Dexter a 69 y/o M admitted on 05/03/19 for Weakness, Recent Flu, Low BP, SOB. Chief Complaint: [] Interval history: Mr. Dexter is a 69 year old M who was recently hospitalized at [place] and was discharged on April 30 with diagnosis of acute decompensated heart fail ure/COPD exacerbation. Patient was managed on steroids and bronchodilators. Echocardiogram revealed normal left ventricle systolic function. He was discharged home however he never really felt better and has progressive deteriorated with increasing shortness of breath, weakness and lightheadedness he presents to primary care physician's office where he was found to be hypotensive in the 90s with heart rate around 40 requiring 4 L oxygen with sats barely 90s. Patient was thereafter sent to [facility] ER initial work-up was consistent with left upper lobe pneumonia. Patient was started on Levophed in light of systolics dropping to 70s following administration of Lasix in the ER. Hospitalist service was consulted for management of above At the time evaluation patient is alert and respond to commands. He is barely able to talk in full sentences. He is currently on BiPAP. Initial blood gas 7.42/57/36 on 3 L oxygen. Systolics have improved to 90s on Levophed. EKG normal sinus Patient denies fever, chills but endorses to hot flashes, productive sputum. Denies diarrhea dysuria but has noticed a remarkable decline in functionality. Patient lives alone and receives help from a caregiver 2 to 3 hours a day. He risk factors include recent exposure to healthcare facility and recent smoking. Up-to-date on flu and pneumonia vaccine 05/04-patient clinically improving. Overnight on BiPAP. This morning off BiPAP currently on 4 L oxygen. On IV steroids/bronchodilators/antibiotic coverage. Feels weak and tired and fatigued. However able to talk in full sentences. Very fatigued lethargic this morning. Frequently dozing off during conversation. White count 7.3 - Constitutional Vitals: Vital Signs Temp Pulse Resp BP Pulse Ox 97 F 96 H 15 100/70 93 05/04/19 08:00 05/04/19 09:29 05/04/19 09:29 05/04/19 09:01 05/04/19 09:29 Period Temp Pulse Resp BP Sys/Nuñez Pulse Ox Last 24 Hr 97 F-98.3 F 69-98 13-30 74-119/48-78 84-99 Intake and Output 05/03/19 05/04/19 05/04/19 21:59 05:59 13:59 Intake Total 890 410 410 Output Total 600 650 Balance 290 -240 410 Weight 175 lb Intake & Output: Intake & Output 05/03/19 05/04/19 05/04/19 21:59 05:59 13:59 Intake Total 890 410 410 Output Total 600 650 Balance 290 -240 410 Weight 175 lb Intake: IV 650 50 50 Sodium Chloride 0.9% 1,000 ml @ 100 Wide Open IV .Q0M ONE Rx#: [id number] Sodium Chloride 0.9% 500 ml @ 500 Wide Open IV BOLUS ONE Rx#: [id number] Zosyn 3.375 gm In Dextrose 5% 50 50 50 in Water 50 ml @ 100 mls/hr IV Q6H [facility] Rx#:[id number] Oral 240 360 360 Output: Void Amount 600 650 Other: Meal Dinner Percent of Meal Consumed 100% Urine Appearance Clear Urine Color Bright Yellow General appearance: no acute distress Exam: Alert oriented Expiratory rhonchi Labored breathing Nondistended abdomen No telemetry events Medical - PN: Obj Da - Labs CBC & Chem 7: 05/04/19 05:40 05/04/19 05:40 Labs: Abnormal Lab Results 05/04/19 05/04/19 05/03/19 05:40 05:40 10:45 WBC 11.6 H RBC 3.47 L 3.86 L Hgb 11.5 L 13.0 L Hct 34.6 L 38.4 L POC Hct Gran % 83.9 H Lymph % (Auto) 7.5 L Gran # 9.76 H Lymph # (Auto) 0.87 L Seg Neutrophils % 97 H Metamyelocytes % 1 H Myelocytes % 1 H POC Total CO2 BUN 24 H Glucose 188 H POC Glucose Uric Acid 2.1 L POC WB Ioniz Calcium GGT 74 H ALT 62 H NT-Pro-B Natriuret Pep Total Protein 5.7 L Triglycerides 277 H 05/03/19 10:44 WBC RBC Hgb Hct POC Hct 38.0 L Gran % Lymph % (Auto) Gran # Lymph # (Auto) Seg Neutrophils % Metamyelocytes % Myelocytes % POC Total CO2 32 H BUN Glucose 120 H POC Glucose 119 H Uric Acid POC WB Ioniz Calcium 1.11 L GGT ALT 72 H NT-Pro-B Natriuret Pep 401.0 H Total Protein 5.7 L Triglycerides Meds: Medications Acetaminophen (Tylenol) 650 mg PO Q4-6HP PRN; Protocol PRN Reason: Per Pain Protocol/Fever > 101 Hydrocodone Bitart/Acetaminophen ([place] 10/325mg) 1 tab PO Q4HP PRN; Protocol PRN Reason: Per Pain Protocol Last Admin: 05/04/19 07:51 Dose: 1 tab Documented by: Albuterol/Ipratropium (Duoneb) 3 ml NEB Q4HRT [facility] Last Admin: 05/04/19 07:31 Dose: 3 ml Documented by: Bisacodyl (Dulcolax) 10 mg MT Q2-3DAYS PRN PRN Reason: Constipation Budesonide (Pulmicort) 0.5 mg NEB Q12 [facility] Last Admin: 05/04/19 08:03 Dose: 0.5 mg Documented by: Docusate Sodium (Colace) 100 mg PO BID [facility] Last Admin: 05/04/19 08:47 Dose: Not Given Documented by: Fluoxetine HCl (Prozac) 20 mg PO HS [facility] Last Admin: 05/03/19 20:23 Dose: 20 mg Documented by: Heparin Sodium (Porcine) (Heparin) 5,000 unit SQ Q12 [facility] Last Admin: 05/04/19 08:46 Dose: 5,000 unit Documented by: Norepinephrine Bitartrate 8 mg (/ Sodium Chloride) 250 mls @ 18.75 mls/hr IV Q14H PRN; Protocol PRN Reason: Hypotension Sodium Chloride (Sodium Chloride 0.9%) 250 mls @ 20 mls/hr IV .[id number] [facility] Last Admin: 05/04/19 02:53 Dose: Not Given Documented by: Acetaminophen (Ofirmev) 650 mg in 65 mls @ 130 mls/hr IV Q6HP PRN; Protocol PRN Reason: Per Pain Protocol/Fever > 101 Magnesium Sulfate (Magnesium Sulfate) 2 gm in 50 mls @ 50 mls/hr IV UD PRN PRN Reason: MG = or < 1.7 Piperacillin Sod/Tazobactam (Sod 3.375 gm/ Dextrose) 50 mls @ 100 mls/hr IV Q6H [facility]; Protocol Last Infusion: 05/04/19 06:41 Dose: Infused Documented by: Iron Carb/Multivit/Dragline Mechanic/Folic Acid (Multivitamin W/Minerals) 1 tab PO DAILY [facility] Last Admin: 05/04/19 08:47 Dose: 1 tab Documented by: Lorazepam (Ativan) 0.5 - 2 mg IV Q2HP PRN PRN Reason: ANXIETY/SEDATION Last Admin: 05/03/19 20:24 Dose: 1 mg Documented by: Melatonin (Melatonin 3mg Tablet) 3 mg PO HSP PRN PRN Reason: Insomnia Methylprednisolone Sodium Succinate (Solu-Medrol) 60 mg IV Q6 [facility] Last Admin: 05/04/19 05:59 Dose: 60 mg Documented by: Omeprazole (Prilosec) 20 mg PO ACB [facility] Last Admin: 05/04/19 07:41 Dose: 20 mg Documented by: Ondansetron HCl (Zofran) 4 mg IV Q4-6HP PRN; Protocol PRN Reason: Nausea And Vomiting Polyethylene Glycol (Miralax) 17 gm PO DAILYP PRN PRN Reason: Constipation Potassium Chloride (Klor-Con) 40 meq PO DAILYP PRN PRN Reason: K+ < 3.5 Quetiapine Fumarate (Seroquel) 100 mg PO BID [facility] Last Admin: 05/04/19 08:47 Dose: 100 mg Documented by: Senna/Docusate Sodium (Senna Plus Tablet) 1 tab PO [facility] Last Admin: 05/03/19 20:24 Dose: Not Given Documented by: Simvastatin (Zocor) 10 mg PO [facility] Last Admin: 05/03/19 20:23 Dose: 10 mg Documented by: Sodium Chloride (Saline Flush) 10 ml IV Q8 [facility] Last Admin: 05/04/19 05:59 Dose: 10 ml Documented by: Medical - PN: A/P - Time Spent With Patient Total time spent is greater than 50% in coordination of care (as documented) at patient's floor/unit and/or counseling patient: Greater than 35 minutes (Critical care time) (1) Acute and chronic respiratory failure with hypoxia Status: Acute Assessment and plan: * Acute respiratory failure with hypoxia-secondary to left upper lobe pneumonia. Clinically improved on noninvasive mechanical ventilation. Continue aspiration precautions/pulmonary toilet and wean BiPAP as tolerated. * Left upper lobe pneumonia continue aspiration precautions/antibiotic coverage * COPD exacerbation secondary above continue bronchodilators/steroids/supplemental oxygen * Hypertension hold ESTELA inhibitor/atenolol/amlodipine until hypotension resolves * History of CAD continue isosorbide/ESTELA inhibitor * Anxiety disorder continue fluoxetine/olanzapine * GERD continue PPI * DJD continue home dose hydrocodone * History of smoking-willing to quit. Nicotine patch * Full code * Prophylaxis heparin Plan * Continue antibiotic coverage * Wean noninvasive ventilation * Wean IV steroids in 24 hours * Bronchodilators steroids * PT OT nutrition support * Smoking cessation counseling Current Visit: Yes
[2019-05-04] MEDS ORDERED: ASPIRIN 81 MG TAB.CHEW CHEWED ONE (18:15)
[2019-05-04] MEDS ORDERED: NITROGLYCERIN 0.4 MG TAB.SUBL SL PRN (18:15)
[2019-05-04] MEDS ORDERED: 0.9 % SODIUM CHLORIDE 1,000 ML IV SCH (18:15)
[2019-05-04 19:31] LABS: Basophils # (Auto) 0.02 K/mcL (0.00-0.30); Basophils % (Auto) 0.2 % (0.0-2.0); Eosinophils # (Auto) 0 K/mcL (0.00-0.70); Eosinophils % (Auto) 0 % (0.0-7.0); Granulocytes % (Auto) 94.7 % (38.0-78.0); Hematocrit 35.8 % (40.1-51.0); Hemoglobin 11.8 g/dL (13.7-17.5); Lymphocytes % (Auto) 1.7 % (15.5-49.0); Mean Cell Volume 101.4 fL (80.0-100.0); Mean Platelet Volume 9.7 fL (7.4-10.4); Monocytes # (Auto) 0.41 K/mcL (0.10-0.90); Monocytes % (Auto) 3.4 % (1.0-12.0); Platelet Count 205 K/mcL (140-440); RBC 3.53 M/mcL (4.63-6.08); WBC 11.9 K/mcL (4.50-11.00)
[2019-05-04 19:42] LABS: Creatine Kinase MB 1.5 ng/ml (0-4.9)
[2019-05-04 19:48] LABS: ALT/SGPT 55 U/l (0-40); AST/SGOT 7 U/l (0-37); Albumin 3.8 gm/dL (3.2-5.2); Albumin/Globulin Ratio 1.8 (1.0-2.3); Alkaline Phosphatase 85 U/L (39-117); Bilirubin,Total 0.3 mg/dL (0.0-1.0); Blood Urea Nitrogen 20 mg/dl (8-23); Calcium 9.3 mg/dl (8.6-10.4); Carbon Dioxide 29 mmol/L (22-30); Chloride 100 mmol/L (96-108); Creatine Kinase 19 IU/L (24-195); Globulin 2.1 gm/dL (2.2-3.7); Glomerular Filtration Rate 92; Glucose 207 mg/dL (70-105)
[2019-05-04] MEDS: SENNOSIDES/DOCUSATE SODIUM 1 TAB TABLET PO SCH (20:44)
[2019-05-04] MEDS: SIMVASTATIN 10 MG TABLET PO SCH (21:05)
[2019-05-04] MEDS: FLUoxetine HCL 20 MG CAPSULE PO SCH (21:05)
[2019-05-05] MEDS: methylPREDNISolone SOD SUCC 125 MG/2 ML VIAL IV SCH ×4 (00:10→17:17)
[2019-05-05] MEDS: PIPERACILLIN SODIUM/TAZOBACTAM 3.375 GM in DEXTROSE 5% IN WATER 50 ML IV SCH ×4 (00:10→17:17)
[2019-05-05] MEDS: BUDESONIDE 0.5 MG/2 ML AMPUL.NEB NEB SCH ×2 (00:11→07:14)
[2019-05-05] MEDS: HYDROcodone/APAP 10/325MG TABLET PO PRN ×3 (02:15→21:34)
[2019-05-05] MEDS: IPRATROPIUM/ALBUTEROL 3 ML AMPUL.NEB NEB SCH ×6 (04:39→19:37)
[2019-05-05] MEDS: 0.9 % SODIUM CHLORIDE 10 ML SYRINGE IV SCH ×3 (05:42→23:42)
--- NOTE | 2019-05-05 06:57 | XRay Report ---
CLINICAL INFORMATION:Weakness. History of flu. Hypoxia and hypotension TECHNIQUE: AP portable semiupright chest x-ray COMPARISON: Previous chest x-ray dated 05/03/2019. Previous CT scan dated 05/03/2019 FINDINGS:There is cardiomegaly. This is increased since previous examination. Pulmonary vascularity and interstitium are prominent. Findings are consistent with interstitial pulmonary edema. Appearance is worsened from previous examination. No focal pulmonary parenchymal consolidation. IMPRESSION: 1. Increased cardiomegaly 2. Findings consistent with interstitial pulmonary edema, worse since previous examination 3. No focal pulmonary parenchymal consolidation Interpreted and Authenticated by: Elliot Tavera 05/05/19
[2019-05-05] MEDS: OMEPRAZOLE 20 MG CAPSULE PO SCH (07:08)
[2019-05-05 08:05] LABS: Hematocrit 34.8 % (40.1-51.0); Hemoglobin 11.3 g/dL (13.7-17.5); Mean Corpuscular HGB Conc 32.5 g/dL (31.0-36.0); Mean Platelet Volume 9.7 fL (7.4-10.4); Platelet Count 211 K/mcL (140-440); RBC 3.38 M/mcL (4.63-6.08); Red Cell Distribution Width 13.1 % (11.5-14.5); WBC 14.9 K/mcL (4.50-11.00)
[2019-05-05 08:16] LABS: ALT/SGPT 48 U/l (0-40); AST/SGOT 5 U/l (0-37); Albumin 3.3 gm/dL (3.2-5.2); Albumin/Globulin Ratio 1.5 (1.0-2.3); Alkaline Phosphatase 71 U/L (39-117); Bilirubin,Total 0.2 mg/dL (0.0-1.0); Calcium 9.1 mg/dl (8.6-10.4); Carbon Dioxide 25 mmol/L (22-30); Chloride 102 mmol/L (96-108); Globulin 2.2 gm/dL (2.2-3.7); Glomerular Filtration Rate 92; Glucose 186 mg/dL (70-105); Lactate Dehydrogenase 205 U/L (94-250); Triglycerides 185 mg/dl (<150)
[2019-05-05 08:17] LABS: Bilirubin,Direct < 0.2 mg/dL (0.0-0.3); Blood Urea Nitrogen 26 mg/dl (8-23); Phosphorous 2.1 mg/dL (2.7-4.5); Uric Acid 1.7 mg/dL (2.5-8.0)
[2019-05-05] MEDS: QUEtiapine 100 MG TABLET PO SCH ×2 (08:26→21:30)
[2019-05-05] MEDS: MULTIVIT,THER IRON,CA,FA & MIN 1 TABLET PO SCH (08:26)
[2019-05-05] MEDS: HEPARIN 5,000 UNIT/ML VIAL SQ SCH ×2 (08:26→21:30)
[2019-05-05] MEDS: DOCUSATE SODIUM 100 MG CAPSULE PO SCH ×2 (08:26→21:31)
[2019-05-05 08:45] LABS: Band Neutrophils % 1 % (0-10); Lymphocytes % 4 % (15-49); Macrocytosis 1+ (NONE SEEN); Monocytes % (Manual) 2 % (1-12); Myelocytes % 3 % (0-0); Platelet Estimate NORMAL (NORMAL); RBC Morphology ABNORM (NORMAL); Segmented Neutrophils % 90 % (38-78)
[2019-05-05] MEDS ORDERED: ALPROSTADIL 40 MCG IC PRN (08:54)
[2019-05-05] MEDS ORDERED: OMEPRAZOLE 20 MG CAPSULE PO SCH (09:00)
[2019-05-05] MEDS ORDERED: BUDESONIDE INHALATION SCH (09:00)
[2019-05-05] MEDS ORDERED: QUETIAPINE FUMARATE 100 MG PO SCH (09:00)
[2019-05-05] MEDS ORDERED: [UNRECOGNIZED DRUG - OTHER] INHALATION SCH (09:00)
[2019-05-05] MEDS ORDERED: FORMOTEROL FUMARATE INHALATION SCH (09:00)
[2019-05-05] MEDS: FUROSEMIDE 20 MG/2 ML VIAL IV SCH ×3 (10:02→21:34)
[2019-05-05] MEDS: ATENOLOL 25 MG TABLET PO SCH (10:02)
[2019-05-05] MEDS: AZITHROMYCIN 500 MG in DEXTROSE 5% IN WATER 250 ML IV SCH (10:02)
[2019-05-05] MEDS: ISOSORBIDE MONONITRATE 60 MG TAB.XL.24H PO SCH (10:03)
[2019-05-05] MEDS: LISINOPRIL 5 MG TABLET PO SCH (10:04)
[2019-05-05] MEDS: LORazepam 2 MG/ML VIAL IV PRN (10:14)
[2019-05-05] MEDS ORDERED: DOCUSATE SODIUM 100 MG CAPSULE PO SCH (21:00)
[2019-05-05] MEDS ORDERED: PRAVASTATIN 20 MG TABLET PO SCH (21:00)
[2019-05-05] MEDS ORDERED: FLUOXETINE HCL 20 MG PO SCH (21:00)
[2019-05-05] MEDS: FLUoxetine HCL 20 MG CAPSULE PO SCH (21:30)
[2019-05-05] MEDS: Budesonide/Formoterol Fumarate [Symbicort] 160-4.5 mcg Inhaler INH SCH (21:30)
[2019-05-05] MEDS: SENNOSIDES/DOCUSATE SODIUM 1 TAB TABLET PO SCH (21:30)
[2019-05-05] MEDS: SIMVASTATIN 10 MG TABLET PO SCH (21:30)
--- NOTE | 2019-05-05 23:13 | Internal Med Progress Note ---
Medical - PN: Subj Patient information: Note initiated : 05/05/19 at 11:11 pm Service Date, if different from initiated Date: [] Patient: Sam Dexter a 69 y/o M admitted on 05/03/19 for Weakness, Recent Flu, Low BP, SOB. Chief Complaint: [] Interval history: Mr. Dexter is a 69 year old M who was recently hospitalized at [facility] and was discharged on April 30 with diagnosis of acute decompensated heart fail ure/COPD exacerbation. Patient was managed on steroids and bronchodilators. Echocardiogram revealed normal left ventricle systolic function. He was discharged home however he never really felt better and has progressive deteriorated with increasing shortness of breath, weakness and lightheadedness he presents to primary care physician's office where he was found to be hypotensive in the 90s with heart rate around 40 requiring 4 L oxygen with sats barely 90s. Patient was thereafter sent to [facility] ER initial work-up was consistent with left upper lobe pneumonia. Patient was started on Levophed in light of systolics dropping to 70s following administration of Lasix in the ER. Hospitalist service was consulted for management of above At the time evaluation patient is alert and respond to commands. He is barely able to talk in full sentences. He is currently on BiPAP. Initial blood gas 7.42/57/36 on 3 L oxygen. Systolics have improved to 90s on Levophed. EKG normal sinus Patient denies fever, chills but endorses to hot flashes, productive sputum. Denies diarrhea dysuria but has noticed a remarkable decline in functionality. Patient lives alone and receives help from a caregiver 2 to 3 hours a day. He risk factors include recent exposure to healthcare facility and recent smoking. Up-to-date on flu and pneumonia vaccine 05/04-patient clinically improving. Overnight on BiPAP. This morning off BiPAP currently on 4 L oxygen. On IV steroids/bronchodilators/antibiotic coverage. Feels weak and tired and fatigued. However able to talk in full sentences. Very fatigued lethargic this morning. Frequently dozing off during conversation. White count 7.3 05/05-patient continues to deteriorate. Worsening chest infiltrates. On BiPAP. Pulmonary edema noted. Started on diuretics. Continue antibiotic coverage. White count up at 14.9, 90% neutrophils. Recheck ABG/chest imaging a.m. - Constitutional Vitals: Vital Signs Temp Pulse Resp BP Pulse Ox 98.1 F 82 24 H 118/68 97 05/05/19 20:00 05/05/19 20:00 05/05/19 20:00 05/05/19 20:00 05/05/19 20:00 Period Temp Pulse Resp BP Sys/Nuñez Pulse Ox Last 24 Hr 96.8 F-99.3 F 82-118 12-25 101-135/57-91 76-100 Intake and Output 05/05/19 05/05/19 05/06/19 13:59 21:59 05:59 Intake Total 340 600 Output Total 550 551 Balance -210 49 Intake & Output: Intake & Output 05/05/19 05/05/19 05/06/19 13:59 21:59 05:59 Intake Total 340 600 Output Total 550 551 Balance -210 49 Intake: IV 100 Zosyn 3.375 gm In Dextrose 5% 100 in Water 50 ml @ 100 mls/hr IV Q6H [facility] Rx#:[id number] Oral 240 600 Output: Void Amount 550 550 # of times incontinent of urine 1 Other: Meal Breakfast Dinner Percent of Meal Consumed 100% 100% Urine Appearance Clear Urine Color Bright Yellow General appearance: moderate distress Exam: Worsening shortness of breath Labored breathing Tachycardia Late inspiratory crackles Medical - PN: Obj Da - Labs CBC & Chem 7: 05/05/19 05:50 05/05/19 05:50 Labs: Abnormal Lab Results 05/05/19 05/05/19 05/04/19 05:50 05:50 18:30 WBC 14.9 H RBC 3.38 L Hgb 11.3 L Hct 34.8 L POC Hct MCV 103.0 H Gran % Lymph % (Auto) Gran # Lymph # (Auto) Seg Neutrophils % 90 H Lymphocytes % 4 L Metamyelocytes % Myelocytes % 3 H RBC Morphology Abnorm A Macrocytosis 1+ A POC Total CO2 BUN 26 H Glucose 186 H 207 H POC Glucose Uric Acid 1.7 L POC WB Ioniz Calcium Phosphorus 2.1 L GGT 63 H ALT 48 H 55 H Total Creatine Kinase 19 L NT-Pro-B Natriuret Pep Total Protein 5.5 L Globulin 2.1 L Triglycerides 185 H 05/04/19 05/04/19 05/04/19 18:30 05:40 05:40 WBC 11.9 H RBC 3.53 L 3.47 L Hgb 11.8 L 11.5 L Hct 35.8 L 34.6 L POC Hct MCV 101.4 H Gran % 94.7 H Lymph % (Auto) 1.7 L Gran # 11.26 H Lymph # (Auto) 0.20 L Seg Neutrophils % 97 H Lymphocytes % Metamyelocytes % 1 H Myelocytes % 1 H RBC Morphology Macrocytosis POC Total CO2 BUN 24 H Glucose 188 H POC Glucose Uric Acid 2.1 L POC WB Ioniz Calcium Phosphorus GGT 74 H ALT 62 H Total Creatine Kinase NT-Pro-B Natriuret Pep Total Protein 5.7 L Globulin Triglycerides 277 H 05/03/19 05/03/19 10:45 10:44 WBC 11.6 H RBC 3.86 L Hgb 13.0 L Hct 38.4 L POC Hct 38.0 L MCV Gran % 83.9 H Lymph % (Auto) 7.5 L Gran # 9.76 H Lymph # (Auto) 0.87 L Seg Neutrophils % Lymphocytes % Metamyelocytes % Myelocytes % RBC Morphology Macrocytosis POC Total CO2 32 H BUN Glucose 120 H POC Glucose 119 H Uric Acid POC WB Ioniz Calcium 1.11 L Phosphorus GGT ALT 72 H Total Creatine Kinase NT-Pro-B Natriuret Pep 401.0 H Total Protein 5.7 L Globulin Triglycerides Meds: Medications Acetaminophen (Tylenol) 650 mg PO Q4-6HP PRN; Protocol PRN Reason: Per Pain Protocol/Fever > 101 Hydrocodone Bitart/Acetaminophen ([place] 10/325mg) 1 tab PO Q4HP PRN; Protocol PRN Reason: Pain Last Admin: 05/05/19 21:34 Dose: 1 tab Documented by: Albuterol/Ipratropium (Duoneb) 3 ml NEB Q4HRT [facility] Last Admin: 05/05/19 19:37 Dose: Not Given Documented by: Atenolol (Tenormin) 25 mg PO DAILY [facility] Last Admin: 05/05/19 10:02 Dose: 25 mg Documented by: Bisacodyl (Dulcolax) 10 mg ME Q2-3DAYS PRN PRN Reason: Constipation Budesonide (Pulmicort) 0.5 mg NEB Q12 [facility] Last Admin: 05/05/19 07:14 Dose: 0.5 mg Documented by: Docusate Sodium (Colace) 100 mg PO BID [facility] Last Admin: 05/05/19 21:31 Dose: Not Given Documented by: Fluoxetine HCl (Prozac) 20 mg PO HS [facility] Last Admin: 05/05/19 21:30 Dose: 20 mg Documented by: Furosemide (Lasix) 20 mg IV Q8 [facility] Last Admin: 05/05/19 21:34 Dose: 20 mg Documented by: Heparin Sodium (Porcine) (Heparin) 5,000 unit SQ Q12 [facility] Last Admin: 05/05/19 21:30 Dose: 5,000 unit Documented by: Norepinephrine Bitartrate 8 mg (/ Sodium Chloride) 250 mls @ 18.75 mls/hr IV Q14H PRN; Protocol PRN Reason: Hypotension Acetaminophen (Ofirmev) 650 mg in 65 mls @ 130 mls/hr IV Q6HP PRN; Protocol PRN Reason: Per Pain Protocol/Fever > 101 Magnesium Sulfate (Magnesium Sulfate) 2 gm in 50 mls @ 50 mls/hr IV UD PRN PRN Reason: MG = or < 1.7 Last Admin: 05/05/19 08:38 Dose: 50 mls/hr Documented by: Piperacillin Sod/Tazobactam (Sod 3.375 gm/ Dextrose) 50 mls @ 100 mls/hr IV Q6H [facility]; Protocol Last Admin: 05/05/19 17:17 Dose: 100 mls/hr Documented by: Sodium Chloride (Sodium Chloride 0.9%) 1,000 mls @ 0 mls/hr IV .Q0M [facility] Azithromycin 500 mg/ Dextrose 250 mls @ 250 mls/hr IV Q24H [facility]; Protocol Stop: 05/07/19 10:59 Last Admin: 05/05/19 10:02 Dose: 250 mls/hr Documented by: Iron Carb/Multivit/[place]/Folic Acid (Multivitamin W/Minerals) 1 tab PO DAILY [facility] Last Admin: 05/05/19 08:26 Dose: 1 tab Documented by: Isosorbide Mononitrate (Imdur) 120 mg PO DAILY [facility] Last Admin: 05/05/19 10:03 Dose: 120 mg Documented by: Lisinopril (Zestril) 2.5 mg PO DAILY [facility] Last Admin: 05/05/19 10:04 Dose: 2.5 mg Documented by: Lorazepam (Ativan) 0.5 - 2 mg IV Q2HP PRN PRN Reason: ANXIETY/SEDATION Last Admin: 05/05/19 10:14 Dose: 1 mg Documented by: Melatonin (Melatonin 3mg Tablet) 3 mg PO HSP PRN PRN Reason: Insomnia Methylprednisolone Sodium Succinate (Solu-Medrol) 60 mg IV Q6 [facility] Last Admin: 05/05/19 17:17 Dose: 60 mg Documented by: Nitroglycerin (Nitrostat) 0.4 mg SL Q5M PRN PRN Reason: Chest Pain Omeprazole (Prilosec) 20 mg PO ACB [facility] Last Admin: 05/05/19 07:08 Dose: 20 mg Documented by: Ondansetron HCl (Zofran) 4 mg IV Q4-6HP PRN; Protocol PRN Reason: Nausea And Vomiting Budesonide/Formoterol Fumarate [Symbicort] 160-4.5 Mcg Inhaler 2 dose INH BID [facility] Last Admin: 05/05/19 21:30 Dose: Not Given Documented by: Polyethylene Glycol (Miralax) 17 gm PO DAILYP PRN PRN Reason: Constipation Potassium Chloride (Klor-Con) 40 meq PO DAILYP PRN PRN Reason: K+ < 3.5 Quetiapine Fumarate (Seroquel) 100 mg PO BID [facility] Last Admin: 05/05/19 21:30 Dose: 100 mg Documented by: Senna/Docusate Sodium (Senna Plus Tablet) [address] [facility] Last Admin: 05/05/19 21:30 Dose: Not Given Documented by: Simvastatin (Zocor) [address] [facility] Last Admin: 05/05/19 21:30 Dose: 10 mg Documented by: Sodium Chloride (Saline Flush) 10 ml IV Q8 [facility] Last Admin: 05/05/19 14:11 Dose: 10 ml Documented by: Medical - PN: A/P - Time Spent With Patient Total time spent is greater than 50% in coordination of care (as documented) at patient's floor/unit and/or counseling patient: Greater than 35 minutes (Critical care time) (1) Acute and chronic respiratory failure with hypoxia Status: Acute Assessment and plan: * Acute respiratory failure with hypoxia-worsening chest infiltrates with pulmonary edema on interval imaging. Continue noninvasive mechanical ventilation. Continue aspiration precautions/pulmonary toilet. Serial ABGs and chest imaging. Antibiotic coverage. * Left upper lobe pneumonia on antibiotic coverage * COPD exacerbation secondary above continue bronchodilators/steroids/supplemental oxygen * Hypertension held ESTELA inhibitor/atenolol/amlodipine until hypotension resolves * History of CAD continue isosorbide/ESTELA inhibitor on hold * Anxiety disorder continue fluoxetine/olanzapine * GERD continue PPI * DJD continue home dose hydrocodone * History of smoking-willing to quit. Nicotine patch * Full code * Prophylaxis heparin Plan * Continue antibiotic coverage * Start aggressive diuresis * Continue noninvasive ventilation * Lower steroids to 60 twice daily * PT OT nutrition support Current Visit: Yes
[2019-05-06] MEDS: PIPERACILLIN SODIUM/TAZOBACTAM 3.375 GM in DEXTROSE 5% IN WATER 50 ML IV SCH ×4 (00:48→19:07)
[2019-05-06] MEDS: IPRATROPIUM/ALBUTEROL 3 ML AMPUL.NEB NEB SCH ×6 (03:51→18:39)
[2019-05-06] MEDS: 0.9 % SODIUM CHLORIDE 10 ML SYRINGE IV SCH ×4 (06:06→21:25)
[2019-05-06] MEDS: FUROSEMIDE 20 MG/2 ML VIAL IV SCH ×3 (06:06→21:25)
[2019-05-06] MEDS: HYDROcodone/APAP 10/325MG TABLET PO PRN ×3 (06:11→21:24)
[2019-05-06 06:23] LABS: Hematocrit 34.4 % (40.1-51.0); Hemoglobin 11.1 g/dL (13.7-17.5); Mean Cell Volume 102.4 fL (80.0-100.0); Mean Corpuscular HGB Conc 32.3 g/dL (31.0-36.0); Mean Platelet Volume 9.5 fL (7.4-10.4); Platelet Count 195 K/mcL (140-440); RBC 3.36 M/mcL (4.63-6.08); Red Cell Distribution Width 13.2 % (11.5-14.5); WBC 12.3 K/mcL (4.50-11.00)
[2019-05-06 06:44] LABS: ALT/SGPT 45 U/l (0-40); AST/SGOT 7 U/l (0-37); Albumin 3.3 gm/dL (3.2-5.2); Albumin/Globulin Ratio 1.6 (1.0-2.3); Alkaline Phosphatase 64 U/L (39-117); Bilirubin,Direct < 0.2 mg/dL (0.0-0.3); Bilirubin,Total 0.3 mg/dL (0.0-1.0); Blood Urea Nitrogen 27 mg/dl (8-23); Calcium 8.8 mg/dl (8.6-10.4); Carbon Dioxide 29 mmol/L (22-30); Chloride 100 mmol/L (96-108); Globulin 2.1 gm/dL (2.2-3.7); Glomerular Filtration Rate 98; Glucose 125 mg/dL (70-105); Lactate Dehydrogenase 208 U/L (94-250); Phosphorous 2.4 mg/dL (2.7-4.5); Triglycerides 220 mg/dl (<150); Uric Acid 1.6 mg/dL (2.5-8.0)
[2019-05-06 07:18] LABS: Lymphocytes % 3 % (15-49); Macrocytosis 1+ (NONE SEEN); Monocytes % (Manual) 7 % (1-12); Platelet Estimate NORMAL (NORMAL); RBC Morphology ABNORM (NORMAL); Segmented Neutrophils % 90 % (38-78)
[2019-05-06] MEDS: OMEPRAZOLE 20 MG CAPSULE PO SCH (07:30)
[2019-05-06] MEDS: BUDESONIDE 0.5 MG/2 ML AMPUL.NEB NEB SCH ×3 (07:39→18:39)
--- NOTE | 2019-05-06 09:37 | Internal Med Progress Note ---
Medical - PN: Subj Patient information: Note initiated : 05/06/19 at 9:33 am Service Date, if different from initiated Date: [] Patient: Sam Dexter a 69 y/o M admitted on 05/03/19 for Weakness, Recent Flu, Low BP, SOB. Chief Complaint: [] Interval history: Mr. Dexter is a 69 year old M who was recently hospitalized at [place] and was discharged on April 30 with diagnosis of acute decompensated heart failu re/COPD exacerbation. Patient was managed on steroids and bronchodilators. Echocardiogram revealed normal left ventricle systolic function. He was discharged home however he never really felt better and has progressive deteriorated with increasing shortness of breath, weakness and lightheadedness he presents to primary care physician's office where he was found to be hypotensive in the 90s with heart rate around 40 requiring 4 L oxygen with sats barely 90s. Patient was thereafter sent to [facility] ER initial work-up was consistent with left upper lobe pneumonia. Patient was started on Levophed in light of systolics dropping to 70s following administration of Lasix in the ER. Hospitalist service was consulted for management of above At the time evaluation patient is alert and respond to commands. He is barely able to talk in full sentences. He is currently on BiPAP. Initial blood gas 7.42/57/36 on 3 L oxygen. Systolics have improved to 90s on Levophed. EKG normal sinus Patient denies fever, chills but endorses to hot flashes, productive sputum. Denies diarrhea dysuria but has noticed a remarkable decline in functionality. Patient lives alone and receives help from a caregiver 2 to 3 hours a day. He risk factors include recent exposure to healthcare facility and recent smoking. Up-to-date on flu and pneumonia vaccine 05/04-patient clinically improving. Overnight on BiPAP. This morning off BiPAP currently on 4 L oxygen. On IV steroids/bronchodilators/antibiotic coverage. Feels weak and tired and fatigued. However able to talk in full sentences. Very fatigued lethargic this morning. Frequently dozing off during conversation. White count 7.3 05/05-patient continues to deteriorate. Worsening chest infiltrates. On BiPAP. Pulmonary edema noted. Started on diuretics. Continue antibiotic coverage. White count up at 14.9, 90% neutrophils. Recheck ABG/chest imaging a.m. 05/06-patient remains very wheezy and short of breath however feels better since previous day. Diuresing gradually. On antibiotic coverage for chest infiltrate. White count downtrending. Methylprednisolone lowered. Continue PT OT/breathing treatments. Continue nutrition support. Overall long-term prognosis poor in the setting of advanced COPD - Constitutional Vitals: Vital Signs Temp Pulse Resp BP Pulse Ox 97.9 F 74 16 122/72 95 05/06/19 04:00 05/06/19 07:41 05/06/19 07:41 05/06/19 05:56 05/06/19 07:41 Period Temp Pulse Resp BP Sys/Nuñez Pulse Ox Last 24 Hr 96.9 F-99.3 F 72-88 16-24 101-122/57-72 93-100 Intake and Output 05/05/19 05/06/19 05/06/19 21:59 05:59 13:59 Intake Total 650 50 50 Output Total 551 900 Balance 99 -850 50 Weight 171 lb 8 oz Intake & Output: Intake & Output 05/05/19 05/06/19 05/06/19 21:59 05:59 13:59 Intake Total 650 50 50 Output Total 551 900 Balance 99 -850 50 Weight 171 lb 8 oz Intake: IV 50 50 50 Zosyn 3.375 gm In Dextrose 5% 50 50 50 in Water 50 ml @ 100 mls/hr IV Q6H [facility] Rx#:[id number] Oral 600 Output: Void Amount 550 900 # of times incontinent of urine 1 Other: Meal Dinner Percent of Meal Consumed 100% Urine Appearance Clear Clear Urine Color Bright Yellow Bright Yellow General appearance: moderate distress (Short of breath) Exam: Labored breathing Tachypneic and tachycardic Anxious Audible expiratory wheeze No lymphedema Medical - PN: Obj Da - Labs CBC & Chem 7: 05/06/19 05:42 05/06/19 05:42 Labs: Abnormal Lab Results 05/06/19 05/06/19 05/05/19 05:42 05:42 05:50 WBC 12.3 H RBC 3.36 L Hgb 11.1 L Hct 34.4 L POC Hct MCV 102.4 H Gran % Lymph % (Auto) Gran # Lymph # (Auto) Seg Neutrophils % 90 H Lymphocytes % 3 L Metamyelocytes % Myelocytes % RBC Morphology Abnorm A Macrocytosis 1+ A POC Total CO2 BUN 27 H 26 H Glucose 125 H 186 H POC Glucose Uric Acid 1.6 L 1.7 L POC WB Ioniz Calcium Phosphorus 2.4 L 2.1 L GGT 63 H 63 H ALT 45 H 48 H Total Creatine Kinase NT-Pro-B Natriuret Pep Total Protein 5.4 L 5.5 L Globulin 2.1 L Triglycerides 220 H 185 H 05/05/19 05/04/19 05/04/19 05:50 18:30 18:30 WBC 14.9 H 11.9 H RBC 3.38 L 3.53 L Hgb 11.3 L 11.8 L Hct 34.8 L 35.8 L POC Hct MCV 103.0 H 101.4 H Gran % 94.7 H Lymph % (Auto) 1.7 L Gran # 11.26 H Lymph # (Auto) 0.20 L Seg Neutrophils % 90 H Lymphocytes % 4 L Metamyelocytes % Myelocytes % 3 H RBC Morphology Abnorm A Macrocytosis 1+ A POC Total CO2 BUN Glucose 207 H POC Glucose Uric Acid POC WB Ioniz Calcium Phosphorus GGT ALT 55 H Total Creatine Kinase 19 L NT-Pro-B Natriuret Pep Total Protein Globulin 2.1 L Triglycerides 05/04/19 05/04/19 05/03/19 05:40 05:40 10:45 WBC 11.6 H RBC 3.47 L 3.86 L Hgb 11.5 L 13.0 L Hct 34.6 L 38.4 L POC Hct MCV Gran % 83.9 H Lymph % (Auto) 7.5 L Gran # 9.76 H Lymph # (Auto) 0.87 L Seg Neutrophils % 97 H Lymphocytes % Metamyelocytes % 1 H Myelocytes % 1 H RBC Morphology Macrocytosis POC Total CO2 BUN 24 H Glucose 188 H POC Glucose Uric Acid 2.1 L POC WB Ioniz Calcium Phosphorus GGT 74 H ALT 62 H Total Creatine Kinase NT-Pro-B Natriuret Pep Total Protein 5.7 L Globulin Triglycerides 277 H 05/03/19 10:44 WBC RBC Hgb Hct POC Hct 38.0 L MCV Gran % Lymph % (Auto) Gran # Lymph # (Auto) Seg Neutrophils % Lymphocytes % Metamyelocytes % Myelocytes % RBC Morphology Macrocytosis POC Total CO2 32 H BUN Glucose 120 H POC Glucose 119 H Uric Acid POC WB Ioniz Calcium 1.11 L Phosphorus GGT ALT 72 H Total Creatine Kinase NT-Pro-B Natriuret Pep 401.0 H Total Protein 5.7 L Globulin Triglycerides Meds: Medications Acetaminophen (Tylenol) 650 mg PO Q4-6HP PRN; Protocol PRN Reason: Per Pain Protocol/Fever > 101 Hydrocodone Bitart/Acetaminophen ([place] 10/325mg) 1 tab PO Q4HP PRN; Protocol PRN Reason: Pain Last Admin: 05/06/19 06:11 Dose: 1 tab Documented by: Albuterol/Ipratropium (Duoneb) 3 ml NEB Q4HRT [facility] Last Admin: 05/06/19 07:39 Dose: 3 ml Documented by: Atenolol (Tenormin) 25 mg PO DAILY [facility] Last Admin: 05/05/19 10:02 Dose: 25 mg Documented by: Bisacodyl (Dulcolax) 10 mg ND Q2-3DAYS PRN PRN Reason: Constipation Budesonide (Pulmicort) 0.5 mg NEB Q12 [facility] Last Admin: 05/06/19 07:39 Dose: 0.5 mg Documented by: Docusate Sodium (Colace) 100 mg PO BID [facility] Last Admin: 05/05/19 21:31 Dose: Not Given Documented by: Fluoxetine HCl (Prozac) 20 mg PO HS [facility] Last Admin: 05/05/19 21:30 Dose: 20 mg Documented by: Furosemide (Lasix) 20 mg IV Q8 [facility] Last Admin: 05/06/19 06:06 Dose: 20 mg Documented by: Heparin Sodium (Porcine) (Heparin) 5,000 unit SQ Q12 [facility] Last Admin: 05/05/19 21:30 Dose: 5,000 unit Documented by: Norepinephrine Bitartrate 8 mg (/ Sodium Chloride) 250 mls @ 18.75 mls/hr IV Q14H PRN; Protocol PRN Reason: Hypotension Acetaminophen (Ofirmev) 650 mg in 65 mls @ 130 mls/hr IV Q6HP PRN; Protocol PRN Reason: Per Pain Protocol/Fever > 101 Magnesium Sulfate (Magnesium Sulfate) 2 gm in 50 mls @ 50 mls/hr IV UD PRN PRN Reason: MG = or < 1.7 Last Admin: 05/05/19 08:38 Dose: 50 mls/hr Documented by: Piperacillin Sod/Tazobactam (Sod 3.375 gm/ Dextrose) 50 mls @ 100 mls/hr IV Q6H [facility]; Protocol Last Infusion: 05/06/19 08:02 Dose: Infused Documented by: Sodium Chloride (Sodium Chloride 0.9%) 1,000 mls @ 0 mls/hr IV .Q0M [facility] Azithromycin 500 mg/ Dextrose 250 mls @ 250 mls/hr IV Q24H [facility]; Protocol Stop: 05/07/19 10:59 Last Admin: 05/05/19 10:02 Dose: 250 mls/hr Documented by: Iron Carb/Multivit/[place]/Folic Acid (Multivitamin W/Minerals) 1 tab PO DAILY [facility] Last Admin: 05/05/19 08:26 Dose: 1 tab Documented by: Isosorbide Mononitrate (Imdur) 120 mg PO DAILY [facility] Last Admin: 05/05/19 10:03 Dose: 120 mg Documented by: Lisinopril (Zestril) 2.5 mg PO DAILY [facility] Last Admin: 05/05/19 10:04 Dose: 2.5 mg Documented by: Lorazepam (Ativan) 0.5 - 2 mg IV Q2HP PRN PRN Reason: ANXIETY/SEDATION Last Admin: 05/05/19 10:14 Dose: 1 mg Documented by: Melatonin (Melatonin 3mg Tablet) 3 mg PO HSP PRN PRN Reason: Insomnia Methylprednisolone Sodium Succinate (Solu-Medrol) 60 mg IV Q12 [facility] Nitroglycerin (Nitrostat) 0.4 mg SL Q5M PRN PRN Reason: Chest Pain Omeprazole (Prilosec) 20 mg PO ACB [facility] Last Admin: 05/05/19 07:08 Dose: 20 mg Documented by: Ondansetron HCl (Zofran) 4 mg IV Q4-6HP PRN; Protocol PRN Reason: Nausea And Vomiting Budesonide/Formoterol Fumarate [Symbicort] 160-4.5 Mcg Inhaler 2 dose INH BID [facility] Last Admin: 05/05/19 21:30 Dose: Not Given Documented by: Polyethylene Glycol (Miralax) 17 gm PO DAILYP PRN PRN Reason: Constipation Potassium Chloride (Klor-Con) 40 meq PO DAILYP PRN PRN Reason: K+ < 3.5 Quetiapine Fumarate (Seroquel) 100 mg PO BID [facility] Last Admin: 05/05/19 21:30 Dose: 100 mg Documented by: Senna/Docusate Sodium (Senna Plus Tablet) 1 tab PO [facility] Last Admin: 05/05/19 21:30 Dose: Not Given Documented by: Simvastatin (Zocor) 10 mg PO [facility] Last Admin: 05/05/19 21:30 Dose: 10 mg Documented by: Sodium Chloride (Saline Flush) 10 ml IV Q8 [facility] Last Admin: 05/06/19 06:06 Dose: 10 ml Documented by: Medical - PN: A/P - Time Spent With Patient Total time spent is greater than 50% in coordination of care (as documented) at patient's floor/unit and/or counseling patient: 25 - 35 minutes (1) Acute and chronic respiratory failure with hypoxia Status: Acute Assessment and plan: * Acute respiratory failure with hypoxia-secondary to combination of pneumonia/COPD exacerbation/CHF, interval worsening noted on chest imaging. Continue as needed noninvasive ventilation/submental oxygen. Currently on 4 L oxygen. * Left upper lobe pneumonia clinically improving on antibiotic coverage * COPD exacerbation secondary above continue bronc hodilators/steroids/supplemental oxygen. Lower IV Solu-Medrol * Hypertension restarted on ESTELA inhibitor/atenolol/isosorbide until hypotension resolves * History of CAD now back on isosorbide/ESTELA inhibitor/statin * Anxiety disorder continue fluoxetine/olanzapine * GERD continue PPI * DJD continue home dose hydrocodone * History of smoking-willing to quit. Nicotine patch * Full code * Prophylaxis heparin Plan * Continue IV steroids/diuretics * Wean BiPAP as tolerated * Continue antibiotic coverage * PT OT nutrition support Current Visit: Yes
[2019-05-06] MEDS: ISOSORBIDE MONONITRATE 60 MG TAB.XL.24H PO SCH (09:47)
[2019-05-06] MEDS: ATENOLOL 25 MG TABLET PO SCH (09:48)
[2019-05-06] MEDS: QUEtiapine 100 MG TABLET PO SCH ×2 (09:48→21:40)
[2019-05-06] MEDS: MULTIVIT,THER IRON,CA,FA & MIN 1 TABLET PO SCH (09:48)
[2019-05-06] MEDS: LISINOPRIL 5 MG TABLET PO SCH (09:49)
[2019-05-06] MEDS: HEPARIN 5,000 UNIT/ML VIAL SQ SCH ×2 (09:51→21:25)
[2019-05-06] MEDS: methylPREDNISolone SOD SUCC 125 MG/2 ML VIAL IV SCH ×2 (09:52→21:25)
[2019-05-06] MEDS: LORazepam 2 MG/ML VIAL IV PRN ×2 (09:56→21:27)
[2019-05-06] MEDS: AZITHROMYCIN 500 MG in DEXTROSE 5% IN WATER 250 ML IV SCH (09:56)
[2019-05-06] MEDS: Budesonide/Formoterol Fumarate [Symbicort] 160-4.5 mcg Inhaler INH SCH ×2 (09:57→21:25)
[2019-05-06] MEDS: DOCUSATE SODIUM 100 MG CAPSULE PO SCH ×2 (09:57→21:25)
[2019-05-06] MEDS: FLUoxetine HCL 20 MG CAPSULE PO SCH (21:24)
[2019-05-06] MEDS: SIMVASTATIN 10 MG TABLET PO SCH (21:24)
[2019-05-06] MEDS: SENNOSIDES/DOCUSATE SODIUM 1 TAB TABLET PO SCH (21:25)
[2019-05-07] MEDS: PIPERACILLIN SODIUM/TAZOBACTAM 3.375 GM in DEXTROSE 5% IN WATER 50 ML IV SCH ×4 (00:49→17:40)
[2019-05-07] MEDS: IPRATROPIUM/ALBUTEROL 3 ML AMPUL.NEB NEB SCH ×7 (00:50→22:55)
[2019-05-07] MEDS: FUROSEMIDE 20 MG/2 ML VIAL IV SCH ×3 (06:01→21:25)
[2019-05-07] MEDS: LORazepam 2 MG/ML VIAL IV PRN (06:01)
[2019-05-07] MEDS: HYDROcodone/APAP 10/325MG TABLET PO PRN ×3 (06:02→21:58)
[2019-05-07] MEDS: 0.9 % SODIUM CHLORIDE 10 ML SYRINGE IV SCH ×3 (06:02→21:26)
[2019-05-07 06:47] LABS: Hematocrit 36.4 % (40.1-51.0); Hemoglobin 11.5 g/dL (13.7-17.5); Mean Cell Volume 103.7 fL (80.0-100.0); Mean Corpuscular HGB Conc 31.6 g/dL (31.0-36.0); Mean Platelet Volume 9.6 fL (7.4-10.4); Platelet Count 191 K/mcL (140-440); RBC 3.51 M/mcL (4.63-6.08); Red Cell Distribution Width 13.2 % (11.5-14.5); WBC 8.7 K/mcL (4.50-11.00)
[2019-05-07 07:03] LABS: ALT/SGPT 60 U/l (0-40); AST/SGOT 9 U/l (0-37); Albumin 3.6 gm/dL (3.2-5.2); Albumin/Globulin Ratio 1.8 (1.0-2.3); Alkaline Phosphatase 69 U/L (39-117); Bilirubin,Direct < 0.2 mg/dL (0.0-0.3); Bilirubin,Total 0.3 mg/dL (0.0-1.0); Blood Urea Nitrogen 31 mg/dl (8-23); Calcium 9.2 mg/dl (8.6-10.4); Carbon Dioxide 29 mmol/L (22-30); Chloride 96 mmol/L (96-108); Glomerular Filtration Rate 92; Glucose 156 mg/dL (70-105); Lactate Dehydrogenase 204 U/L (94-250); Phosphorous 3.6 mg/dL (2.7-4.5); Triglycerides 202 mg/dl (<150); Uric Acid 2.2 mg/dL (2.5-8.0)
[2019-05-07] MEDS: BUDESONIDE 0.5 MG/2 ML AMPUL.NEB NEB SCH ×2 (07:38→18:43)
[2019-05-07 07:55] LABS: Anisocytosis 1+ (NONE SEEN); Lymphocytes % 3 % (15-49); Macrocytosis 1+ (NONE SEEN); Metamyelocytes % 3 % (0-0); Monocytes % (Manual) 2 % (1-12); Platelet Estimate NORMAL (NORMAL); RBC Morphology ABNORM (NORMAL); Segmented Neutrophils % 92 % (38-78)
[2019-05-07] MEDS: HEPARIN 5,000 UNIT/ML VIAL SQ SCH ×2 (07:58→21:26)
[2019-05-07] MEDS: methylPREDNISolone SOD SUCC 125 MG/2 ML VIAL IV SCH ×2 (07:58→21:26)
[2019-05-07] MEDS: ISOSORBIDE MONONITRATE 60 MG TAB.XL.24H PO SCH (07:59)
[2019-05-07] MEDS: ATENOLOL 25 MG TABLET PO SCH (07:59)
[2019-05-07] MEDS: DOCUSATE SODIUM 100 MG CAPSULE PO SCH ×2 (07:59→21:25)
[2019-05-07] MEDS: QUEtiapine 100 MG TABLET PO SCH ×2 (07:59→21:25)
[2019-05-07] MEDS: LISINOPRIL 5 MG TABLET PO SCH (07:59)
[2019-05-07] MEDS: MULTIVIT,THER IRON,CA,FA & MIN 1 TABLET PO SCH (07:59)
[2019-05-07] MEDS: Budesonide/Formoterol Fumarate [Symbicort] 160-4.5 mcg Inhaler INH SCH ×2 (08:00→21:14)
[2019-05-07] MEDS: OMEPRAZOLE 20 MG CAPSULE PO SCH (08:00)
[2019-05-07] MEDS: AZITHROMYCIN 500 MG in DEXTROSE 5% IN WATER 250 ML IV SCH (09:42)
--- NOTE | 2019-05-07 10:08 | Internal Med Progress Note ---
Medical - PN: Subj Patient information: Note initiated : 05/07/19 at 10:05 am Service Date, if different from initiated Date: [] Patient: Sam Dexter a 69 y/o M admitted on 05/03/19 for Weakness, Recent Flu, Low BP, SOB. Chief Complaint: [] Interval history: Mr. Dexter is a 69 year old M who was recently hospitalized at [place] and was discharged on April 30 with diagnosis of acute decompensated heart fail ure/COPD exacerbation. Patient was managed on steroids and bronchodilators. Echocardiogram revealed normal left ventricle systolic function. He was discharged home however he never really felt better and has progressive deteriorated with increasing shortness of breath, weakness and lightheadedness he presents to primary care physician's office where he was found to be hypotensive in the 90s with heart rate around 40 requiring 4 L oxygen with sats barely 90s. Patient was thereafter sent to [facility] ER initial work-up was consistent with left upper lobe pneumonia. Patient was started on Levophed in light of systolics dropping to 70s following administration of Lasix in the ER. Hospitalist service was consulted for management of above At the time evaluation patient is alert and respond to commands. He is barely able to talk in full sentences. He is currently on BiPAP. Initial blood gas 7.42/57/36 on 3 L oxygen. Systolics have improved to 90s on Levophed. EKG normal sinus Patient denies fever, chills but endorses to hot flashes, productive sputum. Denies diarrhea dysuria but has noticed a remarkable decline in functionality. Patient lives alone and receives help from a caregiver 2 to 3 hours a day. He risk factors include recent exposure to healthcare facility and recent smoking. Up-to-date on flu and pneumonia vaccine 05/04-patient clinically improving. Overnight on BiPAP. This morning off BiPAP currently on 4 L oxygen. On IV steroids/bronchodilators/antibiotic coverage. Feels weak and tired and fatigued. However able to talk in full sentences. Very fatigued lethargic this morning. Frequently dozing off during conversation. White count 7.3 05/05-patient continues to deteriorate. Worsening chest infiltrates. On BiPAP. Pulmonary edema noted. Started on diuretics. Continue antibiotic coverage. White count up at 14.9, 90% neutrophils. Recheck ABG/chest imaging a.m. 05/06-patient remains very wheezy and short of breath however feels better since previous day. Diuresing gradually. On antibiotic coverage for chest infiltrate. White count downtrending. Methylprednisolone lowered. Continue PT OT/breathing treatments. Continue nutrition support. Overall long-term prognosis poor in the setting of advanced COPD 05/07-patient overnight on BiPAP. However clinically improving. Diuresing well. Continue antibiotics/bronchodilators and diuretics. On free water restriction. Continue PT OT/nutrition support. Gradual recovery noted. - Constitutional Vitals: Vital Signs Temp Pulse Resp BP Pulse Ox 97.4 F 90 18 126/73 98 05/07/19 08:00 05/07/19 08:00 05/07/19 08:00 05/07/19 08:00 05/07/19 08:00 Period Temp Pulse Resp BP Sys/Nuñez Pulse Ox Last 24 Hr 97.4 F-98.2 F 69-110 -20 86-126/58-78 89-98 Intake and Output 05/06/19 05/07/19 05/07/19 21:59 05:59 13:59 Intake Total 340 50 300 Output Total 1700 975 Balance -1360 50 -675 Weight 171 lb Intake & Output: Intake & Output 05/06/19 05/07/19 05/07/19 21:59 05:59 13:59 Intake Total 340 50 300 Output Total 1700 975 Balance -1360 50 -675 Weight 171 lb Intake: IV 100 50 300 Zithromax 500 mg In Dextrose 5% 250 in Water 250 ml @ 250 mls/hr IV Q24H [facility] Rx#:[id number] Zosyn 3.375 gm In Dextrose 5% 50 50 50 in Water 50 ml @ 100 mls/hr IV Q6H [facility] Rx#:[id number] Oral 240 Output: Void Amount 1700 975 Other: Urine Appearance Clear Clear Urine Color Bright Yellow Pale Urine Odor Normal Normal Stool Color Bright Red Blood Stool Consistency Normal for Patient # Bowel Movements 1 General appearance: moderate distress (Improved work of breathing) Exam: Alert oriented Anxious Labored breathing On BiPAP Had a restful night Medical - PN: Obj Da - Labs CBC & Chem 7: 05/07/19 04:58 05/07/19 04:58 Labs: Abnormal Lab Results 05/07/19 05/07/1920 04:58 04:58 05:42 WBC RBC 3.51 L Hgb 11.5 L Hct 36.4 L MCV 103.7 H Gran % Lymph % (Auto) Gran # Lymph # (Auto) Seg Neutrophils % 92 H Lymphocytes % 3 L Metamyelocytes % 3 H Myelocytes % RBC Morphology Abnorm A Anisocytosis 1+ A Macrocytosis 1+ A BUN 31 H 27 H Glucose 156 H 125 H Uric Acid 2.2 L 1.6 L Phosphorus 2.4 L GGT 79 H 63 H ALT 60 H 45 H Total Creatine Kinase Total Protein 5.6 L 5.4 L Globulin 2.0 L 2.1 L Triglycerides 202 H 220 H 05/06/19 05/05/19 05/05/19 05:42 05:50 05:50 WBC 12.3 H 14.9 H RBC 3.36 L 3.38 L Hgb 11.1 L 11.3 L Hct 34.4 L 34.8 L MCV 102.4 H 103.0 H Gran % Lymph % (Auto) Gran # Lymph # (Auto) Seg Neutrophils % 90 H 90 H Lymphocytes % 3 L 4 L Metamyelocytes % Myelocytes % 3 H RBC Morphology Abnorm A Abnorm A Anisocytosis Macrocytosis 1+ A 1+ A BUN 26 H Glucose 186 H Uric Acid 1.7 L Phosphorus 2.1 L GGT 63 H ALT 48 H Total Creatine Kinase Total Protein 5.5 L Globulin Triglycerides 185 H 05/04/19 05/04/19 18:30 18:30 WBC 11.9 H RBC 3.53 L Hgb 11.8 L Hct 35.8 L MCV 101.4 H Gran % 94.7 H Lymph % (Auto) 1.7 L Gran # 11.26 H Lymph # (Auto) 0.20 L Seg Neutrophils % Lymphocytes % Metamyelocytes % Myelocytes % RBC Morphology Anisocytosis Macrocytosis BUN Glucose 207 H Uric Acid Phosphorus GGT ALT 55 H Total Creatine Kinase 19 L Total Protein Globulin 2.1 L Triglycerides Meds: Medications Acetaminophen (Tylenol) 650 mg PO Q4-6HP PRN; Protocol PRN Reason: Per Pain Protocol/Fever > 101 Hydrocodone Bitart/Acetaminophen ([place] 10/325mg) 1 tab PO Q4HP PRN; Protocol PRN Reason: Pain Last Admin: 05/07/19 06:02 Dose: 1 tab Documented by: Albuterol/Ipratropium (Duoneb) 3 ml NEB Q4HRT [facility] Last Admin: 05/07/19 07:38 Dose: 3 ml Documented by: Atenolol (Tenormin) 25 mg PO DAILY [facility] Last Admin: 05/07/19 07:59 Dose: 25 mg Documented by: Bisacodyl (Dulcolax) 10 mg GA Q2-3DAYS PRN PRN Reason: Constipation Budesonide (Pulmicort) 0.5 mg NEB Q12 [facility] Last Admin: 05/07/19 07:38 Dose: 0.5 mg Documented by: Docusate Sodium (Colace) 100 mg PO BID [facility] Last Admin: 05/07/19 07:59 Dose: 100 mg Documented by: Fluoxetine HCl (Prozac) 20 mg PO HS [facility] Last Admin: 05/06/19 21:24 Dose: 20 mg Documented by: Furosemide (Lasix) 20 mg IV Q8 [facility] Last Admin: 05/07/19 06:01 Dose: 20 mg Documented by: Heparin Sodium (Porcine) (Heparin) 5,000 unit SQ Q12 [facility] Last Admin: 05/07/19 07:58 Dose: 5,000 unit Documented by: Norepinephrine Bitartrate 8 mg (/ Sodium Chloride) 250 mls @ 18.75 mls/hr IV Q14H PRN; Protocol PRN Reason: Hypotension Acetaminophen (Ofirmev) 650 mg in 65 mls @ 130 mls/hr IV Q6HP PRN; Protocol PRN Reason: Per Pain Protocol/Fever > 101 Magnesium Sulfate (Magnesium Sulfate) 2 gm in 50 mls @ 50 mls/hr IV UD PRN PRN Reason: MG = or < 1.7 Last Infusion: 05/06/19 19:37 Dose: Infused Documented by: Piperacillin Sod/Tazobactam (Sod 3.375 gm/ Dextrose) 50 mls @ 100 mls/hr IV Q6H [facility]; Protocol Last Infusion: 05/07/19 07:06 Dose: Infused Documented by: Sodium Chloride (Sodium Chloride 0.9%) 1,000 mls @ 0 mls/hr IV .Q0M [facility] Azithromycin 500 mg/ Dextrose 250 mls @ 250 mls/hr IV Q24H [facility]; Protocol Stop: 05/07/19 10:59 Last Admin: 05/07/19 09:42 Dose: 250 mls/hr Documented by: Iron Carb/Multivit/Rn [employer]/Folic Acid (Multivitamin W/Minerals) 1 tab PO DAILY [facility] Last Admin: 05/07/19 07:59 Dose: 1 tab Documented by: Isosorbide Mononitrate (Imdur) 120 mg PO DAILY [facility] Last Admin: 05/07/19 07:59 Dose: 120 mg Documented by: Lisinopril (Zestril) 2.5 mg PO DAILY [facility] Last Admin: 05/07/19 07:59 Dose: 2.5 mg Documented by: Lorazepam (Ativan) 0.5 - 2 mg IV Q2HP PRN PRN Reason: ANXIETY/SEDATION Last Admin: 05/07/19 06:01 Dose: 0.5 mg Documented by: Melatonin (Melatonin 3mg Tablet) 3 mg PO HSP PRN PRN Reason: Insomnia Methylprednisolone Sodium Succinate (Solu-Medrol) 60 mg IV Q12 [facility] Last Admin: 05/07/19 07:58 Dose: 60 mg Documented by: Nitroglycerin (Nitrostat) 0.4 mg SL Q5M PRN PRN Reason: Chest Pain Omeprazole (Prilosec) 20 mg PO ACB [facility] Last Admin: 05/07/19 08:00 Dose: 20 mg Documented by: Ondansetron HCl (Zofran) 4 mg IV Q4-6HP PRN; Protocol PRN Reason: Nausea And Vomiting Budesonide/Formoterol Fumarate [Symbicort] 160-4.5 Mcg Inhaler 2 dose INH BID [facility] Last Admin: 05/07/19 08:00 Dose: Not Given Documented by: Polyethylene Glycol (Miralax) 17 gm PO DAILYP PRN PRN Reason: Constipation Potassium Chloride (Klor-Con) 40 meq PO DAILYP PRN PRN Reason: K+ < 3.5 Quetiapine Fumarate (Seroquel) 100 mg PO BID [facility] Last Admin: 05/07/19 07:59 Dose: 100 mg Documented by: Senna/Docusate Sodium (Senna Plus Tablet) 1 tab PO [facility] Last Admin: 05/06/19 21:25 Dose: Not Given Documented by: Simvastatin (Zocor) 10 mg PO [facility] Last Admin: 05/06/19 21:24 Dose: 10 mg Documented by: Sodium Chloride (Saline Flush) 10 ml IV Q8 [facility] Last Admin: 05/07/19 06:02 Dose: 10 ml Documented by: Medical - PN: A/P - Time Spent With Patient Total time spent is greater than 50% in coordination of care (as documented) at patient's floor/unit and/or counseling patient: Greater than 35 minutes (Critical care time) (1) Acute and chronic respiratory failure with hypoxia Status: Acute Assessment and plan: * Acute respiratory failure with hypoxia-secondary to combination of pneumonia/COPD exacerbation/CHF, interval worsening noted on chest imaging. Continue as needed noninvasive ventilation/submental oxygen. Currently on 4 L oxygen. * Left upper lobe pneumonia clinically improving on antibiotic coverage * COPD exacerbation secondary above continue bronchodilators/steroids/supplemental oxygen. On Solu-Medrol * Hypertension continue ESTELA inhibitor/atenolol/isosorbide * History of CAD continue isosorbide/ESTELA inhibitor/statin * Anxiety disorder continue fluoxetine/olanzapine * GERD continue PPI * DJD continue home dose hydrocodone * History of smoking-willing to quit. Nicotine patch * Full code * Prophylaxis heparin Plan * Continue IV steroids/diuretics * Wean BiPAP as tolerated * Repeat chest imaging in 24 hours to assess response to diuretics * Continue antibiotic coverage * PT OT nutrition support * Discharge planning Current Visit: Yes
--- NOTE | 2019-05-07 10:42 | XRay Report ---
CLINICAL INFORMATION:Congestive heart failure TECHNIQUE: AP portable upright chest x-ray COMPARISON: Previous chest x-rays dated 05/05/2019, 05/03/2019 FINDINGS:Chest x-ray appears improved. There is borderline cardiomegaly. Pulmonary vascularity remains prominent but there is no definite interstitial edema. No focal pulmonary parenchymal infiltrate or mass. No evidence on frontal view for significant pleural effusion. IMPRESSION: Improved chest x-ray Interpreted and Authenticated by: Elliot Tavera 05/07/19
[2019-05-07] MEDS: FLUoxetine HCL 20 MG CAPSULE PO SCH (21:25)
[2019-05-07] MEDS: SIMVASTATIN 10 MG TABLET PO SCH (21:25)
[2019-05-07] MEDS: SENNOSIDES/DOCUSATE SODIUM 1 TAB TABLET PO SCH (21:25)
[2019-05-08] MEDS: PIPERACILLIN SODIUM/TAZOBACTAM 3.375 GM in DEXTROSE 5% IN WATER 50 ML IV SCH ×4 (00:08→18:05)
[2019-05-08] MEDS: IPRATROPIUM/ALBUTEROL 3 ML AMPUL.NEB NEB SCH ×6 (04:29→22:58)
[2019-05-08] MEDS: FUROSEMIDE 20 MG/2 ML VIAL IV SCH ×3 (05:31→21:44)
[2019-05-08] MEDS: OMEPRAZOLE 20 MG CAPSULE PO SCH (05:31)
[2019-05-08] MEDS: HYDROcodone/APAP 10/325MG TABLET PO PRN ×4 (05:31→21:45)
[2019-05-08] MEDS: 0.9 % SODIUM CHLORIDE 10 ML SYRINGE IV SCH ×3 (05:32→21:59)
[2019-05-08 06:33] LABS: Hematocrit 38.4 % (40.1-51.0); Mean Cell Volume 104.1 fL (80.0-100.0); Mean Corpuscular HGB Conc 31.3 g/dL (31.0-36.0); Mean Platelet Volume 9.7 fL (7.4-10.4); Platelet Count 193 K/mcL (140-440); RBC 3.69 M/mcL (4.63-6.08); Red Cell Distribution Width 13.2 % (11.5-14.5); WBC 10.8 K/mcL (4.50-11.00)
[2019-05-08 07:12] LABS: ALT/SGPT 58 U/l (0-40); AST/SGOT 9 U/l (0-37); Albumin 3.9 gm/dL (3.2-5.2); Albumin/Globulin Ratio 1.9 (1.0-2.3); Alkaline Phosphatase 66 U/L (39-117); Bilirubin,Direct < 0.2 mg/dL (0.0-0.3); Bilirubin,Total 0.3 mg/dL (0.0-1.0); Blood Urea Nitrogen 30 mg/dl (8-23); Calcium 9.3 mg/dl (8.6-10.4); Carbon Dioxide 30 mmol/L (22-30); Globulin 2.1 gm/dL (2.2-3.7); Glomerular Filtration Rate 88; Glucose 136 mg/dL (70-105); Lactate Dehydrogenase 216 U/L (94-250); Phosphorous 3.7 mg/dL (2.7-4.5); Triglycerides 157 mg/dl (<150)
[2019-05-08 07:17] LABS: Chloride 95 mmol/L (96-108)
[2019-05-08] MEDS: BUDESONIDE 0.5 MG/2 ML AMPUL.NEB NEB SCH ×2 (07:29→19:16)
[2019-05-08 07:33] LABS: Band Neutrophils % 1 % (0-10); Lymphocytes % 3 % (15-49); Monocytes % (Manual) 3 % (1-12); Platelet Estimate NORMAL (NORMAL); RBC Morphology NORMAL (NORMAL); Segmented Neutrophils % 93 % (38-78)
[2019-05-08] MEDS: Budesonide/Formoterol Fumarate [Symbicort] 160-4.5 mcg Inhaler INH SCH ×2 (08:46→21:46)
[2019-05-08] MEDS: ISOSORBIDE MONONITRATE 60 MG TAB.XL.24H PO SCH (09:47)
[2019-05-08] MEDS: LISINOPRIL 5 MG TABLET PO SCH (09:47)
[2019-05-08] MEDS ORDERED: METOPROLOL TARTRATE 5 MG/5 ML VIAL IV STA (09:48)
--- NOTE | 2019-05-08 10:06 | Internal Med Progress Note ---
Medical - PN: Subj Patient information: Note initiated : 05/08/19 at 10:03 am Service Date, if different from initiated Date: [] Patient: Sam Dexter a 69 y/o M admitted on 05/03/19 for Weakness, Recent Flu, Low BP, SOB. Chief Complaint: [] Interval history: Mr. Dexter is a 69 year old M who was recently hospitalized at [place] and was discharged on April 30 with diagnosis of acute decompensated heart fail ure/COPD exacerbation. Patient was managed on steroids and bronchodilators. Echocardiogram revealed normal left ventricle systolic function. He was discharged home however he never really felt better and has progressive deteriorated with increasing shortness of breath, weakness and lightheadedness he presents to primary care physician's office where he was found to be hypotensive in the 90s with heart rate around 40 requiring 4 L oxygen with sats barely 90s. Patient was thereafter sent to [facility] ER initial work-up was consistent with left upper lobe pneumonia. Patient was started on Levophed in light of systolics dropping to 70s following administration of Lasix in the ER. Hospitalist service was consulted for management of above At the time evaluation patient is alert and respond to commands. He is barely able to talk in full sentences. He is currently on BiPAP. Initial blood gas 7.42/57/36 on 3 L oxygen. Systolics have improved to 90s on Levophed. EKG normal sinus Patient denies fever, chills but endorses to hot flashes, productive sputum. Denies diarrhea dysuria but has noticed a remarkable decline in functionality. Patient lives alone and receives help from a caregiver 2 to 3 hours a day. He risk factors include recent exposure to healthcare facility and recent smoking. Up-to-date on flu and pneumonia vaccine 05/04-patient clinically improving. Overnight on BiPAP. This morning off BiPAP currently on 4 L oxygen. On IV steroids/bronchodilators/antibiotic coverage. Feels weak and tired and fatigued. However able to talk in full sentences. Very fatigued lethargic this morning. Frequently dozing off during conversation. White count 7.3 05/05-patient continues to deteriorate. Worsening chest infiltrates. On BiPAP. Pulmonary edema noted. Started on diuretics. Continue antibiotic coverage. White count up at 14.9, 90% neutrophils. Recheck ABG/chest imaging a.m. 05/06-patient remains very wheezy and short of breath however feels better since previous day. Diuresing gradually. On antibiotic coverage for chest infiltrate. White count downtrending. Methylprednisolone lowered. Continue PT OT/breathing treatments. Continue nutrition support. Overall long-term prognosis poor in the setting of advanced COPD 05/07-patient overnight on BiPAP. However clinically improving. Diuresing well. Continue antibiotics/bronchodilators and diuretics. On free water restriction. Continue PT OT/nutrition support. Gradual recovery noted. 05/08-patient diuresed well overnight. Off BiPAP however this morning into A. fib with RVR. Started on metoprolol and if inadequate rate response start diltiazem drip. Continue existing treatments. Denies diaphoresis but complains of minimal chest pressure during tachycardia up to 170. EKG reviewed, interval chest imaging improved - Constitutional Vitals: Vital Signs Temp Pulse Resp BP Pulse Ox 97.8 F 88 18 132/74 96 05/08/19 08:00 05/08/19 08:00 05/08/19 08:00 05/08/19 08:00 05/08/19 08:00 Period Temp Pulse Resp BP Sys/Nuñez Pulse Ox Last 24 Hr 97.3 F-98.5 F 73-100 14-24 93-142/53-77 93-98 Intake and Output 05/07/19 05/08/19 05/08/19 21:59 05:59 13:59 Intake Total 50 370 50 Output Total 925 1400 550 Balance -875 -1030 -500 Weight 170 lb 3 oz Intake & Output: Intake & Output 05/07/19 05/08/19 05/08/19 21:59 05:59 13:59 Intake Total 50 370 50 Output Total 925 1400 550 Balance -875 -1030 -500 Weight 170 lb 3 oz Intake: IV 50 50 50 Zosyn 3.375 gm In Dextrose 5% 50 50 50 in Water 50 ml @ 100 mls/hr IV Q6H [facility] Rx#:[id number] Oral 320 Output: Void Amount 925 1400 550 Other: Urine Appearance Clear Urine Color Bright Yellow Urine Odor Normal General appearance: no acute distress Exam: Alert oriented Expiratory rhonchi Late inspiratory crackles A. fib RVR rate 1 50-1 70 Anxious no lymphedema Medical - PN: Obj Da - Labs CBC & Chem 7: 02/17/20 04:40 05/08/19 04:40 Labs: Abnormal Lab Results 05/08/19 05/08/19 05/07/19 04:40 04:40 04:58 WBC RBC 3.69 L Hgb 12.0 L Hct 38.4 L MCV 104.1 H Seg Neutrophils % 93 H Lymphocytes % 3 L Metamyelocytes % RBC Morphology Anisocytosis Macrocytosis Chloride 95 L BUN 30 H 31 H Glucose 136 H 156 H Uric Acid 2.0 L 2.2 L Phosphorus GGT 76 H 79 H ALT 58 H 60 H Total Protein 5.6 L Globulin 2.1 L 2.0 L Triglycerides 157 H 202 H 05/07/19 05/06/19 05/06/19 04:58 05:42 05:42 WBC 12.3 H RBC 3.51 L 3.36 L Hgb 11.5 L 11.1 L Hct 36.4 L 34.4 L MCV 103.7 H 102.4 H Seg Neutrophils % 92 H 90 H Lymphocytes % 3 L 3 L Metamyelocytes % 3 H RBC Morphology Abnorm A Abnorm A Anisocytosis 1+ A Macrocytosis 1+ A 1+ A Chloride BUN 27 H Glucose 125 H Uric Acid 1.6 L Phosphorus 2.4 L GGT 63 H ALT 45 H Total Protein 5.4 L Globulin 2.1 L Triglycerides 220 H Meds: Medications Acetaminophen (Tylenol) 650 mg PO Q4-6HP PRN; Protocol PRN Reason: Per Pain Protocol/Fever > 101 Hydrocodone Bitart/Acetaminophen ([place] 10/325mg) 1 tab PO Q4HP PRN; Protocol PRN Reason: Pain Last Admin: 05/08/19 05:31 Dose: 1 tab Documented by: Albuterol/Ipratropium (Duoneb) 3 ml NEB Q4HRT [facility] Last Admin: 05/08/19 07:29 Dose: 3 ml Documented by: Atenolol (Tenormin) 25 mg PO DAILY [facility] Last Admin: 05/07/19 07:59 Dose: 25 mg Documented by: Bisacodyl (Dulcolax) 10 mg [place] Q2-3DAYS PRN PRN Reason: Constipation Budesonide (Pulmicort) 0.5 mg NEB Q12 [facility] Last Admin: 05/08/19 07:29 Dose: 0.5 mg Documented by: Docusate Sodium (Colace) 100 mg PO BID [facility] Last Admin: 05/07/19 21:25 Dose: 100 mg Documented by: Fluoxetine HCl (Prozac) 20 mg PO HS [facility] Last Admin: 05/07/19 21:25 Dose: 20 mg Documented by: Furosemide (Lasix) 20 mg IV Q8 [facility] Last Admin: 05/08/19 05:31 Dose: 20 mg Documented by: Heparin Sodium (Porcine) (Heparin) 5,000 unit SQ Q12 [facility] Last Admin: 05/07/19 21:26 Dose: 5,000 unit Documented by: Norepinephrine Bitartrate 8 mg (/ Sodium Chloride) 250 mls @ 18.75 mls/hr IV Q14H PRN; Protocol PRN Reason: Hypotension Acetaminophen (Ofirmev) 650 mg in 65 mls @ 130 mls/hr IV Q6HP PRN; Protocol PRN Reason: Per Pain Protocol/Fever > 101 Magnesium Sulfate (Magnesium Sulfate) 2 gm in 50 mls @ 50 mls/hr IV UD PRN PRN Reason: MG = or < 1.7 Last Infusion: 05/06/19 19:37 Dose: Infused Documented by: Piperacillin Sod/Tazobactam (Sod 3.375 gm/ Dextrose) 50 mls @ 100 mls/hr IV Q6H [facility]; Protocol Last Infusion: 05/08/19 06:05 Dose: Infused Documented by: Sodium Chloride (Sodium Chloride 0.9%) 1,000 mls @ 0 mls/hr IV .Q0M [facility] Iron Carb/Multivit/[place]/Folic Acid (Multivitamin W/Minerals) 1 tab PO DAILY [facility] Last Admin: 05/07/19 07:59 Dose: 1 tab Documented by: Isosorbide Mononitrate (Imdur) 120 mg PO DAILY [facility] Last Admin: 05/08/19 09:47 Dose: Not Given Documented by: Lisinopril (Zestril) 2.5 mg PO DAILY [facility] Last Admin: 05/08/19 09:47 Dose: Not Given Documented by: Lorazepam (Ativan) 0.5 - 2 mg IV Q2HP PRN PRN Reason: ANXIETY/SEDATION Last Admin: 05/07/19 06:01 Dose: 0.5 mg Documented by: Melatonin (Melatonin 3mg Tablet) 3 mg PO HSP PRN PRN Reason: Insomnia Methylprednisolone Sodium Succinate (Solu-Medrol) 60 mg IV Q12 [facility] Last Admin: 05/07/19 21:26 Dose: 60 mg Documented by: Nitroglycerin (Nitrostat) 0.4 mg SL Q5M PRN PRN Reason: Chest Pain Omeprazole (Prilosec) 20 mg PO ACB [facility] Last Admin: 05/08/19 05:31 Dose: 20 mg Documented by: Ondansetron HCl (Zofran) 4 mg IV Q4-6HP PRN; Protocol PRN Reason: Nausea And Vomiting Budesonide/Formoterol Fumarate [Symbicort] 160-4.5 Mcg Inhaler 2 dose INH BID [facility] Last Admin: 05/08/19 08:46 Dose: Not Given Documented by: Polyethylene Glycol (Miralax) 17 gm PO DAILYP PRN PRN Reason: Constipation Potassium Chloride (Klor-Con) 40 meq PO DAILYP PRN PRN Reason: K+ < 3.5 Quetiapine Fumarate (Seroquel) 100 mg PO BID [facility] Last Admin: 05/07/19 21:25 Dose: 100 mg Documented by: Senna/Docusate Sodium (Senna Plus Tablet) 1 tab PO [facility] Last Admin: 05/07/19 21:25 Dose: 1 tab Documented by: Simvastatin (Zocor) 10 mg PO [facility] Last Admin: 05/07/19 21:25 Dose: 10 mg Documented by: Sodium Chloride (Saline Flush) 10 ml IV Q8 [facility] Last Admin: 05/08/19 05:32 Dose: 10 ml Documented by: Medical - PN: A/P - Time Spent With Patient Total time spent is greater than 50% in coordination of care (as documented) at patient's floor/unit and/or counseling patient: 25 - 35 minutes (1) Acute and chronic respiratory failure with hypoxia Status: Acute Assessment and plan: * Acute respiratory failure with hypoxia-secondary to combination of pneumonia/COPD exacerbation/CHF, improved on chest serial imaging. Off BiPAP. Continue supplemental oxygen currently on 5 L. * A. fib RVR-continue beta-shawn/diltiazem drip for rate control * Left upper lobe pneumonia clinically improving on antibiotic coverage. Additional 3 days antibiotic * COPD exacerbation secondary above continue bronchodilators/IV steroids/supplemental oxygen. * Hypertension continue ESTELA inhibitor/atenolol/isosorbide * History of CAD continue isosorbide/ESTELA inhibitor/statin * Anxiety disorder continue fluoxetine/olanzapine * GERD continue PPI * DJD continue home dose hydrocodone * History of smoking-willing to quit. Nicotine patch * Full code * Prophylaxis heparin Plan * Rate control measures * EKG/serial chest imaging * Continue IV steroids/diuretics * Wean BiPAP as tolerated * Antibiotic for additional 3 days * PT OT nutrition support * Free water restriction to 1200 cc Current Visit: Yes
[2019-05-08] MEDS: METOPROLOL TARTRATE 5 MG/5 ML VIAL IV SCH ×2 (10:22→10:28)
[2019-05-08] MEDS: methylPREDNISolone SOD SUCC 125 MG/2 ML VIAL IV SCH ×2 (10:45→21:44)
[2019-05-08] MEDS: HEPARIN 5,000 UNIT/ML VIAL SQ SCH ×2 (10:45→21:44)
[2019-05-08] MEDS: DILTIAZEM 125 MG in DEXTROSE 5% IN WATER 100 ML IV SCH ×2 (10:46→18:07)
[2019-05-08] MEDS: DOCUSATE SODIUM 100 MG CAPSULE PO SCH ×2 (10:46→21:45)
[2019-05-08] MEDS: MULTIVIT,THER IRON,CA,FA & MIN 1 TABLET PO SCH (10:46)
[2019-05-08] MEDS: ATENOLOL 25 MG TABLET PO SCH (10:46)
[2019-05-08] MEDS: QUEtiapine 100 MG TABLET PO SCH ×2 (10:48→21:45)
[2019-05-08] MEDS ORDERED: DILTIAZEM 25 MG/5 ML VIAL IV ONE (11:41)
[2019-05-08] MEDS ORDERED: ADENOSINE 3 MG/ML VIAL IV ONE (12:03)
[2019-05-08] MEDS: SENNOSIDES/DOCUSATE SODIUM 1 TAB TABLET PO SCH (21:45)
[2019-05-08] MEDS: FLUoxetine HCL 20 MG CAPSULE PO SCH (21:45)
[2019-05-08] MEDS: LORazepam 2 MG/ML VIAL IV PRN (21:45)
[2019-05-08] MEDS: SIMVASTATIN 10 MG TABLET PO SCH (21:46)
[2019-05-08] MEDS: MELATONIN 3 MG TABLET PO PRN (21:46)
[2019-05-09] MEDS: PIPERACILLIN SODIUM/TAZOBACTAM 3.375 GM in DEXTROSE 5% IN WATER 50 ML IV SCH ×2 (00:30→06:07)
[2019-05-09] MEDS: DILTIAZEM 125 MG in DEXTROSE 5% IN WATER 100 ML IV SCH ×2 (01:48→09:53)
[2019-05-09] MEDS: HYDROcodone/APAP 10/325MG TABLET PO PRN ×4 (03:10→21:45)
[2019-05-09] MEDS: IPRATROPIUM/ALBUTEROL 3 ML AMPUL.NEB NEB SCH ×4 (03:47→15:10)
[2019-05-09] MEDS: 0.9 % SODIUM CHLORIDE 10 ML SYRINGE IV SCH ×3 (06:07→21:26)
[2019-05-09] MEDS: FUROSEMIDE 20 MG/2 ML VIAL IV SCH ×3 (06:08→21:25)
[2019-05-09] MEDS: Budesonide/Formoterol Fumarate [Symbicort] 160-4.5 mcg Inhaler INH SCH ×2 (07:10→21:26)
[2019-05-09] MEDS: BUDESONIDE 0.5 MG/2 ML AMPUL.NEB NEB SCH ×2 (07:27→19:06)
[2019-05-09] MEDS: methylPREDNISolone SOD SUCC 125 MG/2 ML VIAL IV SCH (07:28)
[2019-05-09] MEDS: DOCUSATE SODIUM 100 MG CAPSULE PO SCH ×2 (07:29→21:25)
[2019-05-09] MEDS: MULTIVIT,THER IRON,CA,FA & MIN 1 TABLET PO SCH (07:29)
[2019-05-09] MEDS: OMEPRAZOLE 20 MG CAPSULE PO SCH (07:29)
[2019-05-09] MEDS: HEPARIN 5,000 UNIT/ML VIAL SQ SCH ×2 (07:29→21:25)
[2019-05-09] MEDS: ATENOLOL 25 MG TABLET PO SCH (07:29)
[2019-05-09] MEDS: LISINOPRIL 5 MG TABLET PO SCH (07:35)
[2019-05-09] MEDS: QUEtiapine 100 MG TABLET PO SCH ×2 (07:35→21:25)
[2019-05-09] MEDS: ISOSORBIDE MONONITRATE 60 MG TAB.XL.24H PO SCH (07:35)
--- NOTE | 2019-05-09 10:58 | Internal Med Progress Note ---
Medical - PN: Subj Patient information: Note initiated : 05/09/19 at 10:56 am Service Date, if different from initiated Date: [] Patient: Sam Dexter a 69 y/o M admitted on 05/03/19 for Weakness, Recent Flu, Low BP, SOB. Chief Complaint: [] Interval history: Mr. Dexter is a 69 year old M who was recently hospitalized at [facility] and was discharged on April 30 with diagnosis of acute decompensated heart fail ure/COPD exacerbation. Patient was managed on steroids and bronchodilators. Echocardiogram revealed normal left ventricle systolic function. He was discharged home however he never really felt better and has progressive deteriorated with increasing shortness of breath, weakness and lightheadedness he presents to primary care physician's office where he was found to be hypotensive in the 90s with heart rate around 40 requiring 4 L oxygen with sats barely 90s. Patient was thereafter sent to [facility] ER initial work-up was consistent with left upper lobe pneumonia. Patient was started on Levophed in light of systolics dropping to 70s following administration of Lasix in the ER. Hospitalist service was consulted for management of above At the time evaluation patient is alert and respond to commands. He is barely able to talk in full sentences. He is currently on BiPAP. Initial blood gas 7.42/57/36 on 3 L oxygen. Systolics have improved to 90s on Levophed. EKG normal sinus Patient denies fever, chills but endorses to hot flashes, productive sputum. Denies diarrhea dysuria but has noticed a remarkable decline in functionality. Patient lives alone and receives help from a caregiver 2 to 3 hours a day. He risk factors include recent exposure to healthcare facility and recent smoking. Up-to-date on flu and pneumonia vaccine 05/04-patient clinically improving. Overnight on BiPAP. This morning off BiPAP currently on 4 L oxygen. On IV steroids/bronchodilators/antibiotic coverage. Feels weak and tired and fatigued. However able to talk in full sentences. Very fatigued lethargic this morning. Frequently dozing off during conversation. White count 7.3 05/05-patient continues to deteriorate. Worsening chest infiltrates. On BiPAP. Pulmonary edema noted. Started on diuretics. Continue antibiotic coverage. White count up at 14.9, 90% neutrophils. Recheck ABG/chest imaging a.m. 05/06-patient remains very wheezy and short of breath however feels better since previous day. Diuresing gradually. On antibiotic coverage for chest infiltrate. White count downtrending. Methylprednisolone lowered. Continue PT OT/breathing treatments. Continue nutrition support. Overall long-term prognosis poor in the setting of advanced COPD 2-patient overnight on BiPAP. However clinically improving. Diuresing well. Continue antibiotics/bronchodilators and diuretics. On free water restriction. Continue PT OT/nutrition support. Gradual recovery noted. 05/08-patient diuresed well overnight. Off BiPAP however this morning into A. fib with RVR. Started on metoprolol and if inadequate rate response start diltiazem drip. Continue existing treatments. Denies diaphoresis but complains of minimal chest pressure during tachycardia up to 170. EKG reviewed, interval chest imaging improved 05/09-patient off Cardizem. Converted to sinus. Start Cardizem CD 120. Systolics at goal. Off BiPAP. Currently on baseline oxygen with improved shortness of breath. Transfer to medical floor. Anticipate discharge to SNF in 24 hours. Case management to coordinate SNF placement. - Constitutional Vitals: Vital Signs Temp Pulse Resp BP Pulse Ox 98.1 F 98 H 16 94/64 96 05/09/19 10:01 05/09/19 08:00 05/09/19 10:01 05/09/19 10:01 05/09/19 10:01 Period Temp Pulse Resp BP Sys/Nuñez Pulse Ox Last 24 Hr 97.1 F-98.1 F 85-131 12-30 78-134/54-103 88-100 Intake and Output 05/08/19 05/09/19 05/09/19 21:59 05:59 13:59 Intake Total 1025 290 290 Output Total 600 450 600 Balance 425 -160 -310 Weight 179 lb 4.8 oz Intake & Output: Intake & Output 05/08/19 05/09/19 05/09/19 21:59 05:59 13:59 Intake Total 1025 290 290 Output Total 600 450 600 Balance 425 -160 -310 Weight 179 lb 4.8 oz Intake: IV 185 50 50 Cardizem 125 mg In Dextrose 5% 135 in Water 100 ml @ 5 MG/HR 5 mls /hr IV Q12H [facility] Rx#:[id number] Zosyn 3.375 gm In Dextrose 5% 50 50 50 in Water 50 ml @ 100 mls/hr IV Q6H [facility] Rx#:[id number] Oral 600 240 240 GI Tube Flush 240 Output: Urine Catheter Amount 600 Void Amount 450 600 Other: Meal Breakfast Percent of Meal Consumed 100% Feeding Ability Independent Urine Appearance Clear Clear Clear Urine Color Bright Yellow Bright Yellow Bright Yellow Urine Odor Normal Normal Stool Size Copious Stool Color Brown Stool Consistency Soft General appearance: no acute distress Exam: Alert oriented Nonlabored breathing No anxiety Nondistended abdomen Diminished breath sounds bases Improved expiratory rhonchi Tachycardic sinus Medical - PN: Obj Da - Labs CBC & Chem 7: 05/08/19 04:40 05/08/19 04:40 Labs: Abnormal Lab Results 05/08/19 05/08/19 05/07/19 04:40 04:40 04:58 RBC 3.69 L Hgb 12.0 L Hct 38.4 L MCV 104.1 H Seg Neutrophils % 93 H Lymphocytes % 3 L Metamyelocytes % RBC Morphology Anisocytosis Macrocytosis Chloride 95 L BUN 30 H 31 H Glucose 136 H 156 H Uric Acid 2.0 L 2.2 L GGT 76 H 79 H ALT 58 H 60 H Total Protein 5.6 L Globulin 2.1 L 2.0 L Triglycerides 157 H 202 H 05/07/19 04:58 RBC 3.51 L Hgb 11.5 L Hct 36.4 L MCV 103.7 H Seg Neutrophils % 92 H Lymphocytes % 3 L Metamyelocytes % 3 H RBC Morphology Abnorm A Anisocytosis 1+ A Macrocytosis 1+ A Chloride BUN Glucose Uric Acid GGT ALT Total Protein Globulin Triglycerides Meds: Medications Acetaminophen (Tylenol) 650 mg PO Q4-6HP PRN; Protocol PRN Reason: Per Pain Protocol/Fever > 101 Hydrocodone Bitart/Acetaminophen ([place] 10/325mg) 1 tab PO Q4HP PRN; Protocol PRN Reason: Pain Last Admin: 05/09/19 07:29 Dose: 1 tab Documented by: Albuterol/Ipratropium (Duoneb) 3 ml NEB Q4HRT [facility] Last Admin: 05/09/19 07:27 Dose: 3 ml Documented by: Atenolol (Tenormin) 25 mg PO DAILY [facility] Last Admin: 05/09/19 07:29 Dose: 25 mg Documented by: Bisacodyl (Dulcolax) 10 mg NC Q2-3DAYS PRN PRN Reason: Constipation Budesonide (Pulmicort) 0.5 mg NEB Q12 [facility] Last Admin: 05/09/19 07:27 Dose: 0.5 mg Documented by: Docusate Sodium (Colace) 100 mg PO BID [facility] Last Admin: 05/09/19 07:29 Dose: 100 mg Documented by: Fluoxetine HCl (Prozac) 20 mg PO HS [facility] Last Admin: 05/08/19 21:45 Dose: 20 mg Documented by: Furosemide (Lasix) 20 mg IV Q8 [facility] Last Admin: 05/09/19 06:08 Dose: 20 mg Documented by: Heparin Sodium (Porcine) (Heparin) 5,000 unit SQ Q12 [facility] Last Admin: 05/09/19 07:29 Dose: 5,000 unit Documented by: Norepinephrine Bitartrate 8 mg (/ Sodium Chloride) 250 mls @ 18.75 mls/hr IV Q14H PRN; Protocol PRN Reason: Hypotension Acetaminophen (Ofirmev) 650 mg in 65 mls @ 130 mls/hr IV Q6HP PRN; Protocol PRN Reason: Per Pain Protocol/Fever > 101 Magnesium Sulfate (Magnesium Sulfate) 2 gm in 50 mls @ 50 mls/hr IV UD PRN PRN Reason: MG = or < 1.7 Last Infusion: 05/06/19 19:37 Dose: Infused Documented by: Piperacillin Sod/Tazobactam (Sod 3.375 gm/ Dextrose) 50 mls @ 100 mls/hr IV Q6H [facility]; Protocol Last Infusion: 05/09/19 06:40 Dose: Infused Documented by: Sodium Chloride (Sodium Chloride 0.9%) 1,000 mls @ 0 mls/hr IV .Q0M TAJ Diltiazem HCl 125 mg/ Dextrose 125 mls @ 5 mls/hr IV Q12H [facility]; Protocol Last Admin: 05/09/19 09:53 Dose: Not Given Documented by: Iron Carb/Multivit/Candler/Folic Acid (Multivitamin W/Minerals) 1 tab PO DAILY [facility] Last Admin: 05/09/19 07:29 Dose: 1 tab Documented by: Isosorbide Mononitrate (Imdur) 120 mg PO DAILY [facility] Last Admin: 05/09/19 07:35 Dose: 120 mg Documented by: Lisinopril (Zestril) 2.5 mg PO DAILY [facility] Last Admin: 05/09/19 07:35 Dose: 2.5 mg Documented by: Lorazepam (Ativan) 0.5 - 2 mg IV Q2HP PRN PRN Reason: ANXIETY/SEDATION Last Admin: 05/08/19 21:45 Dose: 0.5 mg Documented by: Melatonin (Melatonin 3mg Tablet) 3 mg PO HSP PRN PRN Reason: Insomnia Last Admin: 05/08/19 21:46 Dose: 3 mg Documented by: Methylprednisolone Sodium Succinate (Solu-Medrol) 60 mg IV Q12 [facility] Last Admin: 05/09/19 07:28 Dose: 60 mg Documented by: Nitroglycerin (Nitrostat) 0.4 mg SL Q5M PRN PRN Reason: Chest Pain Omeprazole (Prilosec) 20 mg PO ACB [facility] Last Admin: 05/09/19 07:29 Dose: 20 mg Documented by: Ondansetron HCl (Zofran) 4 mg IV Q4-6HP PRN; Protocol PRN Reason: Nausea And Vomiting Budesonide/Formoterol Fumarate [Symbicort] 160-4.5 Mcg Inhaler 2 dose INH BID [facility] Last Admin: 05/09/19 07:10 Dose: Not Given Documented by: Polyethylene Glycol (Miralax) 17 gm PO DAILYP PRN PRN Reason: Constipation Last Admin: 05/09/19 07:58 Dose: 17 gm Documented by: Potassium Chloride (Klor-Con) 40 meq PO DAILYP PRN PRN Reason: K+ < 3.5 Quetiapine Fumarate (Seroquel) 100 mg PO BID [facility] Last Admin: 05/09/19 07:35 Dose: 100 mg Documented by: Senna/Docusate Sodium (Senna Plus Tablet) 1 tab PO [facility] Last Admin: 05/08/19 21:45 Dose: 1 tab Documented by: Simvastatin (Zocor) 10 mg PO [facility] Last Admin: 05/08/19 21:46 Dose: 10 mg Documented by: Sodium Chloride (Saline Flush) 10 ml IV Q8 [facility] Last Admin: 05/09/19 06:07 Dose: 10 ml Documented by: Medical - PN: A/P - Time Spent With Patient Total time spent is greater than 50% in coordination of care (as documented) at patient's floor/unit and/or counseling patient: 25 - 35 minutes (1) Acute and chronic respiratory failure with hypoxia Status: Acute Assessment and plan: * Acute respiratory failure with hypoxia-secondary to combination of pneumonia/COPD exacerbation/CHF, improved with aggressive diuresis/antibiotic/noninvasive ventilation. On 4 L oxygen. Transfer to medical floor today. * A flutter RVR-verified following adenosine 6 mg with variable block. Responded to diltiazem. Converted to sinus. Continue beta-shawn/diltiazem CD and if paroxysms occur consider anticoagulation for CVA prophylaxis based on Chads score. * Left upper lobe pneumonia clinically improving on antibiotic coverage. Continue additional 2 days antibiotic * COPD exacerbation secondary above continue bronchodilators/oral steroid/s upplemental oxygen. * Hypertension continue low-dose ESTELA inhibitor/atenolol/isosorbide. Start Card izem CD * History of CAD continue isosorbide/ESTELA inhibitor/statin * Anxiety disorder continue fluoxetine/olanzapine * GERD continue PPI * DJD continue home dose hydrocodone * History of smoking-willing to quit. Nicotine patch * Full code * Prophylaxis heparin Plan * Start Cardizem CD , consider anticoagulation based on Chads score if paroxysms noted * De-escalate to Augmentin, continue additional 2 days * Start oral steroids to continue for 5 days and stop * Transfer to medical floor * Continue diuresis, recommend increasing dose of outpatient diuretics to twice daily * Outpatient pulmonology follow-up * PT OT nutrition support * Continue Free water restriction to 1200 cc * SNF transfer planning per case management * Smoking cessation counseling Current Visit: Yes
[2019-05-09] MEDS ORDERED: DILTIAZEM 125 MG in DEXTROSE 5% IN WATER 100 ML IV PRN (11:15)
[2019-05-09] MEDS ORDERED: DILTIAZEM 120 MG CAP.XL.24H PO ONE (11:37)
[2019-05-09] MEDS: AMOXICILLIN/POTASSIUM CLAV 875 MG TABLET PO SCH (17:54)
[2019-05-09] MEDS ORDERED: IPRATROPIUM/ALBUTEROL 3 ML AMPUL.NEB NEB ONE (19:05)
[2019-05-09] MEDS: FLUoxetine HCL 20 MG CAPSULE PO SCH (21:25)
[2019-05-09] MEDS: MELATONIN 3 MG TABLET PO PRN (21:25)
[2019-05-09] MEDS: SENNOSIDES/DOCUSATE SODIUM 1 TAB TABLET PO SCH (21:25)
[2019-05-09] MEDS: SIMVASTATIN 10 MG TABLET PO SCH (21:25)
[2019-05-09] MEDS: LORazepam 2 MG/ML VIAL IV PRN (21:45)
[2019-05-10] MEDS: IPRATROPIUM/ALBUTEROL 3 ML AMPUL.NEB NEB SCH ×3 (01:02→13:52)
[2019-05-10] MEDS: 0.9 % SODIUM CHLORIDE 10 ML SYRINGE IV SCH (05:45)
[2019-05-10] MEDS: FUROSEMIDE 20 MG/2 ML VIAL IV SCH (05:45)
[2019-05-10] MEDS: BUDESONIDE 0.5 MG/2 ML AMPUL.NEB NEB SCH (07:05)
[2019-05-10 07:16] LABS: Basophils # (Auto) 0.03 K/mcL (0.00-0.30); Basophils % (Auto) 0.3 % (0.0-2.0); Eosinophils # (Auto) 0.01 K/mcL (0.00-0.70); Eosinophils % (Auto) 0.1 % (0.0-7.0); Granulocytes % (Auto) 86.4 % (38.0-78.0); Hematocrit 37.9 % (40.1-51.0); Hemoglobin 12.1 g/dL (13.7-17.5); Lymphocytes # (Auto) 0.71 K/mcL (1.50-4.80); Lymphocytes % (Auto) 6.9 % (15.5-49.0); Mean Cell Volume 102.7 fL (80.0-100.0); Mean Corpuscular HGB Conc 31.9 g/dL (31.0-36.0); Mean Platelet Volume 9.8 fL (7.4-10.4); Monocytes # (Auto) 0.64 K/mcL (0.10-0.90); Monocytes % (Auto) 6.3 % (1.0-12.0); Platelet Count 180 K/mcL (140-440); RBC 3.69 M/mcL (4.63-6.08); Red Cell Distribution Width 13.3 % (11.5-14.5); WBC 10.2 K/mcL (4.50-11.00)
[2019-05-10] MEDS: OMEPRAZOLE 20 MG CAPSULE PO SCH (07:25)
[2019-05-10 07:34] LABS: ALT/SGPT 43 U/l (0-40); AST/SGOT 7 U/l (0-37); Albumin 3.5 gm/dL (3.2-5.2); Albumin/Globulin Ratio 1.8 (1.0-2.3); Alkaline Phosphatase 61 U/L (39-117); Bilirubin,Direct < 0.2 mg/dL (0.0-0.3); Bilirubin,Total 0.3 mg/dL (0.0-1.0); Blood Urea Nitrogen 32 mg/dl (8-23); Calcium 9.3 mg/dl (8.6-10.4); Carbon Dioxide 27 mmol/L (22-30); Globulin 1.9 gm/dL (2.2-3.7); Glomerular Filtration Rate 78; Glucose 132 mg/dL (70-105); Lactate Dehydrogenase 191 U/L (94-250); Phosphorous 3.8 mg/dL (2.7-4.5)
[2019-05-10] MEDS: HYDROcodone/APAP 10/325MG TABLET PO PRN (07:39)
[2019-05-10 07:44] LABS: Chloride 95 mmol/L (96-108); Triglycerides 461 mg/dl (<150); Uric Acid 3.2 mg/dL (2.5-8.0)
[2019-05-10] MEDS ORDERED: predniSONE 20 MG TABLET PO SCH (08:00)
[2019-05-10] MEDS: QUEtiapine 100 MG TABLET PO SCH (08:16)
[2019-05-10] MEDS: LISINOPRIL 5 MG TABLET PO SCH (08:16)
[2019-05-10] MEDS: AMOXICILLIN/POTASSIUM CLAV 875 MG TABLET PO SCH (08:17)
[2019-05-10] MEDS: HEPARIN 5,000 UNIT/ML VIAL SQ SCH (08:17)
[2019-05-10] MEDS: ATENOLOL 25 MG TABLET PO SCH (08:17)
[2019-05-10] MEDS: MULTIVIT,THER IRON,CA,FA & MIN 1 TABLET PO SCH (08:17)
[2019-05-10] MEDS: DOCUSATE SODIUM 100 MG CAPSULE PO SCH (08:17)
[2019-05-10] MEDS: ISOSORBIDE MONONITRATE 60 MG TAB.XL.24H PO SCH (08:17)
[2019-05-10] MEDS: Budesonide/Formoterol Fumarate [Symbicort] 160-4.5 mcg Inhaler INH SCH (08:18)
[2019-05-10] MEDS ORDERED: DILTIAZEM 120 MG CAP.XL.24H PO SCH (09:00)
--- NOTE | 2019-05-10 10:14 | Discharge Summary ---
Medical - DS: Prov Patient information: Note initiated : 05/10/19 at 10:10 am Service Date, if different from initiated Date: [] Patient: Sam Dexter 69 y/o M admitted on 05/03/19 for Weakness, Recent Flu, Low BP, SOB. Chief Complaint: [] Date of admission: 05/03/19 14:04 Discharge date: 05/10/19 Primary care physician: Papo Vega Consults: 05/03/19 Consult to Physician [CONS] Stat Comment: Consulting Provider: Joseph Mcclure Reason For Exam: Physician to Consult Medical - DS: Meds - Discharge Medications Prescriptions: Amoxicillin/Potassium Clav [Augmentin] 875 mg PO BIDCC #4 tab Transmission Status: Pending to [facility] Diltiazem [Cardizem Cd] 120 mg PO DAILY #60 cap.xl.24h Transmission Status: Pending to [facility] Apixaban [Eliquis] 2.5 mg PO BID #60 tab Transmission Status: Pending to [facility] Furosemide [Lasix] 40 mg PO BID #60 tab Transmission Status: Pending to [facility] predniSONE [Prednisone] 40 mg PO QAC #4 tab Transmission Status: Pending to [facility] Active and Home Medications: Home Medications Alprostadil [Edex] 40 mcg IC PRN PRN 08/16/18 [History Confirmed 05/03/19 Last Taken Unknown] FLUoxetine HCL [Prozac] 40 mg PO HS 08/16/18 [History Confirmed 05/05/19 Last Taken 05/02/19 21:00] HYDROcodone/APAP 10/325MG [[place] 10-325Mg] 1 tab PO Q4H PRN 08/16/18 [History Confirmed 05/03/19 Last Taken 05/03/19 05:30] Ipratropium/Albuterol Sulfate [Combivent] 1 puff INH PRN PRN 08/16/18 [History Confirmed 05/03/19 Last Taken Unknown] Isosorbide Mononitrate [Isosorbide Mononitrate ER] 120 mg PO DAILY 08/16/18 [History Confirmed 05/03/19 Last Taken 05/03/19 06:00] Omeprazole [Prilosec] 20 mg PO DAILY 08/16/18 [History Confirmed 05/03/19 Last Taken 05/03/19 06:00] Pravastatin Sodium [Pravachol] 20 mg PO HS 08/21/18 [History Confirmed 05/03/19 Last Taken 05/02/19 21:00] budesonide-formoterol HFA 160 mcg-4.5 mcg/actuation aerosol inhaler 2 puff INHALATION BID #10.2 g 11/07/18 [Rx Confirmed 05/03/19 Last Taken 05/02/19 21:00] atenolol 25 mg tablet 25 mg PO DAILY tab 02/24/19 [History Confirmed 05/03/19 Last Taken 05/03/19 06:00] quetiapine 50 mg tablet 100 mg PO BID 02/24/19 [History Confirmed 05/03/19 Last Taken 05/02/19 21:00] Docusate Sodium [Colace] 100 mg PO HS 05/03/19 [History Confirmed 05/03/19 Last Taken 05/02/19 21:00] Lisinopril [Zestril] 2.5 mg PO DAILY 05/03/19 [History Confirmed 05/03/19 Last Taken Unknown] Amoxicillin/Potassium Clav [Augmentin] 875 mg PO BIDCC #4 tab 05/10/19 [Rx Last Taken Unknown] Apixaban [Eliquis] 2.5 mg PO BID #60 tab 05/10/19 [Rx Last Taken Unknown] Diltiazem [Cardizem Cd] 120 mg PO DAILY #60 cap.xl.24h 05/10/19 [Rx Last Taken Unknown] Furosemide [Lasix] 40 mg PO BID #60 tab 05/10/19 [Rx Last Taken Unknown] predniSONE [Prednisone] [facility] tab 05/10/19 [Rx Last Taken Unknown] Medical - DS: Hosp Hospital Course: Discharge diagnosis * Acute respiratory failure with hypoxia-secondary to combination of pneumonia/COPD exacerbation/CHF, improved with aggressive diuresis/antibiotic/noninvasive ventilation and resolution of COPD flare. Currently on 4 L oxygen. Discharge home with home health services * A flutter RVR-verified following adenosine 6 mg with variable block. Responded to diltiazem. Continue beta-shawn/diltiazem CD with variable block but rate controlled. Elevated Chads score mandating anticoagulation. Started on Eliquis. * Left upper lobe pneumonia clinically improving on antibiotic coverage. Continue additional 2 days oral Augmentin * COPD exacerbation clinically resolved. Continue oral steroids/bronchodilators. Smoking cessation counseling performed. * Hypertension continue low-dose ESTELA inhibitor/atenolol/isosorbide/ Cardizem CD * History of CAD continue isosorbide/ESTELA inhibitor/statin * Anxiety disorder continue fluoxetine/olanzapine * GERD continue PPI * DJD continue home dose hydrocodone * History of smoking-willing to quit. Counseled Brief hospital course Mr. Dexter is a 69 year old M who was recently hospitalized at [facility] and was discharged on April 30 with diagnosis of acute decompensated heart failure/COPD exacerbation. Patient was managed on steroids and bronchodilators. Echocardiogram revealed normal left ventricle systolic function. He was discharged home however he never really felt better and has progressive deteriorated with increasing shortness of breath, weakness and lightheadedness he presents to primary care physician's office where he was found to be hypotensive in the 90s with heart rate around 40 requiring 4 L oxygen with sats barely 90s. Patient was thereafter sent to [facility] ER initial work-up was consistent with left upper lobe pneumonia. Patient was started on Levophed in light of systolics dropping to 70s following administration of Lasix in the ER. Hospitalist service was consulted for management of above At the time evaluation patient is alert and respond to commands. He is barely able to talk in full sentences. He is currently on BiPAP. Initial blood gas 7.42/57/36 on 3 L oxygen. Systolics have improved to 90s on Levophed. EKG normal sinus Patient denies fever, chills but endorses to hot flashes, productive sputum. Denies diarrhea dysuria but has noticed a remarkable decline in functionality. Patient lives alone and receives help from a caregiver 2 to 3 hours a day. He risk factors include recent exposure to healthcare facility and recent smoking. Up-to-date on flu and pneumonia vaccine 05/04-patient clinically improving. Overnight on BiPAP. This morning off BiPAP currently on 4 L oxygen. On IV steroids/bronchodilators/antibiotic coverage. Feels weak and tired and fatigued. However able to talk in full sentences. Very fatigued lethargic this morning. Frequently dozing off during conversation. White count 7.3 05/05-patient continues to deteriorate. Worsening chest infiltrates. On BiPAP. Pulmonary edema noted. Started on diuretics. Continue antibiotic coverage. White count up at 14.9, 90% neutrophils. Recheck ABG/chest imaging a.m. 05/06-patient remains very wheezy and short of breath however feels better since previous day. Diuresing gradually. On antibiotic coverage for chest infiltrate. White count downtrending. Methylprednisolone lowered. Continue PT OT/breathing treatments. Continue nutrition support. Overall long-term prognosis poor in the setting of advanced COPD 05/07-patient overnight on BiPAP. However clinically improving. Diuresing well. Continue antibiotics/bronchodilators and diuretics. On free water restriction. Continue PT OT/nutrition support. Gradual recovery noted. 05/08-patient diuresed well overnight. Off BiPAP however this morning into A. fib with RVR. Started on metoprolol and if inadequate rate response start diltiazem drip. Continue existing treatments. Denies diaphoresis but complains of minimal chest pressure during tachycardia up to 170. EKG reviewed, interval chest imaging improved 05/09-patient off Cardizem. Converted to sinus. Start Cardizem CD 120. Systolics at goal. Off BiPAP. Currently on baseline oxygen with improved shortness of breath. Transfer to medical floor. Anticipate discharge to SNF in 24 hours. Case management to coordinate SNF placement. 05/10-patient doing well. No overnight events. No concerns per staff. Denies fever chills. Off noninvasive ventilation. Diuresing well. Feels at baseline. Discharging on additional 2 days antibiotics/increased dose of Lasix twice daily. Will recommend follow-up with cardiology as outpatient. Continue Eliquis/Cardizem CD for a flutter and stroke prophylaxis. Continue steroids for additional 4 days. Discharge diagnosis: . - Time Spent with Patient Total time spent providing and/or coordinating discharge services: Greater than 30 minutes Medical - DS: Exam - Constitutional Vitals: Vital Signs Temp Pulse Resp BP Pulse Ox 05/10/19 09:48 104/64 98 05/10/19 09:01 101/73 97 05/10/19 08:46 96/50 94 05/10/19 08:24 94 05/10/19 08:19 97.7 F 100 H 20 100/70 94 05/10/19 07:53 72 15 95 05/10/19 07:19 77 96 05/10/19 07:05 82 16 05/10/19 07:01 109/76 97 05/10/19 06:01 93/75 98 05/10/19 05:01 16 106/72 97 05/10/19 04:01 98.1 F 17 105/75 97 05/10/19 03:01 15 119/56 97 05/10/19 02:01 16 117/67 98 05/10/19 02:00 96 05/10/19 01:01 16 98/65 96 05/10/19 00:01 97.4 F 20 103/73 97 05/09/19 23:01 88/67 98 05/09/19 22:01 110/88 95 05/09/19 21:01 102/75 94 05/09/19 20:01 97.2 F 18 97/71 98 05/09/19 20:00 98 05/09/19 19:10 81 20 05/09/19 19:02 101/52 99 05/09/19 17:32 97 05/09/19 17:01 92/61 94 05/09/19 16:48 101/74 94 05/09/19 16:28 90/52 97 05/09/19 16:06 95 05/09/19 16:01 97.2 F 16 117/100 96 05/09/19 15:16 98 05/09/19 15:15 88 20 05/09/19 15:08 117/70 93 05/09/19 15:02 99/65 05/09/19 14:01 96/79 93 05/09/19 13:04 97 05/09/19 13:01 99/61 97 05/09/19 12:49 94/80 96 05/09/19 12:06 96 05/09/19 12:02 97 F 22 95/62 96 05/09/19 11:26 93 H 16 05/09/19 11:01 16 127/85 98 Intake and Output 05/09/19 05/10/19 05/10/19 21:59 05:59 13:59 Intake Total 360 360 Output Total 2024 650 600 Balance -6218 -807 -856 Intake: Oral 360 360 Output: Void Amount 2024 600 Other: Meal Dinner snack Percent of Meal Consumed 100% 100% Feeding Ability Independent Assist with Tray Set Up Urine Appearance Clear Urine Color Bright Yellow Bright Yellow Weight 174 lb 6.4 oz Medical - DS: Data Labs on day of discharge: Labs from last 24 hours 05/10/19 05/10/19 04:03 04:03 WBC 10.2 RBC 3.69 L Hgb 12.1 L Hct 37.9 L MCV 102.7 H MCH 32.8 MCHC 31.9 RDW 13.3 Plt Count 180 MPV 9.8 Gran % 86.4 H Lymph % (Auto) 6.9 L [place] % (Auto) 6.3 Eos % (Auto) 0.1 Baso % (Auto) 0.3 Gran # 8.85 H Lymph # (Auto) 0.71 L [place] # (Auto) 0.64 Eos # (Auto) 0.01 Baso # (Auto) 0.03 Sodium 135 Potassium 3.9 Chloride 95 L Carbon Dioxide 27 Anion Gap 13.0 BUN 32 H Creatinine 1.0 GFR Calculation 78 Glucose 132 H Uric Acid 3.2 Calcium 9.3 Phosphorus 3.8 Magnesium 2.0 Total Bilirubin 0.3 Direct Bilirubin < 0.2 GGT 62 H AST 7 ALT 43 H Alkaline Phosphatase 61 Lactate Dehydrogenase 191 Total Protein 5.4 L Albumin 3.5 Globulin 1.9 L Albumin/Globulin Ratio 1.8 Triglycerides 461 H Medical - DS: A/P - Patient/Caregiver Discharge Instructions Activity: as per physical therapy, increase activity as tolerated Diet: Low Sodium (2gm) (Free water restriction to 1200 cc a day) Additional Instructions: Follow-up PCP Dr. Barros #in 5 days Follow-up cardiology in 1 to 2 weeks for evaluation of a flutter/ablation * Cardizem CD 120 daily, Eliquis for anticoagulation * Increase Lasix to 40 mg twice daily * Continue Augmentin for additional 2 days * Continue oral prednisone for 4 days * Outpatient pulmonology follow-up * Home health PT OT * Continue Free water restriction to 1200 cc * I recommend primary care physician to check CBC BMP UA as a posthospital follow-up in 1 week. * Continue oxygen at 3 to 4 L * CPAP as per pulmonology * Continue aggressive bowel regimen to prevent constipation Continue fall precautions Daily weights measurements and take additional 40 mg Lasix for 3 days if weight gain over 4 pounds over baseline or worsening SOB and call primary care physician if inadequate response to Lasix Continue aggressive home health PT OT evaluation and treatment High protein calorie supplements All meals on chair sitting upright at 90 degrees to prevent aspiration Return to ER if worsening fever chills shortness of breath, diarrhea, bleeding Review risk and side effect profile of medications including antibiotics/Cardizem/anticoagulation on Eliquis. Side effect may include mild to severe reaction including rash, diarrhea, cdiff, life-threatening bleeding and even which can be prevented by close follow-up with PCP and monitoring for side effects Refrain from smoking and alcohol Continue low-sodium diet, free water restriction and activity as advised Discussed importance of medication adherence Please review medication list with patient prior to discharge Please schedule follow-up with PCP/Providers prior to discharge and provide printouts Prescriptions: Amoxicillin/Potassium Clav [Augmentin] 875 mg PO BIDCC #4 tab Transmission Status: Pending to [facility] Diltiazem [Cardizem Cd] 120 mg PO DAILY #60 cap.xl.24h Transmission Status: Pending to [facility] Apixaban [Eliquis] 2.5 mg PO BID #60 tab Transmission Status: Pending to [facility] Furosemide [Lasix] 40 mg PO BID #60 tab Transmission Status: Pending to [facility] predniSONE [Prednisone] 40 mg PO [facility] #4 tab Transmission Status: Pending to [facility] - Problem Maintenance (1) Acute and chronic respiratory failure with hypoxia Status: Acute - Follow up Plan Follow up with: Papo Vega MD [Primary Care Provider] - Disposition: Home, Self-Care Care Plan Goals: This discharge packet is provided to you to help keep you informed about your care. We want to ensure you get everything you need when you go home. You will also be receiving a call from us in a few days to follow up with you and see how you are doing since your discharge. This gives us a chance to listen to any concerns you maybe experiencing since you were discharged or any additional needs you may have, as well as providing us feedback on your care experience. We strive to always provide excellent care and thank you for your feedback and for choosing [facility]. Prognosis: Fair Rehab Potential: Fair I certify that the patient requires SNF services: No Overall status at discharge: patient is progressing back to baseline
== END 2019-05-10 13:50 | disposition home or self-care (01) | DRG 189 ==
LOC: ED 10:21 → ICU 14:04
PROVIDERS: ADMIT Internal Medicine; ATTEND Internal Medicine

== ENCOUNTER 2020-09-19 11:31 | Inpatient (IN) ==
[2020-09-19] MEDS ORDERED: IPRATROPIUM/ALBUTEROL 3 ML AMPUL.NEB NEB ONE ×2 (11:41→16:01)
[2020-09-19] MEDS ORDERED: 0.9 % SODIUM CHLORIDE 1,000 ML IV ONE ×3 (11:41→14:03)
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
--- NOTE | 2020-09-19 12:52 | XRay Report ---
CLINICAL INFORMATION: SOB COMPARISON: 01/26/2020 FINDINGS: Marked cardiomegaly show slight increase. Mediastinum and pulmonary vasculature are unremarkable. Moderate interstitial fibrosis throughout both lungs more prominent in the lower lobes similar previous study. No effusions IMPRESSION: Moderate cardiomegaly and interstitial fibrosis throughout both lungs more prominent in the lower lobes. No acute disease Interpreted and Authenticated by: Elliot Gilmore 09/19/20
[2020-09-19 13:29] LABS: Basophils # (Auto) 0.04 K/mcL (0.00-0.20); Basophils % (Auto) 0.5 % (0.0-2.0); Eosinophils # (Auto) 0.02 K/mcL (0.00-0.70); Eosinophils % (Auto) 0.2 % (0.0-7.0); Hematocrit 40.7 % (41.0-55.0); Hemoglobin 13.1 g/dL (13.5-16.5); Lymphocytes # (Auto) 0.98 K/mcL (1.50-4.80); Mean Cell Volume 93.3 fL (80.0-100.0); Mean Corpuscular HGB Conc 32.2 g/dL (31.0-36.0); Mean Platelet Volume 9.9 fL (7.4-10.4); Monocytes # (Auto) 0.53 K/mcL (0.10-0.90); Monocytes % (Auto) 6.5 % (1.0-12.0); Neutrophils % (Auto) 80.8 % (38.0-78.0); Platelet Count 164 K/mcL (140-440); RBC 4.36 M/mcL (4.50-5.90); Red Cell Distribution Width 13.6 % (11.5-14.5); WBC 8.2 K/mcL (4.5-11.0)
[2020-09-19 13:44] LABS: ALT/SGPT 14 U/L (<40); AST/SGOT 10 U/L (<40); Albumin 3.5 gm/dL (3.2-5.2); Albumin/Globulin Ratio 1.8 (1.0-2.3); Alkaline Phosphatase 116 U/L (39-117); Bilirubin,Total 0.4 mg/dL (0.1-1.0); Blood Urea Nitrogen 16 mg/dL (8-23); Calcium 8.5 mg/dL (8.6-10.4); Carbon Dioxide 25 mmol/L (22-30); Chloride 100 mmol/L (96-108); Globulin 1.9 gm/dL (2.2-3.7); Glomerular Filtration Rate 77; Glucose 121 mg/dL (70-105)
--- NOTE | 2020-09-19 14:05 | XRay Report ---
CLINICAL INFORMATION: L Foot pain COMPARISON: None. FINDINGS: Moderate diffuse osteoporosis noted. Moderate hallux valgus and metatarsus abductus deformities noted. Mild degenerative change noted in the first MTP and second through fifth interphalangeal joints. Moderate soft tissue swelling over the forefoot and medial midfoot noted. IMPRESSION: Soft tissue swelling. Hallux valgus and metatarsus abductus Osteoporosis. Consider DEXA scanning. If osteoporotic, she may benefit from medical therapy for future fracture prevention Interpreted and Authenticated by: Elliot Gilmore 09/19/20
--- NOTE | 2020-09-19 14:35 | EKG ---
[facility] Test Date: 2020-09-19 Pat Name: Sam Dexter Department: ED Room: Gender: Male Director Of Market Intelligence: MARY : 1950 Requested By: José Miguel Almeida Order Number: [id number] Reading MD: Papo Vega M.D. Measurements Intervals [place] Rate: 79 P: 69 RI: 140 QRS: 88 QRSD: 100 T: -1 QT: 402 QTc: 461 Interpretive Statements Sinus rhythm Borderline right axis deviation Low voltage, extremity leads Baseline wander in lead(s) V3,V4,V5 NO PRIOR TRACING FOR COMPARISON BORDERLINE ECG Electronically Signed On 09-19-2020 14:35:18 PDT by Papo Vega M.D. /[facility] [place]/[id number]
[2020-09-19] MEDS ORDERED: DOPamine 400 MG in PREMIX 1 BAG IV SCH ×2 (15:15→17:37)
[2020-09-19] MEDS ORDERED: 0.9 % SODIUM CHLORIDE 250 ML IV SCH (15:15)
[2020-09-19] MEDS ORDERED: PROCHLORPERAZINE 10 MG/2 ML VIAL IV ONE (15:19)
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
[2020-09-19] MEDS ORDERED: ALBUTEROL SULFATE 5 MG/ML NEB SOLUTION BOTTLE NEB ONE (15:58)
[2020-09-19] MEDS ORDERED: methylPREDNISolone SOD SUCC 125 MG/2 ML VIAL IV ONE (15:58)
[2020-09-19] MEDS ORDERED: AZITHROMYCIN 500 MG in DEXTROSE 5% IN WATER 250 ML IV ONE (16:05)
[2020-09-19] MEDS ORDERED: cefTRIAXone 1 GM VIAL IV ONE (16:05)
[2020-09-19 16:54] LABS: INR 1.2 (0.9-1.1); Prothrombin Time 15.6 sec (11.9-14.5)
[2020-09-19] MEDS ORDERED: guaiFENesin/CODEINE 10 ML UDC PO PRN (17:37)
[2020-09-19] MEDS ORDERED: ONDANSETRON 4 MG/2 ML VIAL IV PRN (17:37)
[2020-09-19] MEDS ORDERED: ENOXAPARIN 40 MG/0.4 ML SYRINGE SQ SCH (17:37)
[2020-09-19] MEDS ORDERED: ACETAMINOPHEN 325 MG TABLET PO PRN (17:37)
[2020-09-19] MEDS ORDERED: morphine 2 MG/ML VIAL IV PRN (18:22)
[2020-09-19] MEDS: 0.9 % SODIUM CHLORIDE 250 ML IV SCH ×2 (18:30→23:32)
[2020-09-19] MEDS: 0.9 % SODIUM CHLORIDE 1,000 ML IV SCH (18:53)
[2020-09-19] MEDS: APIXABAN 5 MG TABLET PO SCH (20:41)
[2020-09-19] MEDS: BUDESONIDE 0.5 MG/2 ML AMPUL.NEB NEB SCH (20:43)
[2020-09-19] MEDS: ALBUTEROL SULFATE 2.5 MG/3 ML NEBULIZER NEB SCH (20:43)
[2020-09-19] MEDS: HYDROcodone/APAP 10/325MG TABLET PO PRN (20:44)
[2020-09-19] MEDS ORDERED: APIXABAN 5 MG TABLET PO SCH (21:00)
[2020-09-19] MEDS: 0.9 % SODIUM CHLORIDE 10 ML SYRINGE IV SCH (21:34)
[2020-09-19] MEDS: methylPREDNISolone SOD SUCC 40 MG/ML VIAL IV SCH (21:41)
[2020-09-19] MEDS: QUEtiapine 100 MG TABLET PO SCH (21:52)
[2020-09-19] MEDS: OMEPRAZOLE 20 MG CAPSULE PO SCH (21:53)
[2020-09-19] MEDS: SIMVASTATIN 10 MG TABLET PO SCH (21:53)
[2020-09-19] MEDS ORDERED: 0.9 % SODIUM CHLORIDE 500 ML IV SCH (23:00)
[2020-09-19] MEDS: DOPamine 400 MG/250 ML BAG IV SCH (23:35)
[2020-09-20] MEDS: HYDROcodone/APAP 10/325MG TABLET PO PRN ×4 (02:15→21:20)
[2020-09-20] MEDS: 0.9 % SODIUM CHLORIDE 10 ML SYRINGE IV SCH ×3 (03:15→21:23)
[2020-09-20] MEDS: 0.9 % SODIUM CHLORIDE 1,000 ML IV SCH (04:57)
[2020-09-20 05:54] LABS: Hematocrit 40.9 % (41.0-55.0); Mean Corpuscular HGB Conc 31.8 g/dL (31.0-36.0); Mean Platelet Volume 9.3 fL (7.4-10.4); Platelet Count 142 K/mcL (140-440); RBC 4.35 M/mcL (4.50-5.90); Red Cell Distribution Width 13.6 % (11.5-14.5); WBC 6.7 K/mcL (4.5-11.0)
[2020-09-20] MEDS: methylPREDNISolone SOD SUCC 40 MG/ML VIAL IV SCH (06:02)
[2020-09-20 06:17] LABS: Blood Urea Nitrogen 10 mg/dL (8-23); Calcium 8.4 mg/dL (8.6-10.4); Carbon Dioxide 25 mmol/L (22-30); Chloride 105 mmol/L (96-108); Glomerular Filtration Rate 96; Glucose 141 mg/dL (70-105)
[2020-09-20] MEDS: OMEPRAZOLE 20 MG CAPSULE PO SCH ×2 (07:37→16:58)
[2020-09-20 07:52] LABS: Lymphocytes % 2 % (15-49); Monocytes % (Manual) 1 % (1-12); Platelet Estimate NORMAL (Normal); RBC Morphology NORMAL (Normal); Segmented Neutrophils % 97 % (38-78)
[2020-09-20] MEDS: APIXABAN 5 MG TABLET PO SCH ×2 (08:29→20:26)
[2020-09-20] MEDS: QUEtiapine 100 MG TABLET PO SCH ×2 (08:30→08:39)
[2020-09-20] MEDS: BUDESONIDE 0.5 MG/2 ML AMPUL.NEB NEB SCH ×3 (08:38→22:00)
[2020-09-20] MEDS: ALBUTEROL SULFATE 2.5 MG/3 ML NEBULIZER NEB SCH ×4 (08:38→21:50)
[2020-09-20] MEDS: cefTRIAXone 1 GM VIAL IV SCH (09:03)
[2020-09-20] MEDS: Budesonide-Formoterol [Symbicort] 160-4.5 mcg Inhaler INH SCH ×2 (10:11→20:27)
[2020-09-20] MEDS: AZITHROMYCIN 500 MG in DEXTROSE 5% IN WATER 250 ML IV SCH (10:26)
[2020-09-20] MEDS: DOPamine 400 MG/250 ML BAG IV SCH (11:25)
--- NOTE | 2020-09-20 11:43 | Internal Med Progress Note ---
SUBJECTIVE Subjective Patient information: Note initiated : 09/20/20 at 11:37 am Service Date, if different from initiated Date: Patient: Sam Dexter 70 y/o M admitted on 09/19/20 for syncope. Chief Complaint: Cough and syncopal episode Constitutional Vitals: Vital Signs Temp Pulse Resp BP Pulse Ox 97.6 F 95 H 15 106/74 97 09/20/20 08:01 09/20/20 11:01 09/20/20 11:01 09/20/20 11:01 09/20/20 11:01 Period Temp Pulse Resp BP Sys/Nuñez Pulse Ox Last 24 Hr 96.4 F-97.7 F 66-133 13-33 63-152/37-94 85-100 Intake and Output 09/19/20 09/20/20 09/20/20 21:59 05:59 13:59 Intake Total 1377 1823 233 Output Total 1650 1498 232 Balance -273 325 1 Weight 81.692 kg Intake & Output: Intake & Output 09/19/20 09/20/20 09/20/20 21:59 05:59 13:59 Intake Total 1377 1823 233 Output Total 1650 1498 232 Balance -273 325 1 Weight 81.692 kg Intake: IV 1377 1223 233 Sodium Chloride 0.9% 1,000 ml @ 1000 945 233 100 mls/hr IV .Q10H TAJ Rx#: [id number] Sodium Chloride 0.9% 250 ml @ 144 20 mls/hr IV .[id number] TAJ Rx#: [id number] Sodium Chloride 0.9% 500 ml @ 89 20 mls/hr IV .Q24H TAJ Rx#: [id number] Zithromax 500 mg In Dextrose 5% 250 in Water 250 ml @ 250 mls/hr IV ONCE ONE Rx#:[id number] DOPamine 400 MG In Premix 1 Bag 127 45 @ 5 MCG/KG/MIN 14.628 mls/hr IV .Q17H6M TAJ Rx#:[id number] Oral 600 Output: Urine Catheter Amount 1650 1498 232 Other: Urine Appearance Clear Clear Clear Uretheral (Boateng) Clear Clear Urine Color Pale Pale Bright Yellow Uretheral (Boateng) Bright Yellow Pale Additional findings Additional findings: General: Awake alert oriented x3. No apparent distress. HEENT: PERRLA, moist mucous membrane. Anicteric sclera Lungs: Talks full sentences. Bilateral expiratory wheezing. Dry crackles throughout both lung manning. Cardiovascular: Regular rate and rhythm. S1 + S2, no murmur gallop rub. Trace of bilateral ankle edema GI: Abdomen soft, nontender, positive bowel sounds. No hepatosplenomegaly. No rebound tenderness. No CVA tenderness DIVORCE MEDIATOR: Awake alert oriented x3. Cranial nerves II through XII 12 grossly intact. Psychiatric: Normal mood and affect OBJ DATA Labs CBC & Chem 7: 09/20/20 05:07 09/20/20 05:07 Labs: Abnormal Lab Results 09/20/20 09/20/20 09/19/20 05:07 05:07 12:14 RBC 4.35 L Hgb 13.0 L Hct 40.9 L Neut % (Auto) Lymph % (Auto) Lymph # (Auto) Seg Neutrophils % 97 H Lymphocytes % 2 L PT 15.6 H INR 1.2 H Glucose 141 H Calcium 8.4 L Total Protein Globulin 09/19/20 09/19/20 12:14 12:14 RBC 4.36 L Hgb 13.1 L Hct 40.7 L Neut % (Auto) 80.8 H Lymph % (Auto) 12.0 L Lymph # (Auto) 0.98 L Seg Neutrophils % Lymphocytes % PT INR Glucose 121 H Calcium 8.5 L Total Protein 5.4 L Globulin 1.9 L Meds: Medications Acetaminophen (Acetaminophen 325 Mg Tablet) 650 mg PO Q4-6HP PRN; Protocol PRN Reason: Per Pain Protocol/Fever > 101 Hydrocodone Bitart/Acetaminophen (Hydrocodone/Apap 10/325mg Tablet) 1 tab PO Q6HP PRN; Protocol PRN Reason: Per Pain Protocol Last Admin: 09/20/20 10:10 Dose: 1 tab Documented by: Albuterol Sulfate (Albuterol Sulfate 2.5 Mg/3 Ml Nebulizer) 2.5 mg NEB TID [facility] Last Admin: 09/20/20 09:26 Dose: 2.5 mg Documented by: Albuterol Sulfate (Albuterol Sulfate 2.5 Mg/3 Ml Nebulizer) 2.5 mg NEB Q4HP PRN PRN Reason: Shortness Of Breath Apixaban (Apixaban 5 Mg Tablet) 2.5 mg PO BID [facility] Last Admin: 09/20/20 08:29 Dose: 2.5 mg Documented by: Budesonide (Budesonide 0.5 Mg/2 Ml Ampul.Neb) 0.5 mg NEB Q12 TAJ Last Admin: 09/20/20 09:26 Dose: 0.5 mg Documented by: Ceftriaxone Sodium (Ceftriaxone 1 Gm Vial) 1 gm IV Q24H TAJ; Protocol Last Admin: 09/20/20 09:03 Dose: 1 gm Documented by: Guaifenesin/Codeine Phosphate (Guaifenesin/Codeine 10 Ml Udc) 10 ml PO Q4HP PRN PRN Reason: Cough Dopamine HCl/Dextrose (Dopamine) 400 mg in 250 mls @ 14.628 mls/hr IV .Q17H6M [facility]; Protocol Last Admin: 09/20/20 11:25 Dose: Not Given Documented by: Azithromycin 500 mg/ Dextrose 250 mls @ 250 mls/hr IV Q24H TAJ; Protocol Stop: 09/22/20 10:59 Last Admin: 09/20/20 10:26 Dose: 250 mls/hr Documented by: Sodium Chloride (Sodium Chloride 0.9%) 500 mls @ 20 mls/hr IV .Q24H [facility] Last Infusion: 09/20/20 03:15 Dose: 0 mls/hr Documented by: Methylprednisolone Sodium Succinate (Methylprednisolone Sod Succ 40 Mg/Ml Vial) 40 mg IV Q8 [facility] Last Admin: 09/20/20 06:02 Dose: 40 mg Documented by: Morphine Sulfate (Morphine 2 Mg/Ml Vial) 2 mg IV Q4HP PRN; Protocol PRN Reason: Per Pain Protocol Omeprazole (Omeprazole 20 Mg Capsule) 20 mg PO BID [facility] Last Admin: 09/20/20 07:37 Dose: 20 mg Documented by: Ondansetron HCl (Ondansetron 4 Mg/2 Ml Vial) 4 mg IV Q4-6HP PRN; Protocol PRN Reason: Nausea And Vomiting Budesonide- Formoterol [ Symbicort] 160-4.5 Mcg Inhaler 2 dose INH BID [facility] Last Admin: 09/20/20 10:11 Dose: 2 dose Documented by: Simvastatin (Simvastatin 10 Mg Tablet) 10 mg PO HS [facility] Last Admin: 09/19/20 21:53 Dose: 10 mg Documented by: Sodium Chloride (0.9 % Sodium Chloride 10 Ml Syringe) 10 ml IV Q8 [facility] Last Admin: 09/20/20 03:15 Dose: 10 ml Documented by: A/P Narrative A/P Narrative: 70 years old male with past medical history significant for interstitial lung disease by CxR, 4L COPD, CAD, Hx of A.Flutter presented to ED with syncopal episode. # Hypotension. No evidence of sepsis. Resolved with IV fluid and short course of dopamine drip. -Likely due to severe dehydration/heat stroke -s/p aggressive IV fluid. Off Dopamine drip now. - Dc IVF today and Resume Home Lasix soon. -Blood cultures pending. Lactic acid is normal. White blood cell normal. No fever. No evidence of SIRS/sepsis # Syncopal episode with cough. - Combination of Vasovagal and Dehydration - No sepsis. Rx as above. Trop negative. No syncope since admission. no indication for CT head # Acute on Chronic Hypoxic Resp failure. Baseline 4L - Cont BIPAP for now and transition to NC slowly. - Was on10L. CxR Moderate cardiomegaly and interstitial fibrosis throughout both lungs more prominent in the lower lobes. No acute disease - Cont Rocephin/Zithro for COPD Exacerbation. - Change Solumedrol 60mg IV TID to PO prednisone wit slow taper. Cont Bronchodilator and Start BIPAP. # Hx of HFpEF. Normal EF per Report at [facility] 05/12 - Most likely Right heart failure and Pulm HTN - Hold ACEIs, Diuretics, BB due to Low BP. - Resume Diuretic first then BB and ACEIs slwoely. # Hx of A flutter RV - Now in NSR. Hold BB, CCA due to Low BP. Cont Eliquis. # Hypertension now low BP. Hold ESTELA inhibitor/atenolol/isosorbide& Cardizem CD # History of CAD. Hold isosorbide/ESTELA inhibitor. Cont Statin # Anxiety disorder continue fluoxetine/ Olanzapine # GERD continue PPI # DJD continue home dose hydrocodone # Active Tobacco use. Still smoke 10ciggarrett a day. Counseling given. Offered Nicotine patch Code. Full code DVT Prophylaxis. Eliquis. POA. Pt's Friend. Pt has no family. He has a resident care manager rn Down grade from ICU today. Time Spent With Patient Time: Total time spent is greater than 50% in coordination of care (as documented) at patient's floor/unit and/or counseling patient: QUALITY VTE Deep Vein Thrombosis/Pulmonary Embolism Present on Admission: No
[2020-09-20] MEDS: predniSONE 20 MG TABLET PO SCH (12:12)
[2020-09-20] MEDS: FUROSEMIDE 40 MG TABLET PO SCH (12:12)
[2020-09-20] MEDS: ALBUTEROL SULFATE 2.5 MG/3 ML NEBULIZER NEB PRN ×2 (12:26→18:30)
[2020-09-20] MEDS: POLYETHYLENE GLYCOL 3350 17 GM PACKET PO PRN (16:20)
[2020-09-20] MEDS: SIMVASTATIN 10 MG TABLET PO SCH (20:26)
[2020-09-21] MEDS: HYDROcodone/APAP 10/325MG TABLET PO PRN ×4 (03:15→23:45)
[2020-09-21] MEDS: 0.9 % SODIUM CHLORIDE 10 ML SYRINGE IV SCH ×3 (05:22→21:38)
[2020-09-21 07:06] LABS: Basophils # (Auto) 0 K/mcL (0.00-0.20); Basophils % (Auto) 0 % (0.0-2.0); Eosinophils # (Auto) 0 K/mcL (0.00-0.70); Eosinophils % (Auto) 0 % (0.0-7.0); Hematocrit 40.1 % (41.0-55.0); Hemoglobin 12.8 g/dL (13.5-16.5); Lymphocytes # (Auto) 0.78 K/mcL (1.50-4.80); Lymphocytes % (Auto) 6.7 % (15.0-49.0); Mean Cell Volume 93.3 fL (80.0-100.0); Mean Corpuscular HGB Conc 31.9 g/dL (31.0-36.0); Mean Platelet Volume 10.3 fL (7.4-10.4); Monocytes # (Auto) 0.68 K/mcL (0.10-0.90); Monocytes % (Auto) 5.8 % (1.0-12.0); Neutrophils % (Auto) 87.5 % (38.0-78.0); Platelet Count 164 K/mcL (140-440); Red Cell Distribution Width 14.2 % (11.5-14.5); WBC 11.6 K/mcL (4.5-11.0)
[2020-09-21] MEDS: OMEPRAZOLE 20 MG CAPSULE PO SCH ×2 (07:12→16:57)
[2020-09-21 07:48] LABS: Blood Urea Nitrogen 15 mg/dL (8-23); Carbon Dioxide 27 mmol/L (22-30); Chloride 101 mmol/L (96-108); Glomerular Filtration Rate 96; Glucose 111 mg/dL (70-105)
[2020-09-21] MEDS: cefTRIAXone 1 GM VIAL IV SCH (08:25)
[2020-09-21] MEDS: POLYETHYLENE GLYCOL 3350 17 GM PACKET PO PRN (08:25)
[2020-09-21] MEDS: FUROSEMIDE 40 MG TABLET PO SCH (08:26)
[2020-09-21] MEDS: predniSONE 20 MG TABLET PO SCH (08:26)
[2020-09-21] MEDS: Budesonide-Formoterol [Symbicort] 160-4.5 mcg Inhaler INH SCH ×2 (08:28→21:17)
[2020-09-21] MEDS ORDERED: ISOSORBIDE MONONITRATE 30 MG TAB.XL.24H PO SCH (09:00)
[2020-09-21] MEDS: BUDESONIDE 0.5 MG/2 ML AMPUL.NEB NEB SCH ×2 (09:08→21:41)
[2020-09-21] MEDS: ALBUTEROL SULFATE 2.5 MG/3 ML NEBULIZER NEB SCH ×3 (09:08→21:15)
[2020-09-21] MEDS ORDERED: APIXABAN 5 MG TABLET PO SCH (09:14)
[2020-09-21] MEDS: AZITHROMYCIN 500 MG in DEXTROSE 5% IN WATER 250 ML IV SCH (09:22)
--- NOTE | 2020-09-21 09:53 | Internal Med Progress Note ---
SUBJECTIVE Subjective Patient information: Note initiated : 09/21/20 at 9:46 am Service Date, if different from initiated Date: Patient: Sam Dexter 70 y/o M admitted on 09/19/20 for syncope. Chief Complaint: Coughing spell with syncope and respiratory failure Principal diagnosis: Syncope, acute on chronic hypoxic respiratory failure Interval history: Patient is feeling much better. He is on 5 L oxygen. He talks full sentences. He denies chest pain nausea vomiting Constitutional Vitals: Vital Signs Temp Pulse Resp BP Pulse Ox 97.2 F 91 H 15 120/78 94 09/21/20 07:01 09/21/20 09:09 09/21/20 09:09 09/21/20 07:01 09/21/20 09:09 Period Temp Pulse Resp BP Sys/Nuñez Pulse Ox Last 24 Hr 97.2 F-98.6 F 64-111 13-26 100-131/63-86 63-100 Intake and Output 09/20/20 09/21/20 09/21/20 21:59 05:59 13:59 Intake Total 1410 742 750 Output Total 990 550 Balance 420 192 750 Weight 81.42 kg Intake & Output: Intake & Output 09/20/20 09/21/20 09/21/20 21:59 05:59 13:59 Intake Total 1410 742 750 Output Total 990 550 Balance 420 192 750 Weight 81.42 kg Intake: IV 0 742 Sodium Chloride 0.9% 1,000 ml @ 742 100 mls/hr IV .Q10H TAJ Rx#: [id number] Sodium Chloride 0.9% 500 ml @ 0 20 mls/hr IV .Q24H TAJ Rx#: [id number] DOPamine 400 MG In Premix 1 Bag 0 @ 5 MCG/KG/MIN 14.628 mls/hr IV .Q17H6M TAJ Rx#:[id number] Oral 1410 750 Output: Urine Catheter Amount 690 Void Amount 300 550 Other: Meal Dinner Percent of Meal Consumed 100% Feeding Ability Independent Urine Appearance Hematur[place] Clear Uretheral ([place]) Clear Urine Color [place] Bright Yellow Additional findings Additional findings: General: Awake alert oriented x3. No apparent distress. Talks full sentences HEENT: PERRLA, moist mucous membrane. Anicteric sclera Lungs: Talks full sentences. Mild bilateral expiratory wheezing. Dry crackles throughout both lung manning. Cardiovascular: Regular rate and rhythm. S1 + S2, no murmur gallop rub. Trace of bilateral ankle edema GI: Abdomen soft, nontender, positive bowel sounds. No hepatosplenomegaly. No rebound tenderness. No CVA tenderness PANMAN: Awake alert oriented x3. Cranial nerves II through XII 12 grossly intact. Psychiatric: Normal mood and affect OBJ DATA Labs CBC & Chem 7: 09/21/20 05:16 09/21/20 05:16 Labs: Abnormal Lab Results 09/21/20 09/21/20 09/20/20 05:16 05:16 05:07 WBC 11.6 H RBC 4.30 L Hgb 12.8 L Hct 40.1 L Neut % (Auto) 87.5 H Lymph % (Auto) 6.7 L Lymph # (Auto) 0.78 L Seg Neutrophils % Lymphocytes % Absolute Neutrophils 10.17 H PT INR Glucose 111 H 141 H Calcium 8.4 L Total Protein Globulin 09/20/20 09/19/20 09/19/20 05:07 12:14 12:14 WBC RBC 4.35 L Hgb 13.0 L Hct 40.9 L Neut % (Auto) Lymph % (Auto) Lymph # (Auto) Seg Neutrophils % 97 H Lymphocytes % 2 L Absolute Neutrophils PT 15.6 H INR 1.2 H Glucose 121 H Calcium 8.5 L Total Protein 5.4 L Globulin 1.9 L 09/19/20 12:14 WBC RBC 4.36 L Hgb 13.1 L Hct 40.7 L Neut % (Auto) 80.8 H Lymph % (Auto) 12.0 L Lymph # (Auto) 0.98 L Seg Neutrophils % Lymphocytes % Absolute Neutrophils PT INR Glucose Calcium Total Protein Globulin Meds: Medications Acetaminophen (Acetaminophen 325 Mg Tablet) 650 mg PO Q4-6HP PRN; Protocol PRN Reason: Per Pain Protocol/Fever > 101 Hydrocodone Bitart/Acetaminophen (Hydrocodone/Apap 10/325mg Tablet) 1 tab PO Q6HP PRN; Protocol PRN Reason: Per Pain Protocol Last Admin: 09/21/20 03:15 Dose: 1 tab Documented by: Albuterol Sulfate (Albuterol Sulfate 2.5 Mg/3 Ml Nebulizer) 2.5 mg NEB TID [facility] Last Admin: 09/21/20 09:08 Dose: 2.5 mg Documented by: Albuterol Sulfate (Albuterol Sulfate 2.5 Mg/3 Ml Nebulizer) 2.5 mg NEB Q4HP PRN PRN Reason: Shortness Of Breath Last Admin: 09/20/20 18:30 Dose: 2.5 mg Documented by: Apixaban (Apixaban 5 Mg Tablet) 5 mg PO BID [facility] Last Admin: 09/21/20 09:22 Dose: 5 mg Documented by: Budesonide (Budesonide 0.5 Mg/2 Ml Ampul.Neb) 0.5 mg NEB Q12 [facility] Last Admin: 09/21/20 09:08 Dose: 0.5 mg Documented by: Ceftriaxone Sodium (Ceftriaxone 1 Gm Vial) 1 gm IV Q24H [facility]; Protocol Last Admin: 09/21/20 08:25 Dose: 1 gm Documented by: Furosemide (Furosemide 40 Mg Tablet) 40 mg PO DAILY [facility] Last Admin: 09/21/20 08:26 Dose: 40 mg Documented by: Guaifenesin/Codeine Phosphate (Guaifenesin/Codeine 10 Ml Udc) 10 ml PO Q4HP PRN PRN Reason: Cough Last Admin: 09/20/20 21:20 Dose: 10 ml Documented by: Azithromycin 500 mg/ Dextrose 250 mls @ 250 mls/hr IV Q24H [facility]; Protocol Stop: 09/22/20 10:59 Last Admin: 09/21/20 09:22 Dose: 250 mls/hr Documented by: Isosorbide Mononitrate (Isosorbide Mononitrate 30 Mg Tab.Xl.24h) 30 mg PO DAILY [facility] Last Admin: 09/21/20 08:27 Dose: 30 mg Documented by: Morphine Sulfate (Morphine 2 Mg/Ml Vial) 2 mg IV Q4HP PRN; Protocol PRN Reason: Per Pain Protocol Omeprazole (Omeprazole 20 Mg Capsule) 20 mg PO BIDAC [facility] Last Admin: 09/21/20 07:12 Dose: 20 mg Documented by: Ondansetron HCl (Ondansetron 4 Mg/2 Ml Vial) 4 mg IV Q4-6HP PRN; Protocol PRN Reason: Nausea And Vomiting Budesonide- Formoterol [ Symbicort] 160-4.5 Mcg Inhaler 2 dose INH BID [facility] Last Admin: 09/21/20 08:28 Dose: 2 dose Documented by: Polyethylene Glycol (Polyethylene Glycol 3350 17 Gm Packet) 17 gm PO DAILYP PRN PRN Reason: Constipation Last Admin: 09/21/20 08:25 Dose: 17 gm Documented by: Prednisone (Prednisone 20 Mg Tablet) 50 mg PO [facility] Last Admin: 09/21/20 08:26 Dose: 50 mg Documented by: Simvastatin (Simvastatin 10 Mg Tablet) 10 mg PO [facility] Last Admin: 09/20/20 20:26 Dose: 10 mg Documented by: Sodium Chloride (0.9 % Sodium Chloride 10 Ml Syringe) 10 ml IV Q8 [facility] Last Admin: 09/21/20 05:22 Dose: 10 ml Documented by: A/P Narrative A/P Narrative: 70 years old male with past medical history significant for interstitial lung disease by CxR, 4L COPD, CAD, Hx of A.Flutter presented to ED with syncopal episode. # Hypotension. No evidence of sepsis. Resolved with IV fluid and short course of dopamine drip. -Likely due to severe dehydration/heat stroke -s/p aggressive IV fluid. Off Dopamine drip . - Dced IVF and Resumed Home Lasix . -Blood cultures negative X2 lactic acid is normal. White blood cell normal. No fever. No evidence of SIRS/sepsis # Syncopal episode most likely vasovagal due to severe coughing spell. - Combination of Vasovagal and Dehydration - No sepsis. Rx as above. Trop negative. No syncope since admission. no indication for CT head # Acute on Chronic Hypoxic Resp failure. Baseline 4L - Cont BIPAP for now and transition to NC slowly. - Was on10L. CxR Moderate cardiomegaly and interstitial fibrosis throughout both lungs more prominent in the lower lobes. No acute disease - Cont Rocephin/Zithro for COPD Exacerbation. - Changed Solumedrol 60mg IV TID to PO prednisone wit slow taper. Cont Bronchodilator. Off BiPAP. # Hx of HFpEF. Normal EF per Report at [facility] 05/12 - Most likely Right heart failure and Pulm HTN - Hold ACEIs, Diuretics, BB due to Low BP. - Resumed Diuretic first then BB and ACEIs slowly. # Hx of A flutter RV - Now in NSR. Hold BB, CCA due to Low BP. Cont Eliquis. Adjust the dose based on creatinine clearance # Hypertension now low BP. Hold ESTELA inhibitor/atenolol. Resume isosorbide at lower dose. Resume diuretics # History of CAD. On isosorbide/ESTELA inhibitor. Cont Statin # Anxiety disorder continue fluoxetine/ Olanzapine # GERD continue PPI # DJD continue home dose hydrocodone # Active Tobacco use. Still smoke 10ciggarrett a day. Counseling given. Offered Nicotine patch Code. Full code DVT Prophylaxis. Eliquis. BARKLEY. Pt's Friend. Pt has no family. He has a anesthesiologist and critical care Downgrade to [facility] Disposition: If remains stable and on 4 L oxygen can be discharged home in the morning Time Spent With Patient Time: Total time spent is greater than 50% in coordination of care (as documented) at patient's floor/unit and/or counseling patient: QUALITY VTE Deep Vein Thrombosis/Pulmonary Embolism Present on Admission: No
[2020-09-21] MEDS: APIXABAN 5 MG TABLET PO SCH ×2 (10:35→21:14)
[2020-09-21] MEDS ORDERED: ONDANSETRON 4 MG/2 ML VIAL IV PRN (11:21)
[2020-09-21] MEDS ORDERED: POLYETHYLENE GLYCOL 3350 17 GM PACKET PO PRN (11:21)
[2020-09-21] MEDS ORDERED: morphine 2 MG/ML VIAL IV PRN (11:21)
[2020-09-21] MEDS ORDERED: ACETAMINOPHEN 325 MG TABLET PO PRN (11:21)
[2020-09-21] MEDS ORDERED: ALBUTEROL SULFATE 2.5 MG/3 ML NEBULIZER NEB PRN (11:21)
[2020-09-21] MEDS ORDERED: guaiFENesin/CODEINE 10 ML UDC PO PRN (11:21)
[2020-09-21] MEDS ORDERED: SIMVASTATIN 10 MG TABLET PO SCH (21:00)
[2020-09-22] MEDS: 0.9 % SODIUM CHLORIDE 10 ML SYRINGE IV SCH (06:03)
[2020-09-22] MEDS: OMEPRAZOLE 20 MG CAPSULE PO SCH (06:55)
[2020-09-22] MEDS: HYDROcodone/APAP 10/325MG TABLET PO PRN (06:55)
[2020-09-22] MEDS ORDERED: predniSONE 20 MG TABLET PO SCH (08:00)
[2020-09-22] MEDS: APIXABAN 5 MG TABLET PO SCH (08:10)
[2020-09-22] MEDS: Budesonide-Formoterol [Symbicort] 160-4.5 mcg Inhaler INH SCH (08:11)
[2020-09-22] MEDS: ALBUTEROL SULFATE 2.5 MG/3 ML NEBULIZER NEB SCH (08:59)
[2020-09-22] MEDS: BUDESONIDE 0.5 MG/2 ML AMPUL.NEB NEB SCH (08:59)
[2020-09-22] MEDS ORDERED: FUROSEMIDE 40 MG TABLET PO SCH (09:00)
[2020-09-22] MEDS ORDERED: cefTRIAXone 1 GM VIAL IV SCH (09:00)
[2020-09-22] MEDS ORDERED: ISOSORBIDE MONONITRATE 30 MG TAB.XL.24H PO SCH (09:00)
[2020-09-22] MEDS ORDERED: ATENOLOL 25 MG TABLET PO SCH (09:00)
[2020-09-22] MEDS ORDERED: AZITHROMYCIN 500 MG in DEXTROSE 5% IN WATER 250 ML IV SCH (10:00)
--- NOTE | 2020-09-22 11:01 | Discharge Summary ---
Discharge Provider Provider Patient information: Note initiated : 09/22/20 at 10:52 am Service Date, if different from initiated Date: Patient: Sam Dexter 70 y/o M admitted on 09/19/20 for syncope. Chief Complaint: Cough, Syncope and SOB Date of admission: 09/19/20 17:09 Discharge date: 09/22/20 Primary care physician: Papo Vega Consults: 09/19/20 Consult to Physician [CONS] Stat Comment: Consulting Provider: Topher Vincent Reason For Exam: Physician to Consult Discharge Meds Discharge Medications Home Medications ipratropium-albuterol 1 puff INH PRN PRN 08/16/18 [History Confirmed 09/19/20 Last Taken Unknown] isosorbide mononitrate 180 mg PO QAM 08/16/18 [History Confirmed 09/20/20 Last Taken 05/03/19 06:00] atenolol 25 mg tablet 25 mg PO DAILY tab 02/24/19 [History Confirmed 09/19/20 Last Taken 05/03/19 06:00] furosemide 40 mg PO BID #60 tab 05/10/19 [Rx Confirmed 09/19/20 Last Taken Unknown] budesonide-formoterol [Symbicort] 2 puff INHALATION BID 09/19/20 [History Confirmed 09/19/20 Last Taken Unknown] hydrocodone-acetaminophen 1 tab PO Q6H PRN 09/19/20 [History Confirmed 09/19/20 Last Taken Unknown] omeprazole 20 mg PO BID 09/19/20 [History Confirmed 09/19/20 Last Taken Unknown] pravastatin 20 mg PO QHS 09/19/20 [History Confirmed 09/20/20 Last Taken Unknown] albuterol sulfate 2 puff INHALATION Q4H PRN 09/20/20 [History Confirmed 09/20/20 Last Taken Unknown] apixaban 5 mg PO BID 09/21/20 [History Confirmed 09/21/20 Last Taken Unknown] amoxicillin-pot clavulanate [Augmentin] 1 tab PO BID #7 tab 09/22/20 [Rx Last Taken Unknown] prednisone 40 mg PO QDAY #30 tab 09/22/20 [Rx Last Taken Unknown] COURSE Hospital Course Hospital course: 70 years old male with past medical history significant for interstitial lung disease by CxR, 4L COPD, CAD, Hx of A.Flutter presented to ED with syncopal episode. He has a caregiver. My plan was to keep him another day to make sure his HR is more stable but he insist to go home. Note that the pt is not pleasant and back to full towards me and nursing staff. His hospital course is as following # Hypotension. No evidence of sepsis. Resolved with IV fluid and short course of dopamine drip. - Blood cultures negative X2 lactic acid is normal. White blood cell normal. No fever. No evidence of SIRS/sepsis -Likely due to severe dehydration/heat stroke - S/p aggressive IV fluid. Off Dopamine drip . - Dced IVF and Resumed Home Lasix . # Syncopal episode most likely vasovagal due to severe coughing spell. - Combination of Vasovagal and Dehydration - No sepsis. Rx as above. Trop negative. No syncope since admission. no indication for CT head # Acute on Chronic Hypoxic Resp failure. Baseline 4L. Needed upto 10L. Now at baseline 4L. Talks full sentecnecs - Rxed shortly with BIPAP - CxR Moderate cardiomegaly and interstitial fibrosis throughout both lungs more prominent in the lower lobes. No acute disease - Rxed with IV Rocephin/Zithro for COPD Exacerbation, Solumedrol 60mg IV TID - [place] to PO Augmentin to complete total of 7 days. -Changed Solu-Medrol to PO prednisone wit slow taper. Cont Bronchodilator. # Hx of HFpEF. Normal EF per Report at [facility] 05/12 - Most likely Right heart failure and Pulm HTN -Resumed home diuretics, lisinopril. On the day of discharge resume atenolol since no bronchospasm anymore on physical exam # Hx of A flutter RV - Now in NSR. Hold BB, CCA due to Low BP. Cont Eliquis & resumed atenolol (no bronchospasm) # Hypertension. Resume home medication as above # History of CAD. On isosorbide/ESTELA inhibitor/ Statin # Anxiety disorder continue fluoxetine/ Olanzapine # GERD continue PPI # DJD continue home dose hydrocodone # Active Tobacco use. Still smoke 10 ciggarrett a day. Counseling given. Offered Nicotine patch Code. Full code POA. Pt's Friend. Pt has no family. 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 My plan was to keep him an extra day Condition on discharge: Hemodynamically stable. Tolerated p.o. Discharge activity: As tolerated Discharge diet: Cardiac Discharge medication: See med reconciliation form Discharge follow-up: Primary care physician within 1 week for post hospital follow-up Note that patient is frail and chronically ill. Chance of readmission is high. Total time of discharge 38 minutes Discharge diagnosis: Acute on chronic hypoxic respiratory failure, syncope, dehydration Time spent discussing smoking cessation with patient: 3 to 10 minutes Time Spent with Patient Time attestation: Total time spent providing and/or coordinating discharge services: Time spent: Greater than 30 minutes (38 minutes) EXAM Constitutional Vitals: Temp Pulse Resp BP Pulse Ox 98.0 F 94 H 23 H 130/82 93 09/22/20 08:03 09/22/20 09:08 09/22/20 10:13 09/22/20 10:13 09/22/20 09:08 Discharge Data Data Completed and Pending Labs on day of discharge: Preliminary micro results at discharge 09/19/20 12:20 Blood Culture - Preliminary Blood 09/19/20 12:14 Blood Culture - Preliminary Blood Discharge Plan Patient/Caregiver Discharge Instructions Activity: increase activity as tolerated Diet: Low Sodium (2gm) and Cardiac Instructions: Prednisone (By mouth), Amoxicillin (By mouth), Syncope (DC), Acute Respiratory Failure (GEN) Activity Restrictions/Additional Instructions: Resume home diet as tolerated. Take all meals up in chair sitting at 90 degrees. Increase activity as tolerated. Continue fall precautions. Follow-up with Papo Vega. Contact the office on Sunday 09/24 to schedule Take all medication as directed. Your prescription is with your discharge paperwork. Your medications were electronically transmitted to [facility] pharmacy Take your insurance cards and photo ID to pickler helper your medication. Return to ER for fever, chills, uncontrolled pain, inability to urinate or have a bowel movement, nausea and/or vomiting, swelling, redness, signs of infection, shortness of breath, chest pain, return of symptoms, or other acute symptom This discharge packet is provided to you to help keep you informed about your care. We want to ensure you get everything you need when you go home. You will also be receiving a call from us in a few days to follow up with you and see how you are doing since your discharge. This gives us a chance to listen to any concerns you maybe experiencing since you were discharged or any additional needs you may have, as well as providing us feedback on your care experience. We strive to always provide excellent care and thank you for your feedback and for choosing [facility]. Prescriptions: New amoxicillin-pot clavulanate [Augmentin] 875-125 mg tablet 1 tab PO BID Qty: 7 RF: 0 prednisone 10 mg tablet 40 mg PO QDAY Qty: 30 RF: 0 Continued isosorbide mononitrate 60 MG tablet extended release 24 hr 180 mg PO QAM RF: 0 ipratropium-albuterol 1 PUFF inhaler 1 puff INH PRN PRN (Reason: Shortness Of Breath) RF: 0 atenolol 25 mg tablet 25 mg PO DAILY RF: 0 furosemide 20 MG tablet 40 mg PO BID Qty: 60 RF: 0 omeprazole 20 mg Capsule,Delayed Release(Dr/Ec) 20 mg PO BID RF: 0 pravastatin 20 mg Tablet 20 mg PO QHS RF: 0 budesonide-formoterol [Symbicort] 160-4.5 mcg/actuation HFA aerosol inhaler 2 puff INHALATION BID RF: 0 hydrocodone-acetaminophen 10-325 mg Tablet 1 tab PO Q6H PRN (Reason: Pain (Scale Score 7-10)) RF: 0 albuterol sulfate 90 mcg/actuation Hfa Aerosol Inhaler 2 puff INHALATION Q4H PRN (Reason: Shortness Of Breath Or Wheezing) RF: 0 apixaban 5 mg Tablet 5 mg PO BID RF: 0 Follow Up Plan Follow up with: Papo Vega MD [Primary Care Provider] - Patient Disposition: Home, Self-Care Discharge Orders: Discharge Order (Routine); Ordered 09/22/20 Ordered By: Topher MENDOZA VTE Deep Vein Thrombosis/Pulmonary Embolism Present on Admission: No
== END 2020-09-22 12:45 | disposition home or self-care (01) | DRG 312 ==
LOC: ED 11:31 → ICU 17:09
PROVIDERS: ADMIT Internal Medicine; ATTEND Internal Medicine